=== PATIENT | male | born 1995 | race Caucasian/White ===

== ENCOUNTER 2019-01-20 19:48 | Emergency (ER) | payer BC ==
[2019-01-20 20:19] LABS: BASOPHILS # (AUTO) 0.1 10^3/uL (0.0-0.1); BASOPHILS % (AUTO) 0.5 %; EOSINOPHILS # (AUTO) 0.1 10^3/uL (0.0-0.7); EOSINOPHILS % (AUTO) 0.3 %; HGB - HEMOGLOBIN 12.8 g/dL (14.0-18.0); LYMPHOCYTES # (AUTO) 1.4 10^3/uL (1.5-3.5); LYMPHOCYTES % (AUTO) 7.5 %; MEAN CORPUSCULAR HEMOGLOBIN 27.9 pg (27.0-31.0); MEAN CORPUSCULAR HGB CONC 32.5 g/dL (32.0-36.0); MEAN CORPUSCULAR VOLUME 85.8 fL (80.0-94.0); MEAN PLATELET VOLUME 9.7 fL (7.4-11.4); MONOCYTES # (AUTO) 0.7 10^3/uL (0.0-1.0); MONOCYTES % (AUTO) 3.8 %; NEUTROPHILS # (AUTO) 16.3 10^3/uL (1.5-6.6); NEUTROPHILS % (AUTO) 87.3 %; PLT - PLATELET COUNT 323 10^3/uL (130-450); RED BLOOD COUNT 4.59 10^6/uL (4.70-6.10); RED CELL DISTRIBUTION WIDTH 13.1 % (12.0-15.0); WHITE BLOOD COUNT 18.6 x10^3/uL (4.8-10.8)
[2019-01-20 20:32] LABS: ALBUMIN 4.7 g/dL (3.2-5.5); ALBUMIN/GLOBULIN RATIO 1.3 (1.0-2.2); BILIRUBIN,TOTAL 0.6 mg/dL (0.2-1.0); CALCIUM 9.2 mg/dL (8.5-10.3); CREATININE 1.1 mg/dL (0.6-1.2); TOTAL PROTEIN 8.3 g/dL (6.7-8.2)
--- NOTE | 2019-01-20 20:34 | ED Physician Documentation ---
PD HPI ABD PAIN - Stated complaint Stated Complaint: ADB PAIN - ILLEOSTOMY - Chief complaint Chief Complaint: Abd Pain - History obtained from History obtained from: Patient - History of Present Illness Timing - onset: Enter time (17:30), Today Timing - duration: Hours Timing - details: Abrupt onset Pain level max: 10 Pain level now: 9 Quality: Pain Location: All over / everywhere (predominantly across lower abdomen) Radiation: Other (does not radiate) Improved by: Vomiting (partial and transient improvement with vomiting) Worsened by: Position, Palpation Associated symptoms: Nausea, Vomiting. No: Fever, Diarrhea, Constipation Similar symptoms before: Has not had sx before (signifiant h/o abdominal problems but these symptoms are not reminiscent of previous issues) Recently seen: Not recently seen - Additional information Additional information: c/o rapid onset abdominal pain across lower abdomen since 5:30 this afternoon while at work. He left work and went home but his pain steadily worsened, becoming associated with nausea and vomiting. He has h/o Crohn's disease with bowel perforation requiring colectomy and ileostomy (October 2017). Review of Systems Constitutional: reports: Reviewed and negative Eyes: reports: Reviewed and negative Ears: reports: Reviewed and negative Nose: reports: Reviewed and negative Throat: reports: Reviewed and negative Cardiac: reports: Reviewed and negative Respiratory: reports: Reviewed and negative GI: reports: Abdominal Pain, Nausea, Vomiting. denies: Abdominal Swelling, Constipation, Diarrhea : denies: Dysuria, Frequency Skin: reports: Reviewed and negative Musculoskeletal: reports: Reviewed and negative Neurologic: reports: Reviewed and negative PD PAST MEDICAL HISTORY - Past Medical History Past Medical History: Yes GI: Crohn's disease - Past Surgical History Past Surgical History: Yes General: Bowel surgery, Other (ileostomy) - Allergies Allergies/Adverse Reactions: Allergies Allergy/AdvReac Type Severity Reaction Status Date / Time No Known Drug Allergies Allergy Verified 01/20/19 19:53 - Living Situation Living Arrangement: reports: At home - Social History Does the pt smoke?: No PD ED PE NORMAL - Vitals Vital signs reviewed: Yes - General General: Alert and oriented X 3, Well developed/nourished, Other (obvious painful distress) - HEENT HEENT: Moist mucous membranes - Neck Neck: Supple, no meningeal sign - Cardiac Cardiac: RRR, No murmur, No gallop, No rub - Respiratory Respiratory: No respiratory distress, Clear bilaterally - Abdomen Abdomen: Soft, Non distended - Back Back: No CVA TTP - Derm Derm: Normal color, Warm and dry PD ED PE EXPANDED - Abdomen Abdomen: Decreased BS, Tender to palpation (TTP diffusely but predominantly BLQ , no rebound or guarding) Results - Vitals Vitals: Vital Signs - 24 hr 01/20/19 01/20/19 01/20/19 19:53 20:44 21:40 Temperature 34.9 C L Heart Rate 88 99 76 Respiratory 22 17 15 Rate Blood Pressure 136/76 H 126/64 120/58 L O2 Saturation 100 100 100 01/20/19 01/20/19 22:27 23:08 Temperature 36.8 C Heart Rate 85 80 Respiratory 15 15 Rate Blood Pressure 122/60 110/52 L O2 Saturation 99 98 Oxygen O2 Source Room air - Labs Labs: Laboratory Tests 01/20/19 01/20/19 01/20/19 20:10 20:10 23:24 WBC 18.6 H RBC 4.59 L Hgb 12.8 L Hct 39.4 L MCV 85.8 MCH 27.9 MCHC 32.5 RDW 13.1 Plt Count 323 MPV 9.7 Neut # (Auto) 16.3 H Lymph # (Auto) 1.4 L [place] # (Auto) 0.7 Eos # (Auto) 0.1 Baso # (Auto) 0.1 Absolute Nucleated RBC 0.00 Nucleated RBC % 0.0 Sodium 137 Potassium 4.0 Chloride 102 Carbon Dioxide 24 Anion Gap 11.0 BUN 25 H Creatinine 1.1 Estimated GFR (MDRD) 85 L Glucose 120 H Calcium 9.2 Total Bilirubin 0.6 AST 23 ALT 22 Alkaline Phosphatase 98 Total Protein 8.3 H Albumin 4.7 Globulin 3.6 Albumin/Globulin Ratio 1.3 Lipase 27 Urine Color YELLOW Urine Clarity CLEAR Urine pH 5.5 Ur Specific [place] 1.020 Urine Protein 100 H Urine Glucose (UA) NEGATIVE Urine Ketones 15 H Urine Occult Blood LARGE H Urine Nitrite NEGATIVE Urine Bilirubin NEGATIVE Urine Urobilinogen 0.2 (NORMAL) Ur Leukocyte Esterase NEGATIVE Urine RBC 6-10 H Urine WBC 0-3 Ur Squamous Epith Cells RARE Squamous Urine Bacteria Rare Urine Casts 0-2 Hyaline Casts Ur Microscopic Review INDICATED Urine Culture Comments NOT INDICATED - Rads (name of study) CT A/P Radiology: Prelim report reviewed, See rad report acute abd. xrays Radiology: Prelim report reviewed, See rad report PD MEDICAL DECISION MAKING - ED course Complexity details: reviewed results, re-evaluated patient, considered differential, d/w patient ED course: good symptom control with single dose of 1mg IV dilaudid and 4mg IV zofran. did not require nor request further medications during ED stay. CT does not show acute abnormalities nor findings to explain his abdominal pain. subsequent plain film xrays showed progression of the contrast. Patient comfortable with d/c home, return if worse, f/u with PMD Departure - Departure Disposition: 01 Home, Self Care Clinical Impression: Abdominal pain Qualifiers: Abdominal location: generalized Qualified Code(s): R10.84 - Generalized abdominal pain Condition: Good Instructions: ED Abdominal Pain Unkn Cause Male Follow-Up: Sabina Pennington ARNP [Primary Care Provider] - Discharge Date/Time: 01/21/19 01:16
[2019-01-20] MEDS ORDERED: HYDROmorphone 1 MG/ML CARPUJECT IVP STA (20:49)
[2019-01-20] MEDS ORDERED: ONDANSETRON 4 MG/2 ML VIAL IVP STA (20:49)
[2019-01-20] MEDS ORDERED: SODIUM CHLORIDE 0.9% 1,000 ML IV STA (20:49)
[2019-01-20] MEDS ORDERED: IOVERSOL 320 100 ML VIAL IVP ONE ×2 (20:51→22:08)
[2019-01-20] MEDS ORDERED: IOVERSOL 320 50 ML VIAL ONE (20:51)
[2019-01-20] MEDS ORDERED: IOVERSOL 320 50 ML VIAL PO ONE (22:08)
--- NOTE | 2019-01-20 22:27 | CT Report ---
Reason: abdominal pain, ileostomy Procedure Date: 01/20/2019 Accession Number: [id number] / [id number] Procedure: CT - Abdomen/Pelvis W CPT Code: Final Report FULL RESULT: EXAM: CT ABDOMEN AND PELVIS EXAM DATE: 01/20/2019 10:10 PM. CLINICAL HISTORY: Abdominal pain, ileostomy. COMPARISONS: None. TECHNIQUE: Routine helical CT imaging was performed through the abdomen and pelvis. IV contrast: OPTI 320 100ML. Enteric contrast: No. Reconstructions: Coronal and sagittal. In accordance with CT protocol optimization, one or more of the following dose reduction techniques were utilized for this exam: automated exposure control, adjustment of mA and/or KV based on patient size, or use of iterative reconstructive technique. FINDINGS: Lung Bases: Unremarkable. Liver: Normal. No masses. Gallbladder/Bile Ducts: Unremarkable. Spleen: Normal. Pancreas: Normal. Adrenal Glands: Normal. Kidneys: Normal. No masses or hydronephrosis. Peritoneal Cavity/Bowel: Oral contrast has reached the mid small bowel. Right lower quadrant ileostomy is noted. There is no bowel dilatation that would suggest obstruction. No free air or free fluid. Patient is status post subtotal colectomy, suture line is seen along the proximal rectum. Pelvic Organs: Normal. The bladder and visualized pelvic organs are within normal limits. Vasculature: No aneurysms or other significant abnormality. Bones: No significant abnormality. Other: None. IMPRESSION: Status post subtotal colectomy, with right lower quadrant ileostomy. Oral contrast has only reached the mid small bowel, but there is no CT evidence of a bowel obstruction. Obtain abdominal radiographs if desire to watch contrast fill the ileostomy. Otherwise unremarkable exam. RADIA
[2019-01-20 23:08] VITALS: BP 110/52
[2019-01-20 23:28] LABS: BILIRUBIN,URINE NEGATIVE (NEGATIVE); GLUCOSE, URINE (UA) NEGATIVE (NEGATIVE); KETONES,URINE (UA) 15 mg/dL (NEGATIVE); LEUKOCYTE ESTERASE, URINE NEGATIVE (NEGATIVE); NITRITE,URINE NEGATIVE (NEGATIVE); OCCULT BLOOD,URINE LARGE (NEGATIVE); PH,URINE 5.5 PH (5.0-7.5); PROTEIN,URINE 100 mg/dL (NEGATIVE); UROBILINOGEN,URINE 0.2 (NORMAL) E.U./dL (NORMAL)
[2019-01-20 23:31] LABS: CLARITY,URINE CLEAR (CLEAR)
[2019-01-20 23:41] LABS: BACTERIA,URINE Rare /HPF (None Seen); CASTS, URINE 0-2 Hyaline Casts /LPF; SQUAMOUS EPITHELIAL CELL,UR RARE Squamous (<= Few)
--- NOTE | 2019-01-21 00:38 | XRAY Report ---
Reason: abd. pain Procedure Date: 01/21/2019 Accession Number: [id number] / [id number] Procedure: XR - Abdomen Acute CPT Code: Final Report FULL RESULT: EXAM: ABDOMINAL SERIES AND PA CHEST EXAM DATE: 01/21/2019 12:19 AM. CLINICAL HISTORY: Abd. pain. COMPARISON: ABDOMEN/PELVIS W/ 01/20/2019 9:58 PM. TECHNIQUE: 2 views abdomen and 1 view chest. FINDINGS: CHEST: Lungs/Pleura: No focal opacities. No effusion or pneumothorax. Mediastinum: Within exam limitations, cardiomediastinal contour is normal. ABDOMEN: Bowel Gas Pattern: No dilated loops or abnormal fluid levels. Free Air: None. Other: Oral contrast material in the distal small bowel. Excreted intravenous contrast material in the urinary collecting system. IMPRESSION: Interval passage of contrast material into distal loops of small bowel. RADIA
== END 2019-01-21 01:16 | disposition home or self-care (01) ==
LOC: ED 19:48
DX: R10.84 Generalized abdominal pain (principal); R11.2 Nausea with vomiting, unspecified; Z87.19 Personal history of other diseases of the digestive system; Z90.49 Acquired absence of other specified parts of digestive tract; Z93.2 Ileostomy status
CPT/HCPCS: 36415; 74022; 74177; 80053; 81001; 83690; 85025; 96361; 96374; 96375; 99284; J1170; Q9967; 81003; 87086

== ENCOUNTER 2019-05-05 21:34 | Emergency (ER) | payer OTHER, BC ==
--- NOTE | 2019-05-05 21:54 | ED Physician Documentation ---
History of Present Illness - Stated complaint Stated Complaint: VOMITING/AB PX - Chief complaint Chief Complaint: Abd Pain - Additonal information Additional information: 23-year-old male with history of Crohn's disease status post ileostomy presents with abdominal pain. He states his current pain began this morning and has progressed through the day and is now 10 out of 10 and severe but worse in his left lower quadrant. He has not noticed changes to the output of his ostomy. No blood in his stool or in his vomit. He has thrown up several times today. No fever. No pain or burning with urination. He follows with the [facility]. Review of Systems Constitutional: denies: Fever Nose: denies: Rhinorrhea / runny nose Cardiac: denies: Chest pain / pressure GI: reports: Abdominal Pain, Vomiting : denies: Dysuria Skin: denies: Rash Neurologic: denies: Generalized weakness Immunocompromised: denies: Immunocompromised PD PAST MEDICAL HISTORY - Past Medical History GI: Crohn's disease - Past Surgical History Past Surgical History: Yes General: Bowel surgery, Other (ileostomy) - Allergies Allergies/Adverse Reactions: Allergies Allergy/AdvReac Type Severity Reaction Status Date / Time No Known Drug Allergies Allergy Verified 01/20/19 19:53 - Social History Does the pt smoke?: No PD ED PE NORMAL - Vitals Vital signs reviewed: Yes - General General: Alert and oriented X 3, Other (Uncomfortable but nontoxic-appearing) - HEENT HEENT: PERRL - Neck Neck: Supple, no meningeal sign - Cardiac Cardiac: RRR, No murmur - Respiratory Respiratory: No respiratory distress, Clear bilaterally - Abdomen Abdomen: Other (Well-healed abdominal incisional scars, ostomy present with liquidy output. Diffuse tenderness but no guarding, No focal tenderness.) - Derm Derm: Warm and dry - Extremities Extremities: No deformity - Neuro Neuro: Alert and oriented X 3 Results - Vitals Vitals: Oxygen O2 Source Room air - Labs Labs: Laboratory Tests 05/05/19 05/05/19 21:50 21:50 WBC 18.8 H RBC 5.49 Hgb 15.3 Hct 46.6 MCV 84.9 MCH 27.9 MCHC 32.8 RDW 12.9 Plt Count 399 MPV 9.7 Neut # (Auto) 15.2 H Lymph # (Auto) 2.5 [place] # (Auto) 0.9 Eos # (Auto) 0.0 Baso # (Auto) 0.1 Absolute Nucleated RBC 0.00 Nucleated RBC % 0.0 Sodium 136 Potassium 3.8 Chloride 101 Carbon Dioxide 22 Anion Gap 13.0 BUN 23 H Creatinine 1.2 Estimated GFR (MDRD) 76 L Glucose 149 H Calcium 9.4 Total Bilirubin 0.9 AST 29 ALT 25 Alkaline Phosphatase 95 Total Protein 8.9 H Albumin 4.7 Globulin 4.3 H Albumin/Globulin Ratio 1.1 Lipase 24 - Rads (name of study) CT abd/pelvis W Radiology: Other (Dilated small bowel loops with transition point suggestive of developing partial to complete SBO. Inflammation of small bowel that may be due to Crohn's.) PD MEDICAL DECISION MAKING - ED course Complexity details: considered differential (Obstruction, Crohn's flare, enteritis, cystitis, pancreatitis, bowel perforation, gastritis) ED course: Patient arrives very uncomfortable, is hemodynamically stable, he has a tender abdomen. IV was inserted and he was given morphine but did not have adequate pain relief so he was given hydromorphone as well as Zofran and Reglan for nausea and a liter of fluids bolus. He had a white count of 18.8 and he is exquisitely tender abdomen so CT was ordered which showed dilated bowel, transition point as well as small bowel inflammation consistent with a likely Crohn's flare with developing bowel obstruction. This appears partial at this time as he is having ostomy output. I spoke with Dr. Garrison of our general surgery service and she feels the patient be best served at a center with more specialty availability as well as GI. I spoke with Dr. Flores of gastroenterology [facility], who accepted the patient for transfer. She states steroids can be defered until his arrival there. Patient and his mother are in agreement with this plan. He did require additional doses of pain medication as well as nausea medication to keep his pain controlled. He remains hemodynamically stable at the time of transfer via ALS. Departure - Departure Disposition: 02 Transfer Acute Care Hosp Clinical Impression: Crohn's disease Qualifiers: Gastrointestinal tract location: unspecified location Digestive disease complication type: unspecified complication Qualified Code(s): K50.919 - Crohn's disease, unspecified, with unspecified complications Bowel obstruction Qualifiers: Intestinal obstruction type: unspecified Intestinal obstruction extent: unspe cified extent Qualified Code(s): K56.609 - Unspecified intestinal obstruction, unspecified as to partial versus complete obstruction Condition: Stable Discharge Date/Time: 05/06/19 03:45
[2019-05-05] MEDS ORDERED: MORPHINE 10 MG/ML VIAL IVP STA (22:02)
[2019-05-05] MEDS ORDERED: ONDANSETRON 4 MG/2 ML VIAL IVP STA (22:02)
[2019-05-05] MEDS ORDERED: SODIUM CHLORIDE 0.9% 1,000 ML IV STA (22:02)
[2019-05-05 22:08] LABS: BASOPHILS # (AUTO) 0.1 10^3/uL (0.0-0.1); BASOPHILS % (AUTO) 0.4 %; EOSINOPHILS % (AUTO) 0.2 %; HGB - HEMOGLOBIN 15.3 g/dL (14.0-18.0); LYMPHOCYTES # (AUTO) 2.5 10^3/uL (1.5-3.5); LYMPHOCYTES % (AUTO) 13.1 %; MEAN CORPUSCULAR HEMOGLOBIN 27.9 pg (27.0-31.0); MEAN CORPUSCULAR HGB CONC 32.8 g/dL (32.0-36.0); MEAN CORPUSCULAR VOLUME 84.9 fL (80.0-94.0); MEAN PLATELET VOLUME 9.7 fL (7.4-11.4); MONOCYTES # (AUTO) 0.9 10^3/uL (0.0-1.0); MONOCYTES % (AUTO) 4.6 %; NEUTROPHILS # (AUTO) 15.2 10^3/uL (1.5-6.6); PLT - PLATELET COUNT 399 10^3/uL (130-450); RED BLOOD COUNT 5.49 10^6/uL (4.70-6.10); RED CELL DISTRIBUTION WIDTH 12.9 % (12.0-15.0); WHITE BLOOD COUNT 18.8 x10^3/uL (4.8-10.8)
[2019-05-05 22:21] LABS: ALBUMIN 4.7 g/dL (3.2-5.5); ALBUMIN/GLOBULIN RATIO 1.1 (1.0-2.2); BILIRUBIN,TOTAL 0.9 mg/dL (0.2-1.0); CALCIUM 9.4 mg/dL (8.5-10.3); CREATININE 1.2 mg/dL (0.6-1.2); TOTAL PROTEIN 8.9 g/dL (6.7-8.2)
[2019-05-05] MEDS ORDERED: HYDROmorphone 1 MG/ML SYRINGE IVP STA (22:36)
[2019-05-05] MEDS ORDERED: METOCLOPRAMIDE 10 MG/2 ML VIAL IVP PRN (22:37)
[2019-05-05] MEDS ORDERED: IOVERSOL 320 100 ML VIAL IVP ONE ×2 (22:44→23:08)
[2019-05-06] MEDS ORDERED: HYDROmorphone 1 MG/ML SYRINGE ONE (00:02)
--- NOTE | 2019-05-06 00:02 | CT Report ---
Reason: Crohn's, s/p ileostomy, severe diffuse pain Procedure Date: 05/05/2019 Accession Number: [id number] / [id number] Procedure: CT - Abdomen/Pelvis W CPT Code: Final Report FULL RESULT: EXAM: CT ABDOMEN AND PELVIS WITH CONTRAST. EXAM DATE: 05/05/2019 11:11 PM. CLINICAL HISTORY: Crohn's, status post ileostomy, severe diffuse pain. COMPARISONS: ABDOMEN/PELVIS W/ 01/20/2019 9:58 PM. TECHNIQUE: Routine helical CT imaging was performed through the abdomen and pelvis. IV contrast: OPTIRAY 320 100 mL. Enteric contrast: No. Reconstructions: Coronal and sagittal. In accordance with CT protocol optimization, one or more of the following dose reduction techniques were utilized for this exam: automated exposure control, adjustment of mA and/or KV based on patient size, or use of iterative reconstructive technique. FINDINGS: ABDOMEN: Liver: No significant abnormality. Stomach/Distal Esophagus: No significant abnormality. Gallbladder: No significant abnormality. Bile Ducts: No significant abnormality. Pancreas: No significant abnormality. Spleen: No significant abnormality. Kidneys: No suspicious solid appearing lesion. No hydronephrosis. Adrenals: No significant abnormality. Bowel: Right lower quadrant ileostomy. Prior total colectomy noted. There is a moderately dilated loop of small bowel within the left lower quadrant region measuring 4 cm in diameter. There is a transition seen near the aortic bifurcation (image 55 series 3). Multifocal areas of small bowel wall thickening seen within the right lower quadrant region, coupled with surrounding inflammatory mesenteric stranding. Mild associated mesenteric lymphadenopathy is also noted. Appendix: Surgically absent. Lymph Nodes: No pathologically enlarged nodes. Vasculature: Normal caliber aorta. Fluid: No significant free fluid. Abdominal Wall: No significant abnormality. Other: No significant abnormality. PELVIS: Prostate and Seminal Vesicles: No significant abnormality. Bladder: No significant abnormality. Lymph Nodes: No pathologically enlarged nodes. Fluid: No significant free fluid. Other: None. BONES: No suspicious bony lesions. LOWER CHEST: No significant consolidation or effusion. IMPRESSION: 1. Dilated left lower quadrant small bowel loops with a transition within the central portion of the abdomen. Findings raise the possibility of partial and/or developing complete bowel obstruction. 2. Small bowel wall thickening and surrounding mesenteric stranding seen within the right lower quadrant region, representing inflammatory change. This could be secondary to known Crohn's disease. Other inflammatory enteritis difficult to exclude with certainty. 3. Prior total colectomy. Right lower quadrant ileostomy. RADIA
[2019-05-06] MEDS ORDERED: ONDANSETRON 4 MG/2 ML VIAL IVP STA ×2 (00:10→02:52)
[2019-05-06] MEDS ORDERED: HYDROmorphone 1 MG/ML SYRINGE IVP STA ×2 (02:52→03:08)
[2019-05-06] MEDS ORDERED: LACTATED RINGERS 1,000 ML IV SCH (03:00)
[2019-05-06 03:09] VITALS: BP 146/95
== END 2019-05-06 03:45 | disposition short-term general hospital (02) ==
LOC: ED 21:34
DX: K50.012 Crohn's disease of small intestine with intestinal obstruction (principal); Z90.49 Acquired absence of other specified parts of digestive tract; Z93.2 Ileostomy status
CPT/HCPCS: 36415; 74177; 80053; 83690; 85025; 96361; 96374; 96375; 96376; 99284; 99285; J1170; J2765; J7120; Q9967

== ENCOUNTER 2019-05-06 03:54 | Outpatient (CLI) | payer OTHER, BC | END 2019-05-06 03:55 | disposition short-term general hospital (02) | LOC: EMS 03:54 | PROVIDERS: ATTEND Surgery | DX: R10.30 Lower abdominal pain, unspecified (principal); R11.2 Nausea with vomiting, unspecified | CPT/HCPCS: A0425; A0426 ==

== ENCOUNTER 2019-09-06 06:13 | Emergency (ER) | payer OTHER, BC ==
[2019-09-06] MEDS ORDERED: ONDANSETRON 4 MG/2 ML VIAL IVP STA ×3 (06:33→12:22)
[2019-09-06] MEDS ORDERED: HYDROmorphone 0.5 MG/0.5 ML SYRINGE IVP STA (06:33)
[2019-09-06] MEDS ORDERED: SODIUM CHLORIDE 0.9% 1,000 ML IV STA ×2 (06:33→14:23)
--- NOTE | 2019-09-06 06:36 | ED Physician Documentation ---
<Elmo Miles - Last Filed: 09/06/19 06:34> History of Present Illness - Stated complaint Stated Complaint: N/V - Chief complaint Chief Complaint: Abd Pain - History obtained from History obtained from: Patient (23 y/o m w hx of crohns w ileostomy w hx of bowel obstructions w surgery originally performed in [place], [place]. Currently followed by GI in [place], was admitted there in April 2019. Reports severe pain with vomiting. denies fevers.) Review of Systems Constitutional: reports: Reviewed and negative Eyes: reports: Reviewed and negative Ears: reports: Reviewed and negative Nose: reports: Reviewed and negative Throat: reports: Reviewed and negative Cardiac: reports: Reviewed and negative Respiratory: reports: Reviewed and negative GI: reports: Abdominal Pain, Abdominal Swelling, Nausea, Vomiting : reports: Reviewed and negative Skin: reports: Reviewed and negative Musculoskeletal: reports: Reviewed and negative Neurologic: reports: Reviewed and negative Psychiatric: reports: Reviewed and negative Endocrine: reports: Reviewed and negative Immunocompromised: reports: Reviewed and negative PD PAST MEDICAL HISTORY - Past Medical History Cardiovascular: None Respiratory: None Neuro: None Endocrine/Autoimmune: None GI: Crohn's disease : None HEENT: None Psych: None Musculoskeletal: None Derm: None - Past Surgical History Past Surgical History: Yes General: Bowel surgery, Other (ileostomy) - Present Medications Home Medications: Ambulatory Orders Medication Instructions Recorded Confirmed Minocycline HCl 1 cap PO DAILY 09/06/19 09/06/19 Multivitamin [Multivitamins] 1 cap PO DAILY 09/06/19 09/06/19 - Allergies Allergies/Adverse Reactions: Allergies Allergy/AdvReac Type Severity Reaction Status Date / Time No Known Drug Allergies Allergy Verified 09/06/19 07:04 - Social History Does the pt smoke?: No Smoking Status: Never smoker - Immunizations Immunizations are current?: Yes - POLST Patient has POLST: No PD ED PE NORMAL - Vitals Vital signs reviewed: Yes - General General: Alert and oriented X 3, Well developed/nourished, Other (moaning in pain.) - HEENT HEENT: PERRL - Neck Neck: Supple, no meningeal sign - Cardiac Cardiac: RRR, No murmur - Respiratory Respiratory: Clear bilaterally - Abdomen Abdomen: Other (ostomy in place, no blood noted. abd is diffusely ttp. no midline abd pulsatile mass. ) - Derm Derm: Warm and dry - Extremities Extremities: No deformity - Neuro Neuro: Alert and oriented X 3 - Psych Psych: Normal mood, Normal affect PD MEDICAL DECISION MAKING - ED course Complexity details: re-evaluated patient, considered differential (hx and exam concerning for bowel obstruction.), d/w patient, d/w family, other (patient is signed out to dr. good at shift change.) Departure - Departure Disposition: 02 Transfer Acute Care Hosp Clinical Impression: Abdominal pain Qualifiers: Abdominal location: unspecified location Qualified Code(s): R10.9 - Unspecified abdominal pain Crohn's disease Qualifiers: Gastrointestinal tract location: small intestine Digestive disease complication type: unspecified complication Qualified Code(s): K50.019 - Crohn's disease of small intestine with unspecified complications Bowel obstruction Qualifiers: Intestinal obstruction type: other intestinal obstruction Intestinal obstruction extent: unspecified extent Qualified Code(s): K56.699 - Other intestinal obstruction unspecified as to partial versus complete obstruction Condition: Stable <Satish Good - Last Filed: 09/06/19 10:53> History of Present Illness - History obtained from History obtained from: Patient, Family - History of Present Illness Timing: Enter time (2100), Last night - Additonal information Additional information: 23-year-old male with an 8-year history of Crohn's colitis as developed symptoms again of severe pain and vomiting. He has had a reduced output from his ostomy. He is on Entyvio and is due for an injection in 3 days. He is due to see his apprenticeship training representative in 2 days. He reports fair improvement since starting the Entyvio. He indicates that he will sometimes have symptoms with overeating and sometimes have symptoms when he has too much fluid with solid foods. Indicates he was not ill prior to this did have a sore throat for 1 day with mild pain with swallowing only. Review of Systems Constitutional: reports: Fatigue. 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15 Hgb 14.5 Hct 42.5 MCV 82.5 MCH 28.2 MCHC 34.1 RDW 12.5 Plt Count 369 MPV 9.6 Neut # (Auto) 19.0 H Lymph # (Auto) 1.5 Ogle # (Auto) 0.9 Eos # (Auto) 0.0 Baso # (Auto) 0.1 Absolute Nucleated RBC 0.00 Band Neuts % (Manual) Not Reportable Abnorm Lymph % (Manual) Not Reportable Nucleated RBC % 0.0 Neutrophils # (Manual) Not Reportable Lymphocytes # (Manual) Not Reportable Monocytes # (Manual) Not Reportable Eosinophils # (Manual) Not Reportable Basophils # (Manual) Not Reportable Differential Comment MANUAL=AUTO DIFF WBC Morphology NORMAL APPEARANCE Platelet Estimate NORMAL (130-450,000) Platelet Morphology NORMAL APPEARANCE RBC Morph Micro Appear NORMAL APPEARANCE PT 13.8 H INR 1.2 APTT 31.1 Sodium 136 Potassium 3.6 Chloride 102 Carbon Dioxide 19 L Anion Gap 15.0 H BUN 26 H Creatinine 1.2 Estimated GFR (MDRD) 76 L Glucose 159 H Lactic Acid Calcium 9.8 Magnesium 1.7 Total Bilirubin 1.5 H AST 24 ALT 18 Alkaline Phosphatase 77 Total Creatine Kinase 320 H Total Protein 8.2 Albumin 5.0 Globulin 3.2 Albumin/Globulin Ratio 1.6 Lipase 36 Ethyl Alcohol < 5.0 09/06/19 06:55 WBC RBC Hgb Hct MCV MCH MCHC RDW Plt Count MPV Neut # (Auto) Lymph # (Auto) Ogle # (Auto) Eos # (Auto) Baso # (Auto) Absolute Nucleated RBC Band Neuts % (Manual) Abnorm Lymph % (Manual) Nucleated RBC % Neutrophils # (Manual) Lymphocytes # (Manual) Monocytes # (Manual) Eosinophils # (Manual) Basophils # (Manual) Differential Comment WBC Morphology Platelet Estimate Platelet Morphology RBC Morph Micro Appear PT INR APTT Sodium Potassium Chloride Carbon Dioxide Anion Gap BUN Creatinine Estimated GFR (MDRD) Glucose Lactic Acid 1.8 Calcium Magnesium Total Bilirubin AST ALT Alkaline Phosphatase Total Creatine Kinase Total Protein Albumin Globulin Albumin/Globulin Ratio Lipase Ethyl Alcohol - Rads (name of study) CT AB/PEL Radiology: Prelim report reviewed (Impression: 1. The CT findings are consistent with high-grade small bowel obstruction. 2. Postsurgical changes with near total colectomy. There is an ileostomy in the right lower quadrant.), EMP read indepedently, See rad report PD MEDICAL DECISION MAKING - ED course Complexity details: reviewed old records, reviewed results, re-evaluated patient, considered differential, d/w patient, d/w family ED course: 23-year-old male with history of Crohn's disease appears to have an acute flare several days before his next dose of Entyvio. The patient peers to be in pain and is vomiting. He is administered antiemetics and pain medication and he is hydrated. A CT scan of the abdomen pelvis is undertaken. The CT scan shows a high-grade obstruction similar to previous and the apprenticeship training representative Dr. Ponce at [facility] in [place] is consulted and she recommends transfer the patient for admission to the hospitalist service and conservative therapy. She indicates that 4 months of Entyvio and the persistence of an obstructive area would suggest fibrotic tissue area of narrowing that may require surgery or this may continue to recur.Patient is treated here in the emergency department with saline Dilaudid and Zofran with improvement.
[2019-09-06 07:05] LABS: BASOPHILS # (AUTO) 0.1 10^3/uL (0.0-0.1); BASOPHILS % (AUTO) 0.3 %; HGB - HEMOGLOBIN 14.5 g/dL (14.0-18.0); LYMPHOCYTES # (AUTO) 1.5 10^3/uL (1.5-3.5); LYMPHOCYTES % (AUTO) 6.8 %; MEAN CORPUSCULAR HEMOGLOBIN 28.2 pg (27.0-31.0); MEAN CORPUSCULAR HGB CONC 34.1 g/dL (32.0-36.0); MEAN CORPUSCULAR VOLUME 82.5 fL (80.0-94.0); MEAN PLATELET VOLUME 9.6 fL (7.4-11.4); MONOCYTES # (AUTO) 0.9 10^3/uL (0.0-1.0); MONOCYTES % (AUTO) 4.2 %; NEUTROPHILS % (AUTO) 87.9 %; PLT - PLATELET COUNT 369 10^3/uL (130-450); RED BLOOD COUNT 5.15 10^6/uL (4.70-6.10); RED CELL DISTRIBUTION WIDTH 12.5 % (12.0-15.0); WHITE BLOOD COUNT 21.7 x10^3/uL (4.8-10.8)
[2019-09-06] MEDS ORDERED: IOVERSOL 320 100 ML VIAL IVP ONE ×2 (07:06→08:33)
[2019-09-06 07:09] LABS: INR 1.2 (0.8-1.2); PT - PROTHROMBIN TIME 13.8 secs (9.9-12.6)
[2019-09-06 07:16] LABS: PARTIAL THROMBOPLASTIN TIME 31.1 secs (24.9-33.3)
[2019-09-06 07:17] LABS: ALBUMIN/GLOBULIN RATIO 1.6 (1.0-2.2); ALKALINE PHOSPHATASE 77 IU/L (42-121); ALT ALANINE AMINOTRANSFERASE 18 IU/L (10-60); AST ASPARTATE AMINOTRANSFERASE 24 IU/L (10-42); BILIRUBIN,TOTAL 1.5 mg/dL (0.2-1.0); BUN - BLOOD UREA NITROGEN 26 mg/dL (6-20); CALCIUM 9.8 mg/dL (8.5-10.3); CARBON DIOXIDE - CO2 19 mmol/L (21-32); CHLORIDE 102 mmol/L (101-111); CK- CREATINE KINASE 320 IU/L (22-269); CREATININE 1.2 mg/dL (0.6-1.2); GLUCOSE 159 mg/dL (70-100); LIPASE 36 U/L (22-51); MAGNESIUM 1.7 mg/dL (1.7-2.8); SODIUM 136 mmol/L (135-145); TOTAL PROTEIN 8.2 g/dL (6.7-8.2)
[2019-09-06 07:30] LABS: PLATELET ESTIMATE, MANUAL NORMAL (130-450,000) (NORMAL); PLATELET MORPHOLOGY NORMAL APPEARANCE (NORMAL); RBC MORPHOLOGY (MULTIPLE) NORMAL APPEARANCE (NORMAL)
[2019-09-06 07:31] LABS: DIFFERENTIAL COMMENT MANUAL=AUTO DIFF
[2019-09-06] MEDS ORDERED: HYDROmorphone 1 MG/ML CARPUJECT IVP STA ×4 (07:31→16:02)
--- NOTE | 2019-09-06 08:58 | CT Report ---
PROCEDURE: Abdomen/Pelvis W INDICATIONS: abd pain CONTRAST: IV CONTRAST: Optiray 320 ml: 100 PO CONTRAST: *NO PO CONTRAST TECHNIQUE: After the administration of oral and intravenous contrast, 5 mm thick sections acquired from the diap hragms to the symphysis. 5 mm thick coronal and sagittal reformats were acquired. For radiation dos e reduction, the following was used: automated exposure control, adjustment of mA and/or kV accordin g to patient size. COMPARISON: CT abdomen and pelvis with contrast 05/05/2019 and 01/20/2019. FINDINGS: Image quality: Excellent. ABDOMEN: Lung bases: Lung bases are clear. Heart size is normal. Solid organs: Liver and spleen are normal in size and enhancement. Gallbladder is normal Biliary s ystem is non dilated. Pancreas enhances normally. No adrenal nodules. Kidneys demonstrate normal s ize and enhancement, without hydronephrosis. Peritoneum and bowel: There is near-total right colectomy. There is a ileostomy in the right lower qu adrant. Small bowel loops are mildly distended measuring up to 3.8 cm in diameter. There is an air-fl uid level in mid abdomen. A transitional point is identified in the mid abdomen with decompressed sma ll intestine.. No free fluid or air. Nodes and vessels: No retroperitoneal or mesenteric adenopathy by size criteria. Slightly prominent mesenteric lymph nodes are noted. Aorta and inferior vena cava are normal in size. Miscellaneous: No ventral hernias. PELVIS: Genitourinary: Bladder wall thickness is normal. Miscellaneous: No inguinal hernias or adenopathy. Bones: No suspicious bony lesions. No vertebral body compression fractures. IMPRESSION: 1. The CT findings are consistent with high-grade small bowel obstruction. 2. Postsurgical changes with near total colectomy. There is an ileostomy in the right lower quadrant. Reviewed by: Eduardo Kauffman MD on 09/06/2019 8:57 AM PDT Approved by: Eduardo Kauffman MD on 09/06/2019 8:57 AM PDT Station ID: [id number]
[2019-09-06 15:41] VITALS: BP 134/76
== END 2019-09-06 16:25 | disposition short-term general hospital (02) ==
LOC: ED 06:13
DX: K50.012 Crohn's disease of small intestine with intestinal obstruction (principal); Z90.49 Acquired absence of other specified parts of digestive tract; Z93.2 Ileostomy status
CPT/HCPCS: 36415; 74177; 80053; 80320; 82550; 83605; 83690; 83735; 85025; 85610; 85730; 96361; 96374; 96375; 96376; 99285; J1170; Q9967

== ENCOUNTER 2020-07-31 22:01 | Emergency (ER) | payer OTHER, BC ==
[2020-07-31 22:34] LABS: BASOPHILS # (AUTO) 0.1 10^3/uL (0.0-0.1); BASOPHILS % (AUTO) 0.3 %; EOSINOPHILS # (AUTO) 0.1 10^3/uL (0.0-0.7); EOSINOPHILS % (AUTO) 0.7 %; HCT - HEMATOCRIT 44.5 % (42.0-52.0); HGB - HEMOGLOBIN 14.7 g/dL (14.0-18.0); LYMPHOCYTES # (AUTO) 1.6 10^3/uL (1.5-3.5); LYMPHOCYTES % (AUTO) 10.1 %; MEAN CORPUSCULAR HEMOGLOBIN 27.6 pg (27.0-31.0); MEAN CORPUSCULAR VOLUME 83.6 fL (80.0-94.0); MEAN PLATELET VOLUME 9.7 fL (7.4-11.4); MONOCYTES % (AUTO) 6.1 %; NEUTROPHILS # (AUTO) 13.3 10^3/uL (1.5-6.6); NEUTROPHILS % (AUTO) 82.4 %; PLT - PLATELET COUNT 279 10^3/uL (130-450); RED BLOOD COUNT 5.32 10^6/uL (4.70-6.10); WHITE BLOOD COUNT 16.2 x10^3/uL (4.8-10.8)
[2020-07-31 22:44] LABS: ALBUMIN 4.8 g/dL (3.2-5.5); ALBUMIN/GLOBULIN RATIO 1.3 (1.0-2.2); BILIRUBIN,TOTAL 1.2 mg/dL (0.2-1.0); CALCIUM 9.5 mg/dL (8.5-10.3); POTASSIUM 4.2 mmol/L (3.5-5.0); TOTAL PROTEIN 8.5 g/dL (6.7-8.2)
--- NOTE | 2020-07-31 22:48 | ED Physician Documentation ---
PD HPI ABD PAIN - Stated complaint Stated Complaint: ABD PX - Chief complaint Chief Complaint: Abd Pain - History obtained from History obtained from: Patient - History of Present Illness Timing - onset: Enter time (10:00), Today Timing - details: Gradual onset Pain level max: 8 Pain level now: 3 Quality: Cramping Location: All over / everywhere (greatest around ostomy site) Radiation: Other (does not radiate) Improved by: Other (no ameliorating factors) Worsened by: Eating, Other (vomiting) Associated symptoms: Nausea, Vomiting. No: Fever, Diarrhea Similar symptoms before: Diagnosis (SBO, IBD) Recently seen: Not recently seen - Additional information Additional information: c/o gradual onset abdominal cramping pain, waxing and waning since 10 AM this morning. Frequency, intensity, and duration of pain increasingly steadily all day, becoming associated with nausea and vomiting and decreasing ostomy output. He is no longer able to tolerate any PO tonight. He has h/o multiple episodes of SBO without apparent cause despite extensive testing. He has an ostomy after subtotal colectomy that was performed in 2018 when he had perforated bowel due to IBD (Crohn's disease). He was admitted to [facility] twice last year (transferred from this ED) for SBO; he says both of these inpatient stays were 3-5 days and managed with IV steroids, antibiotics, and bowel rest. Review of Systems Constitutional: denies: Fever, Chills, Sweats Eyes: reports: Reviewed and negative Ears: reports: Reviewed and negative Nose: reports: Reviewed and negative Throat: reports: Reviewed and negative Cardiac: reports: Reviewed and negative Respiratory: reports: Reviewed and negative GI: reports: Abdominal Pain, Nausea, Vomiting. denies: Constipation, Diarrhea : denies: Dysuria, Frequency Skin: reports: Reviewed and negative Musculoskeletal: reports: Reviewed and negative Neurologic: reports: Reviewed and negative PD PAST MEDICAL HISTORY - Past Medical History Cardiovascular: None Respiratory: None Neuro: None Endocrine/Autoimmune: None GI: Crohn's disease : None HEENT: None Psych: None Musculoskeletal: None Derm: None - Past Surgical History Past Surgical History: Yes General: Bowel surgery, Other - Present Medications Home Medications: Ambulatory Orders Medication Instructions Recorded Confirmed Minocycline HCl 1 cap PO DAILY 09/06/19 08/01/20 Multivitamin [Multivitamins] 1 tab.chew PO DAILY 09/06/19 08/01/20 L.acid/L.casei/B.bif/B.ankit/Fos 2 cap PO DAILY 08/01/20 08/01/20 [Probiotic Blend Capsule] Loratadine [Allergy Relief] 10 mg PO DAILY 08/01/20 08/01/20 Turmeric 1 cap PO DAILY 08/01/20 08/01/20 - Allergies Allergies/Adverse Reactions: Allergies Allergy/AdvReac Type Severity Reaction Status Date / Time No Known Drug Allergies Allergy Verified 07/31/20 22:21 - Social History Does the pt smoke?: No Smoking Status: Never smoker Does the pt drink ETOH?: Yes Does the pt have substance abuse?: No - Immunizations Immunizations are current?: Yes - POLST Patient has POLST: No PD ED PE NORMAL - Vitals Vital signs reviewed: Yes - General General: Alert and oriented X 3, Well developed/nourished, Other (NAD at times but episodic obvious painful distress) - HEENT HEENT: Other (tacky mucous membranes) - Neck Neck: Supple, no meningeal sign - Cardiac Cardiac: RRR, No murmur - Respiratory Respiratory: No respiratory distress, Clear bilaterally - Abdomen Abdomen: Soft PD ED PE EXPANDED - Abdomen Abdomen: Absent BS, Tender to palpation (mild periumbilical tenderness to palpation without rebound or guarding) Results - Vitals Vitals: Vital Signs - 24 hr 08/01/20 08/01/20 08/01/20 00:45 02:05 03:06 Temperature 36.7 C Heart Rate 75 95 70 Respiratory 15 18 16 Rate Blood Pressure 107/54 L 106/56 L 124/69 O2 Saturation 100 100 99 08/01/20 08/01/20 08/01/20 04:20 04:50 05:00 Temperature Heart Rate 102 H 75 89 Respiratory 18 18 18 Rate Blood Pressure 120/64 123/69 123/69 O2 Saturation 100 96 100 08/01/20 08/01/20 08/01/20 05:13 05:46 06:56 Temperature 36.6 C Heart Rate 67 70 71 Respiratory 16 18 16 Rate Blood Pressure 122/61 136/68 H 113/60 O2 Saturation 95 98 99 08/01/20 08/01/20 08/01/20 08:00 10:00 11:30 Temperature 36.2 C L Heart Rate 71 71 65 Respiratory 16 14 14 Rate Blood Pressure 113/60 125/59 L 112/65 O2 Saturation 100 100 99 08/01/20 08/01/20 08/01/20 12:30 14:09 15:00 Temperature Heart Rate 76 59 L 72 Respiratory 14 18 14 Rate Blood Pressure 113/75 105/63 112/65 O2 Saturation 100 100 100 08/01/20 16:13 Temperature 36.8 C Heart Rate 76 Respiratory 16 Rate Blood Pressure 113/67 O2 Saturation 100 Oxygen O2 Source Room air - Labs Labs: Laboratory Tests 07/31/20 07/31/20 08/01/20 22:20 22:20 00:36 WBC 16.2 H RBC 5.32 Hgb 14.7 Hct 44.5 MCV 83.6 MCH 27.6 MCHC 33.0 RDW 13.0 Plt Count 279 MPV 9.7 Neut # (Auto) 13.3 H Lymph # (Auto) 1.6 [place] # (Auto) 1.0 Eos # (Auto) 0.1 Baso # (Auto) 0.1 Absolute Nucleated RBC 0.00 Nucleated RBC % 0.0 Sodium 137 Potassium 4.2 Chloride 103 Carbon Dioxide 25 Anion Gap 9.0 BUN 19 Creatinine 1.0 Estimated GFR (MDRD) 93 Glucose 103 H Lactic Acid Calcium 9.5 Total Bilirubin 1.2 H AST 20 ALT 18 Alkaline Phosphatase 99 Total Protein 8.5 H Albumin 4.8 Globulin 3.7 Albumin/Globulin Ratio 1.3 Lipase 26 Urine Color YELLOW Urine Clarity CLEAR Urine pH 5.0 Ur Specific [place] >=1.030 H Urine Protein 100 H Urine Glucose (UA) NEGATIVE Urine Ketones 15 H Urine Occult Blood MODERATE H Urine Nitrite NEGATIVE Urine Bilirubin NEGATIVE Urine Urobilinogen 0.2 (NORMAL) Ur Leukocyte Esterase NEGATIVE Urine RBC 6-10 H Urine WBC 0-3 Ur Squamous Epith Cells RARE Squamous Urine Bacteria Rare Urine Casts 0-2 Hyaline Casts Ur Microscopic Review INDICATED Urine Culture Comments NOT INDICATED Nasal Adenovirus (PCR) Nasal B. parapertussis DNA (PCR) Nasal Coronavir 229E PCR Nasal Coronavir HKU1 PCR Nasal Coronavir NL63 PCR Nasal Coronavir OC43 PCR Nasal Enterovir/Rhinovir PCR Nasal Influenza B PCR Nasal Influenza A PCR Nasal Parainfluen 1 PCR Nasal Parainfluen 2 PCR Nasal Parainfluen 3 PCR Nasal Parainfluen 4 PCR Nasal RSV (PCR) Nasal B.pertussis DNA PCR Nasal C.pneumoniae (PCR) Bijan Human Metapneumo PCR Nasal M.pneumoniae (PCR) Nasal SARS-CoV-2 (PCR) 08/01/20 08/01/20 02:05 03:50 WBC RBC Hgb Hct MCV MCH MCHC RDW Plt Count MPV Neut # (Auto) Lymph # (Auto) [place] # (Auto) Eos # (Auto) Baso # (Auto) Absolute Nucleated RBC Nucleated RBC % Sodium Potassium Chloride Carbon Dioxide Anion Gap BUN Creatinine Estimated GFR (MDRD) Glucose Lactic Acid 1.1 Calcium Total Bilirubin AST ALT Alkaline Phosphatase Total Protein Albumin Globulin Albumin/Globulin Ratio Lipase Urine Color Urine Clarity Urine pH Ur Specific [place] Urine Protein Urine Glucose (UA) Urine Ketones Urine Occult Blood Urine Nitrite Urine Bilirubin Urine Urobilinogen Ur Leukocyte Esterase Urine RBC Urine WBC Ur Squamous Epith Cells Urine Bacteria Urine Casts Ur Microscopic Review Urine Culture Comments Nasal Adenovirus (PCR) NOT DETECTED Nasal B. parapertussis DNA (PCR) NOT DETECTED Nasal Coronavir 229E PCR NOT DETECTED Nasal Coronavir HKU1 PCR NOT DETECTED Nasal Coronavir NL63 PCR NOT DETECTED Nasal Coronavir OC43 PCR NOT DETECTED Nasal Enterovir/Rhinovir PCR NOT DETECTED Nasal Influenza B PCR NOT DETECTED Nasal Influenza A PCR NOT DETECTED Nasal Parainfluen 1 PCR NOT DETECTED Nasal Parainfluen 2 PCR NOT DETECTED Nasal Parainfluen 3 PCR NOT DETECTED Nasal Parainfluen 4 PCR NOT DETECTED Nasal RSV (PCR) NOT DETECTED Nasal B.pertussis DNA PCR NOT DETECTED Nasal C.pneumoniae (PCR) NOT DETECTED Bijan Human Metapneumo PCR NOT DETECTED Nasal M.pneumoniae (PCR) NOT DETECTED Nasal SARS-CoV-2 (PCR) NOT DETECTED - Rads (name of study) CT A/P with IV contrast Radiology: Prelim report reviewed, See rad report PD MEDICAL DECISION MAKING - ED course Complexity details: reviewed old records, reviewed results, re-evaluated patient, considered differential, d/w patient, d/w family ED course: presentation c/w SBO which is demonstrated on CT. He is in obviously painful distress early in stay but pain was controlled with IV dilaudid; he did require repeat dosing as pain recurred. Ofirmev was given initially after we discussed options for pain control and patient expressed concern that narcotic medications would lead to worsening of the bowel obstruction (decreased motility), but he did not have any relief with this medication. Similarly he had improvement in his nausea with IV zofran but also required repeated dosing as the nausea recurred during his ED stay. He had gradually increasing stool output into his ostomy bag. 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 Pierson at [facility] and patient expresses strong preference for transfer to [place] if inpatient care is needed. Unfortunately no beds available and he is put on a waiting list. Patient eventually agreeable to being admitted to other facilities that would be appropriate for his medical care. [facility] contacted and I discussed the case with Dr. Moulton (hospital receptionist surgery at [facility]). As we were discussing the case, it was realized that there are no beds available at [facility]. Transfer center for [facility] contacted, no beds available. [facility] contacted, no beds available. As patient was exhibiting and reporting gradual but steady improvement in symptoms along with increasing stool output into his ostomy bag, I contacted Dr. Abreu ([facility] hospital receptionist surgery) for consideration of admission to [facility]. He does not feel comfortable with admission to [facility] and recommends transfer. I subsequently was contacted by [facility] transfer center and discussed the case with Dr. Lopez (hospital receptionist surgery [facility]), recommends transfer to [place] to care of patient's supervisor publications production. Beds are still not available at [place], but there are also still no beds available at [facility]. Care of patient turned over to Dr. Quiros at end of my shift as patient continues to await disposition. Departure - Departure Disposition: 02 Transfer Acute Care Hosp Clinical Impression: Abdominal pain, Crohn's disease, Bowel obstruction Condition: Stable Discharge Date/Time: 08/01/20 16:13
[2020-07-31] MEDS ORDERED: ACETAMINOPHEN 1,000 MG/100 ML 100 ML IV STA (23:18)
[2020-07-31] MEDS ORDERED: SODIUM CHLORIDE 0.9% 1,000 ML IV STA (23:18)
[2020-07-31] MEDS ORDERED: ONDANSETRON 4 MG/2 ML VIAL IVP STA (23:18)
[2020-07-31] MEDS ORDERED: IOVERSOL 320 100 ML VIAL IVP ONE (23:23)
[2020-07-31] MEDS ORDERED: HYDROmorphone 1 MG/ML CARPUJECT IVP STA (23:34)
[2020-08-01] MEDS ORDERED: IOVERSOL 320 100 ML VIAL IVP ONE (00:23)
[2020-08-01 00:43] LABS: BILIRUBIN,URINE NEGATIVE (NEGATIVE); GLUCOSE, URINE (UA) NEGATIVE (NEGATIVE); KETONES,URINE (UA) 15 mg/dL (NEGATIVE); LEUKOCYTE ESTERASE, URINE NEGATIVE (NEGATIVE); NITRITE,URINE NEGATIVE (NEGATIVE); OCCULT BLOOD,URINE MODERATE (NEGATIVE); PROTEIN,URINE 100 mg/dL (NEGATIVE); UROBILINOGEN,URINE 0.2 (NORMAL) E.U./dL (NORMAL)
[2020-08-01 00:45] LABS: CLARITY,URINE CLEAR (CLEAR)
[2020-08-01 00:52] LABS: WBC,URINE 0-3 /HPF (0-3)
[2020-08-01 00:54] LABS: BACTERIA,URINE Rare /HPF (None Seen); CASTS, URINE 0-2 Hyaline Casts /LPF; SQUAMOUS EPITHELIAL CELL,UR RARE Squamous (<= Few)
[2020-08-01] MEDS ORDERED: SODIUM CHLORIDE 0.9% 1,000 ML IV STA ×2 (01:23→14:00)
[2020-08-01] MEDS ORDERED: ONDANSETRON 4 MG/2 ML VIAL IVP STA ×2 (02:18→04:25)
[2020-08-01] MEDS ORDERED: HYDROmorphone 1 MG/ML CARPUJECT IVP STA ×2 (02:30→04:25)
[2020-08-01 03:01] LABS: B. PARAPERTUSSIS- RESP PCR PAN NOT DETECTED; B. PERTUSSIS- RESP PCR PANEL NOT DETECTED; C. PNEUMONIAE- RESP PCR PANEL NOT DETECTED; CORONAVIRUS 229E-RESP PCR NOT DETECTED; CORONAVIRUS HKU1-RESP PCR NOT DETECTED; CORONAVIRUS NL63-RESP PCR NOT DETECTED; CORONAVIRUS OC43-RESP PCR NOT DETECTED; HUMAN METAPNEUMOVIRUS NOT DETECTED; INFLUENZA A- RESP PCR PANEL NOT DETECTED; INFLUENZA B - RESP PCR PANEL NOT DETECTED; M. PNEUMONIAE- RESP PCR PANEL NOT DETECTED; PARAINFLUENZA VIRUS 1 NOT DETECTED; PARAINFLUENZA VIRUS 2 NOT DETECTED; PARAINFLUENZA VIRUS 3 NOT DETECTED; PARAINFLUENZA VIRUS 4 NOT DETECTED; RHINOVIRUS/ENTEROVIRUS NOT DETECTED; RSV- RESP PCR PANEL NOT DETECTED; SARS-CoV-2 -RESP PCR PANEL NOT DETECTED
[2020-08-01] MEDS ORDERED: DEXAMETHASONE 10 MG/ML VIAL IVP STA (07:29)
[2020-08-01] MEDS ORDERED: DROPERIDOL 5 MG/2 ML VIAL IVP STA (08:04)
--- NOTE | 2020-08-01 10:37 | CT Report ---
PROCEDURE: Abdomen/Pelvis W INDICATIONS: abd. pain, h/o SBO CONTRAST: IV CONTRAST: Optiray 320 ml: 100 PO CONTRAST: *NO PO CONTRAST TECHNIQUE: After the administration of nonionic contrast, 5 mm thick sections acquired from the diaphragms to th e symphysis. 5 mm thick coronal and sagittal reformats were acquired. For radiation dose reduction, the following was used: automated exposure control, adjustment of mA and/or kV according to patient size. COMPARISON: Prior CT abdomen/pelvis 09/06/2019, 05/05/2019, 01/20/2019.. FINDINGS: Image quality: Excellent. ABDOMEN: Lung bases: Lung bases are clear except for mild dependent atelectasis. Heart size is normal. Solid organs: Liver and spleen are normal in size and enhancement. Gallbladder appears normal Bili ryne system is non dilated. Pancreas enhances normally. No adrenal nodules. Kidneys demonstrate nor mal size and enhancement, without hydronephrosis. Peritoneum and bowel: The colon is largely absent. The rectum remains in place and there is a enteri c staple line, occlusive, at the peritoneal reflection. Small bowel loops demonstrate normal wall thi ckness and caliber superiorly but more inferiorly there is abnormal small bowel dilatation without pn eumatosis or mural thickening. However, there is early fecal transformation of the small bowel conten t within the pelvis. There appears to be a transition point between relative collapse superiorly and dilatation inferiorly adjacent to the ostomy at the right lower quadrant.. No free fluid or air. Nodes and vessels: No retroperitoneal or mesenteric adenopathy by size criteria. Aorta and inferior vena cava are normal in size. Miscellaneous: No ventral hernias. PELVIS: Genitourinary: Bladder wall thickness is normal. Miscellaneous: No inguinal hernias or adenopathy. Small bowel dilatation pattern as discussed above . Subtotal colectomy. Bones: No suspicious bony lesions. No vertebral body compression fractures. IMPRESSION: Abnormal small bowel dilatation with transition point adjacent to the ostomy site right lower quadrant. Postoperative adhesion is the likely cause in this clinical circumstance. Subtotal co lectomy with the rectum remaining in place at and below the level of the peritoneal reflection. Reviewed by: Salty De La Rosa MD on 08/01/2020 9:35 AM DANIELLE Approved by: Salty De La Rosa MD on 08/01/2020 9:35 AM AKHUSSAIN Station ID: [id number]
--- NOTE | 2020-08-01 13:59 | ED Physician Documentation ---
ED Addendum - Addendum Addendum: 08/01/20 13:54On change of shift this morning the patient was comfortable and sleeping so I let him rest. Recheck around 9 AM showed he did have some nausea but no vomiting and was given some Inapsine antiemetic. He did not need any further pain meds at that point. He was resting more comfortable. IV fluids were continued. We did check periodically with [facility] for bed status. Subsequently they did have beds become available and were excepting the patient on transfer. I talked with Dr. Magana who accepted transfer. The patient has not had any further vomiting this morning and so we have withheld NG tube at this point as he clinically was doing well enough. The accepting physician was okay with that.
[2020-08-01 16:13] VITALS: BP 113/67
== END 2020-08-01 16:13 | disposition short-term general hospital (02) ==
LOC: ED 22:01
DX: K56.609 Unspecified intestinal obstruction, unspecified as to partial versus complete obstruction (principal); K50.90 Crohn's disease, unspecified, without complications; Z93.3 Colostomy status; Z20.822 Contact with and (suspected) exposure to COVID-19
CPT/HCPCS: 0202U; 36415; 74177; 80053; 81001; 83605; 83690; 85025; 96365; 96375; 96376; 99284; 99285; J0131; J1170; Q9967; 81003; 87086

== ENCOUNTER 2020-09-10 04:46 | Emergency (ER) | payer OTHER, BC ==
--- NOTE | 2020-09-10 05:16 | ED Physician Documentation ---
PD HPI MALE - Stated complaint Stated Complaint: POST OP, URINATION ISSUES - Chief complaint Chief Complaint: Abd Pain - History obtained from History obtained from: Patient - History of Present Illness Timing - onset: Today Timing - details: Gradual onset Pain level max: 0 Pain level now: 0 Associated symptoms: Unable to urinate Similar symptoms before: No diagnosis - Additional information Additional information: patient c/o decreased urine output during the day. He says he then woke up at 2:30 AM this morning with urge to urinate, but only small urine output. He woke up again around 3:30 AM, again with urge to urinate but only small urine output. He felt this time he had to strain to try to urinate and this resulted in nausea, vomiting. He had exploratory abdominal surgery 08/30 with armas insertion, but armas was removed the following day. He says that since his most recent symptoms at 3:30AM, he feels he no longer has urge to urinate and no longer has the symptoms which caused him to come to ED. Review of Systems Constitutional: denies: Fever, Chills, Sweats Respiratory: reports: Reviewed and negative GI: reports: Nausea (resolved), Vomiting (resolved). denies: Abdominal Pain, Constipation, Diarrhea : denies: Dysuria, Frequency, Unable to Void, Hematuria, Discharge Musculoskeletal: reports: Neck pain. denies: Back pain PD PAST MEDICAL HISTORY - Past Medical History Past Medical History: Yes Cardiovascular: None Respiratory: None Neuro: None Endocrine/Autoimmune: None GI: Crohn's disease : None HEENT: None Psych: None Musculoskeletal: None Derm: None - Past Surgical History Past Surgical History: Yes General: Bowel surgery, Other - Present Medications Home Medications: Ambulatory Orders Medication Instructions Recorded Confirmed Multivitamin [Multivitamins] 1 tab.chew PO DAILY 09/06/19 09/10/20 L.acid/L.casei/B.bif/B.ankit/Fos 2 cap PO DAILY 08/01/20 09/10/20 [Probiotic Blend Capsule] Loratadine [Allergy Relief] 10 mg PO DAILY 08/01/20 09/10/20 HYDROmorphone [Dilaudid] 2 mg PO Q6HR PRN 09/10/20 09/10/20 Tamsulosin HCl [Flomax] 0.4 mg PO DAILY 09/10/20 09/10/20 - Allergies Allergies/Adverse Reactions: Allergies Allergy/AdvReac Type Severity Reaction Status Date / Time No Known Drug Allergies Allergy Verified 09/10/20 05:00 - Social History Does the pt smoke?: No Smoking Status: Never smoker Does the pt drink ETOH?: Yes Does the pt have substance abuse?: No - Immunizations Immunizations are current?: Yes - POLST Patient has POLST: No PD ED PE NORMAL - Vitals Vital signs reviewed: Yes - General General: Alert and oriented X 3, No acute distress, Well developed/nourished - Cardiac Cardiac: RRR, No murmur - Respiratory Respiratory: No respiratory distress, Clear bilaterally - Abdomen Abdomen: Normal bowel sounds, Soft, Non tender, Non distended, Other (midline suprapubic steristrips in place with no wounds, erythema, or discharge. No suprapubic fullness nor TTP) Results - Vitals Vitals: Vital Signs - 24 hr 09/10/20 09/10/20 09/10/20 04:58 05:44 06:50 Temperature 36.8 C 37.3 C Heart Rate 93 70 Respiratory 17 16 16 Rate Blood Pressure 133/66 H 109/64 O2 Saturation 100 99 Oxygen O2 Source Room air - Labs Labs: Laboratory Tests 09/10/20 05:48 Urine Color YELLOW Urine Clarity CLEAR Urine pH 5.5 Ur Specific [place] >=1.030 H Urine Protein 30 H Urine Glucose (UA) NEGATIVE Urine Ketones NEGATIVE Urine Occult Blood MODERATE H Urine Nitrite NEGATIVE Urine Bilirubin NEGATIVE Urine Urobilinogen 0.2 (NORMAL) Ur Leukocyte Esterase NEGATIVE Urine RBC 6-10 H Urine WBC 0-3 Ur Squamous Epith Cells RARE Squamous Urine Bacteria Rare Urine Casts 3-5 Course Granular Urine Mucus Moderate Strands Ur Microscopic Review INDICATED Urine Culture Comments NOT INDICATED PD MEDICAL DECISION MAKING - ED course Complexity details: reviewed results, re-evaluated patient, considered differential, d/w patient ED course: NAD, no suprapubic fullness nor tenderness. He no longer has urge to urinate. Bladder scan is under 150 cc. He is able to provide urine sample and this only demonstrate mild hematuria. In discussing this result, patient indicates to me that he has had mild hematuria on testing for nearly 2 years for which he has seen specialists and no concerning etiology found despite testing. Departure - Departure Disposition: 01 Home, Self Care Clinical Impression: Dysuria Condition: Good Instructions: ED Dysuria Uncertain Cause, ED Hematuria Follow-Up: Sabina Pennington ARNP [Primary Care Provider] - Discharge Date/Time: 09/10/20 06:57
[2020-09-10 06:02] LABS: BILIRUBIN,URINE NEGATIVE (NEGATIVE); GLUCOSE, URINE (UA) NEGATIVE (NEGATIVE); KETONES,URINE (UA) NEGATIVE (NEGATIVE); LEUKOCYTE ESTERASE, URINE NEGATIVE (NEGATIVE); NITRITE,URINE NEGATIVE (NEGATIVE); OCCULT BLOOD,URINE MODERATE (NEGATIVE); PH,URINE 5.5 PH (5.0-7.5); PROTEIN,URINE 30 mg/dL (NEGATIVE); UROBILINOGEN,URINE 0.2 (NORMAL) E.U./dL (NORMAL)
[2020-09-10 06:13] LABS: CLARITY,URINE CLEAR (CLEAR); WBC,URINE 0-3 /HPF (0-3)
[2020-09-10 06:14] LABS: BACTERIA,URINE Rare /HPF (None Seen); CASTS, URINE 3-5 Course Granular /LPF; MUCUS,URINE Moderate Strands; SQUAMOUS EPITHELIAL CELL,UR RARE Squamous (<= Few)
[2020-09-10 06:51] VITALS: BP 109/64
== END 2020-09-10 06:57 | disposition home or self-care (01) ==
LOC: ED 04:46
DX: R30.0 Dysuria (principal); R31.9 Hematuria, unspecified; Z98.890 Other specified postprocedural states
CPT/HCPCS: 81001; 81003; 87086; 99283

== ENCOUNTER 2021-03-23 08:15 | Inpatient (IN) | payer OTHER, BC ==
[2021-03-23 09:46] LABS: BASOPHILS % (AUTO) 0.2 %; EOSINOPHILS % (AUTO) 0.2 %; HCT - HEMATOCRIT 46.3 % (42.0-52.0); HGB - HEMOGLOBIN 15.4 g/dL (14.0-18.0); LYMPHOCYTES # (AUTO) 1.3 10^3/uL (1.5-3.5); LYMPHOCYTES % (AUTO) 10.6 %; MEAN CORPUSCULAR HEMOGLOBIN 27.5 pg (27.0-31.0); MEAN CORPUSCULAR HGB CONC 33.3 g/dL (32.0-36.0); MEAN CORPUSCULAR VOLUME 82.7 fL (80.0-94.0); MEAN PLATELET VOLUME 10.1 fL (7.4-11.4); MONOCYTES # (AUTO) 0.7 10^3/uL (0.0-1.0); MONOCYTES % (AUTO) 5.8 %; NEUTROPHILS # (AUTO) 10.2 10^3/uL (1.5-6.6); PLT - PLATELET COUNT 307 10^3/uL (130-450); RED CELL DISTRIBUTION WIDTH 13.2 % (12.0-15.0); WHITE BLOOD COUNT 12.3 x10^3/uL (4.8-10.8)
[2021-03-23 09:55] LABS: ALBUMIN 4.7 g/dL (3.2-5.5); ALBUMIN/GLOBULIN RATIO 1.2 (1.0-2.2); BILIRUBIN,TOTAL 1.6 mg/dL (0.2-1.0); CALCIUM 9.4 mg/dL (8.5-10.3); POTASSIUM 4.2 mmol/L (3.5-5.0); TOTAL PROTEIN 8.6 g/dL (6.7-8.2)
[2021-03-23] MEDS ORDERED: HYDROmorphone 1 MG/ML CARPUJECT IVP STA ×2 (10:34→13:22)
[2021-03-23] MEDS ORDERED: iohexoL-300 100 ML VIAL ONE (10:34)
[2021-03-23] MEDS ORDERED: ONDANSETRON 4 MG/2 ML VIAL IVP STA ×2 (10:34→10:36)
--- NOTE | 2021-03-23 10:35 | ED Physician Documentation ---
PD HPI ABD PAIN - Stated complaint Stated Complaint: ABD PX N/V - Chief complaint Chief Complaint: Abd Pain - History obtained from History obtained from: Patient, Family - Additional information Additional information: Patient comes to the emergency department with chief complaint of abdominal pain and no colostomy output for the last 24 hours. Patient states he has also been nauseated and vomiting, Clear, bile-like fluid. The patient does state that he has not eaten as much for the last 24 hours because he Is concerned his ostomy is blocked and that every time he feels the cramping, pain and pressure sensation of his bowels can tracting against the blockage, it makes him nauseated and vomiting again. Patient denies fevers or chills. He has the ostomy because of complicated Crohn's with bowel perforation and ultimately, colectomy. He has had this current ostomy since 2018. He states he is otherwise fairly healthy. No other complaints at this time. Uvaldo does note that the patient's insurance changed at the beginning of the month and his normal infusion that he receives for his Crohn's has been delayed in getting to him, so he has not had his infusion all month. She is concerned that this may have precipitated inflammation, which has caused obstruction of the colostomy. Review of Systems Ten Systems: 10 systems reviewed and negative Constitutional: reports: Reviewed and negative Eyes: reports: Reviewed and negative Ears: reports: Reviewed and negative Nose: reports: Reviewed and negative Throat: reports: Reviewed and negative Cardiac: reports: Reviewed and negative Respiratory: reports: Reviewed and negative GI: reports: Abdominal Pain, Nausea, Vomiting : reports: Reviewed and negative Skin: reports: Reviewed and negative Musculoskeletal: reports: Reviewed and negative Neurologic: reports: Reviewed and negative Psychiatric: reports: Reviewed and negative Endocrine: reports: Reviewed and negative Immunocompromised: reports: Reviewed and negative PD PAST MEDICAL HISTORY - Past Medical History Cardiovascular: None Respiratory: None Neuro: None Endocrine/Autoimmune: None GI: Crohn's disease : None HEENT: None Psych: None Musculoskeletal: None Derm: None - Past Surgical History Past Surgical History: Yes General: Bowel surgery, Other - Present Medications Home Medications: Ambulatory Orders Medication Instructions Recorded Confirmed Multivitamin [Multivitamins] 1 tab.chew PO DAILY 09/06/19 03/23/21 HYDROmorphone [Dilaudid] 2 mg PO Q6HR PRN 09/10/20 03/23/21 Vedolizumab [Entyvio] 300 mg IV 03/23/21 - Allergies Allergies/Adverse Reactions: Allergies Allergy/AdvReac Type Severity Reaction Status Date / Time amoxicillin [From Augmentin] Allergy Hives Verified 03/23/21 08:57 clavulanic acid Allergy Hives Verified 03/23/21 08:57 [From Augmentin] - Social History Does the pt smoke?: No Smoking Status: Never smoker Does the pt drink ETOH?: Yes Does the pt have substance abuse?: No - Immunizations Immunizations are current?: Yes - POLST Patient has POLST: No PD ED PE NORMAL - Vitals Vital signs reviewed: Yes - General General: Alert and oriented X 3, No acute distress, Well developed/nourished, Other (Patient appears uncomfortable, but is not in obvious distress.) - HEENT HEENT: Atraumatic, PERRL, EOMI, Moist mucous membranes - Neck Neck: Supple, no meningeal sign - Cardiac Cardiac: RRR, No murmur - Respiratory Respiratory: No respiratory distress, Clear bilaterally - Abdomen Abdomen: Soft, Non distended, Other (Moderate diffuse tenderness throughout abdomen. Colostomy bag clean dry and intact and in good placement. No fluid in colostomy bag.) - Back Back: No CVA TTP - Derm Derm: Normal color, Warm and dry, No rash - Extremities Extremities: No deformity, No edema - Neuro Neuro: Alert and oriented X 3, qa manager 2-12 intact, Normal speech, Other (Grossly intact) - Psych Psych: Normal mood, Normal affect Results - Vitals Vitals: Vital Signs - 24 hr 03/23/21 03/23/21 08:29 11:17 Temperature 36.5 C Heart Rate 104 H 90 Respiratory 16 22 Rate Blood Pressure 109/72 113/83 H O2 Saturation 100 100 Oxygen O2 Source Room air - Labs Labs: Laboratory Tests 03/23/21 03/23/21 03/23/21 09:15 09:15 12:15 WBC 12.3 H RBC 5.60 Hgb 15.4 Hct 46.3 MCV 82.7 MCH 27.5 MCHC 33.3 RDW 13.2 Plt Count 307 MPV 10.1 Neut # (Auto) 10.2 H Lymph # (Auto) 1.3 L [place] # (Auto) 0.7 Eos # (Auto) 0.0 Baso # (Auto) 0.0 Absolute Nucleated RBC 0.00 Nucleated RBC % 0.0 Sodium 136 Potassium 4.2 Chloride 101 Carbon Dioxide 23 Anion Gap 12.0 BUN 17 Creatinine 1.0 Estimated GFR (MDRD) 93 Glucose 106 H Calcium 9.4 Total Bilirubin 1.6 H AST 17 ALT 16 Alkaline Phosphatase 87 Total Protein 8.6 H Albumin 4.7 Globulin 3.9 Albumin/Globulin Ratio 1.2 Lipase 26 Urine Color YELLOW Urine Clarity CLEAR Urine pH 5.5 Ur Specific [place] >=1.030 H Urine Protein 100 H Urine Glucose (UA) NEGATIVE Urine Ketones 40 H Urine Occult Blood MODERATE H Urine Nitrite NEGATIVE Urine Bilirubin NEGATIVE Urine Urobilinogen 0.2 (NORMAL) Ur Leukocyte Esterase NEGATIVE Urine RBC 0-5 Urine WBC 0-3 Ur Squamous Epith Cells RARE Squamous Urine Bacteria None Seen Urine Casts 0-2 Cellular Casts Urine Mucus Few Strands Ur Microscopic Review INDICATED Urine Culture Comments NOT INDICATED - Rads (name of study) CT abdomen pelvis Radiology: Final report received, EMP read indepedently, See rad report (Obstruction at the ostomy site) PD MEDICAL DECISION MAKING - ED course Complexity details: reviewed results, re-evaluated patient, considered differential, d/w patient, d/w family ED course: Patient was treated symptomatically in the emergency department and worked up with labs and CT scan of the abdomen and pelvis, Which showed moderate to severe obstruction in the ostomy. I spoke with Dr. Garrison about this, but he stated that would not likely be a surgical fix at this point in time, and recommended medicine admission with administration of steroids. I discussed this with the patient. I was given a dose of Decadron here in the emergency department, as well as had NG tube placed. I spoke with Dr. Koch, who agreed to admit the patient to her service. Departure - Departure Disposition: [facility] DC/Xfer Clinical Impression: Bowel obstruction Qualifiers: Intestinal obstruction type: unspecified Intestinal obstruction extent: complete Qualified Code(s): K56.601 - Complete intestinal obstruction, unspecified as to cause Condition: Serious Discharge Date/Time: 03/23/21 14:00
[2021-03-23] MEDS ORDERED: SODIUM CHLORIDE 0.9% 1,000 ML IV STA (10:36)
--- NOTE | 2021-03-23 11:15 | CT Report ---
PROCEDURE: Abdomen/Pelvis W INDICATIONS: ostomy obstruction, vomiting, pain CONTRAST: IV CONTRAST: Isovue 300 ml: 100 PO CONTRAST: *NO PO CONTRAST TECHNIQUE: After the administration of IV contrast, 5 mm thick sections acquired from the diaphragms to the symp hysis. 5 mm thick coronal and sagittal reformats were acquired. For radiation dose reduction, the f ollowing was used: automated exposure control, adjustment of mA and/or kV according to patient size. COMPARISON: CT abdomen pelvis 08/01/2020 FINDINGS: Image quality: Excellent. ABDOMEN: Lung bases: Lung bases are clear. Heart size is normal. Solid organs: Liver and spleen are normal in size and enhancement. Gallbladder is unremarkable. Bi liary system is non dilated. Pancreas enhances normally. No adrenal nodules. Kidneys demonstrate n ormal size and enhancement, without hydronephrosis. Peritoneum and bowel: Right lower quadrant ostomy is present. There is a near complete right total co lectomy. Fluid-filled loops of bowel are dilated with greatest AP dimension measuring 3.8 cm. Dilated loops appear to be proximal to the ostomy. Nodes and vessels: No retroperitoneal or mesenteric adenopathy by size criteria. Aorta and inferior vena cava are normal in size. Miscellaneous: No ventral hernias. PELVIS: Genitourinary: Bladder wall thickness is normal. Miscellaneous: No inguinal hernias or adenopathy. Bones: No suspicious bony lesions. No vertebral body compression fractures. IMPRESSION: Near complete colectomy with right lower quadrant ostomy. There are dilated fluid-filled loops of bow el proximal to the ostomy site most consistent with moderate to severe obstruction. Reviewed by: Chelsea Chávez MD on 03/23/2021 11:14 AM PST Approved by: Chelsea Chávez MD on 03/23/2021 11:14 AM PST Station ID: [id number]
[2021-03-23] MEDS ORDERED: iohexoL-300 100 ML VIAL IVP ONE (11:30)
[2021-03-23] MEDS ORDERED: DEXAMETHASONE 10 MG/ML VIAL IV STA (11:43)
[2021-03-23 12:46] LABS: BILIRUBIN,URINE NEGATIVE (NEGATIVE); GLUCOSE, URINE (UA) NEGATIVE (NEGATIVE); KETONES,URINE (UA) 40 mg/dL (NEGATIVE); LEUKOCYTE ESTERASE, URINE NEGATIVE (NEGATIVE); NITRITE,URINE NEGATIVE (NEGATIVE); OCCULT BLOOD,URINE MODERATE (NEGATIVE); PH,URINE 5.5 PH (5.0-7.5); PROTEIN,URINE 100 mg/dL (NEGATIVE); UROBILINOGEN,URINE 0.2 (NORMAL) E.U./dL (NORMAL)
[2021-03-23] MEDS ORDERED: LIDOCAINE VISCOUS 2% 15 ML UDC MM STA (12:47)
[2021-03-23] MEDS ORDERED: ACETAMINOPHEN 325 MG TABLET PO PRN (12:49)
[2021-03-23] MEDS ORDERED: PROCHLORPERAZINE 10 MG/2 ML VIAL IVP PRN (12:49)
--- NOTE | 2021-03-23 12:57 | HISTORY & PHYSICAL EXAMINATION ---
Chief Complaint - Chief Complaint Chief Complaint: abdominal pain History of Present Illness - Admitted From Admitted From:: medical floor - History Obtained From Records Reviewed: [facility], ER notes History obtained from: pt Exam Limitations: no - History of Present Illness HPI Comment/Other: This is a 25-years old male with medical history Significantly of Multiple times of small bowel obstruction in the past, Crohn's disease since he was at middle school, then Crohn's complicated with bowel perforation and ultimately colectomy since 2018. Patient reported he usually had injection of Entyvio every 6-week, But at this time because insurance issue, his injection already delayed more than 1 week. He is beginning to have abdominal pain on yesterday morning. He recognize it it is a similar pain as before his small bowel obstruction. He tried to reduce eating of food for hoping to resolve it by its self, but His symptoms was not resolved, he continued to have nausea and some vomiting, and abdominal sharp pain. Patient denies hematemesis, chest pain. his pain mainly located at middle and lower quadrant around his ostomy bag area. Because the patient frequently has small bowel obstruction, patient reported his surgeon Dr. María Mejía did exploit surgery on August 2020 In [facility] but did not find significant cause. CT of the abdomen show moderate to severe obstruction in the ostomy. GI surgeon was consulted. Discussed the care goal with patient, patient hope to have full code History - Past Medical History Cardiovascular: reports: None Respiratory: reports: None Neuro: reports: None Endocrine/Autoimmune: reports: None GI: reports: Crohn's disease : reports: None HEENT: reports: None Psych: reports: None Musculoskeletal: reports: None Derm: reports: None MRSA Hx?: No - Past Surgical History General: reports: Bowel surgery, Other - Family & Social History Family History Comment/Other: Report both his parents is living and healthy but his grandpa had also ulcer colitis. Social History Notes: Patient denies any history of cigarette smoking, alcohol abuse or drug issue. - POLST Patient has POLST: No Meds/Allgy - Home Medications Home Medications: Ambulatory Orders Medication Instructions Recorded Confirmed Multivitamin [Multivitamins] 1 tab.chew PO DAILY 09/06/19 03/23/21 HYDROmorphone [Dilaudid] 2 mg PO Q6HR PRN 09/10/20 03/23/21 Vedolizumab [Entyvio] 300 mg IV 03/23/21 - Allergies Allergies/Adverse Reactions: Allergies Allergy/AdvReac Type Severity Reaction Status Date / Time amoxicillin [From Augmentin] Allergy Hives Verified 03/23/21 08:57 clavulanic acid Allergy Hives Verified 03/23/21 08:57 [From Augmentin] Review of Systems - Constitutional Constitutional: denies: Fever, Chills - Cardiovascular Cariovascular: denies: Palpitations, Chest pain, Lightheadedness, Syncope, Exertional dyspnea, Decr. exercise tolerance - Respiratory Respiratory: denies: Cough, Hemoptysis, SOB at rest, SOB with exertion - Gastrointestinal Gastrointestinal: reports: Abdominal pain, Nausea, Vomiting, Bile emesis. denies: Sg blood emesis, Coffee grounds emesis - Neurological Neurological: denies: Focal weakness, Headache, Dizziness, Seizures, Slurred speech - Psychiatric Psychiatric: denies: Depression Exam - Vital Signs Vital Signs: Vital Signs x48h Temp Pulse Resp BP Pulse Ox 03/23/21 11:17 90 22 113/83 H 100 03/23/21 08:29 36.5 C 104 H 16 109/72 100 - Physical Exam General Appearance: positive: Alert, Mild distress. negative: Lethargic Eyes Bilateral: positive: Normal inspection, No lid inflammation ENT: positive: ENT inspection nml, No signs of dehydration. negative: Purulent nasal drainage Neck: positive: Nml inspection, Trachea midline. negative: Tracheal deviation Respiratory: positive: Chest non-tender, No respiratory distress, Breath sounds nml. negative: Wheezes Cardiovascular: positive: Regular rate & rhythm, No murmur. negative: Tachycardia, Bradycardia, Systolic murmur Peripheral Pulses: positive: 2+ Abdomen: positive: Non-tender, Nml bowel sounds, No distention. negative: Tenderness Back: positive: Nml inspection Skin: positive: Color nml, Warm, Dry. negative: Cyanosis Extremities: positive: Non-tender, Full ROM, Nml appearance Neurologic/Psychiatric: positive: Oriented x3, Motor nml, Sensation nml, Mood/affect nml. negative: Weakness, Sensory loss, Facial droop, Slurred/abnml speech, Depressed mood/affect Sepsis Event Note (H) - Evaluation Current Stage of Sepsis: Ruled out Conclusion/Plan - Problem List (1) Bowel obstruction Conclusion/Plan: Patient reported abdominal pain and cramping, nausea and vomiting, CT show moderate to severe obstruction around ostomy bag area. Surgeon was consulted. Plan: NPO, IV fluids, pain control, NG tube, encourage safely patient walk, Antiemesis as needed, consulted with surgeon Qualifiers: Intestinal obstruction type: unspecified Intestinal obstruction extent: complete Qualified Code(s): K56.601 - Complete intestinal obstruction, unspecified as to cause (2) Crohn's disease Conclusion/Plan: Patient has history of Crohn's disease. pt Already had more than 1 week of his delay of home medication Entyvio. pt complain of abdominal pain and cramping. Per GI surgeon's recommendation, ER already had Dcatron for pt, we will start steroid solu-metro for pt now. Continue pain control, Patient may follow-up with his GI as outpatient. Qualifiers: Gastrointestinal tract location: small and large intestine Digestive disease complication type: with intestinal obstruction Qualified Code(s): K50.812 - Crohn's disease of both small and large intestine with intestinal obstruction (3) Abdominal pain Conclusion/Plan: Patient's abdominal pain is likely caused by patient small bowel obstruction and possible Crohn disease. Pain control, continue treat underline medical issue as the above. Qualifiers: Abdominal location: generalized Qualified Code(s): R10.84 - Generalized abdominal pain - Lab Results Fish Bones: 03/23/21 09:15 03/23/21 09:15 Core Measures - Anticipated LOS I expect patient to be DC'd or transferred within 96 hours.: Yes - DVT/VTE - Prophylaxis VTE/DVT Device ordered at admit?: Yes VTE/DVT Prophylaxis med ordered at admit?: Yes
[2021-03-23 12:58] LABS: CLARITY,URINE CLEAR (CLEAR)
[2021-03-23 12:59] LABS: BACTERIA,URINE None Seen /HPF (None Seen); CASTS, URINE 0-2 Cellular Casts /LPF; MUCUS,URINE Few Strands; RBC,URINE 0-5 /HPF (0-5); SQUAMOUS EPITHELIAL CELL,UR RARE Squamous (<= Few); WBC,URINE 0-3 /HPF (0-3)
[2021-03-23] MEDS ORDERED: PROMETHAZINE INJ 25 MG in SODIUM CHLORIDE 0.9% 50 ML IV STA (13:22)
[2021-03-23] MEDS: D5.45NS W/20 MEQ KCL 1,000 ML IV SCH ×2 (13:49→23:56)
[2021-03-23] MEDS ORDERED: methylPREDNISolone SUCCINATE 40 MG/ML VIAL IVP SCH (14:00)
[2021-03-23] MEDS ORDERED: PHENOL THROAT SPRAY 177 ML MM PRN (14:57)
[2021-03-23 14:58] LABS: B. PARAPERTUSSIS- RESP PCR PAN NOT DETECTED; B. PERTUSSIS- RESP PCR PANEL NOT DETECTED; C. PNEUMONIAE- RESP PCR PANEL NOT DETECTED; CORONAVIRUS 229E-RESP PCR NOT DETECTED; CORONAVIRUS HKU1-RESP PCR NOT DETECTED; CORONAVIRUS NL63-RESP PCR NOT DETECTED; CORONAVIRUS OC43-RESP PCR NOT DETECTED; HUMAN METAPNEUMOVIRUS NOT DETECTED; INFLUENZA A- RESP PCR PANEL NOT DETECTED; INFLUENZA B - RESP PCR PANEL NOT DETECTED; M. PNEUMONIAE- RESP PCR PANEL NOT DETECTED; PARAINFLUENZA VIRUS 1 NOT DETECTED; PARAINFLUENZA VIRUS 2 NOT DETECTED; PARAINFLUENZA VIRUS 3 NOT DETECTED; PARAINFLUENZA VIRUS 4 NOT DETECTED; RHINOVIRUS/ENTEROVIRUS NOT DETECTED; RSV- RESP PCR PANEL NOT DETECTED; SARS-CoV-2 -RESP PCR PANEL NOT DETECTED
--- NOTE | 2021-03-23 16:04 | XRAY Report ---
PROCEDURE: No-Charge 1V Abdomen INDICATIONS: NG TUBE PLACEMENT TECHNIQUE: 1 view of the abdomen were acquired. COMPARISON: CT abdomen 03/23/2019 FINDINGS: Surgical changes and devices: Linear density is noted overlying the distal esophagus, approximately 4 cm from the gastroesophageal junction. This is presumed to be the nasogastric tube. Bowel: No pneumoperitoneum. The bowel gas pattern is normal. Soft tissues: No masses; visualized solid organ contours appear normal in size. No suspicious abdom inal calcifications. Contrast is noted within the bladder from recent contrast administration. Bones: No suspicious bony abnormalities. IMPRESSION: Presumed nasogastric tube placement as above. Recommend forward advancement of at least 12 cm. The above findings were discussed with Dr. Alyssa Govea on 12/21/2021 at 4:03 PM. Reviewed by: Chelsea Chávez MD on 03/23/2021 4:02 PM PST Approved by: Chelsea Chávez MD on 03/23/2021 4:02 PM PST Station ID: [id number]
[2021-03-23] MEDS: HYDROmorphone 0.5 MG/0.5 ML SYRINGE IVP PRN ×4 (16:27→23:56)
[2021-03-23] MEDS: SODIUM CHLORIDE FLUSH 0.9% 10 ML SYRINGE IVP SCH ×2 (17:29→23:56)
--- NOTE | 2021-03-23 17:31 | XRAY Report ---
PROCEDURE: No-Charge 1V Abdomen INDICATIONS: NG NOT COME OUT FLUID, FORWARD IF CORRECT (MARKER ARTIFACT STUCK TO PT) TECHNIQUE: 1 view of the abdomen were acquired. COMPARISON: 03/23/2009 abdominal radiograph FINDINGS: Enteric tube terminates in the stomach with both the distal tip and sentinel hole in the gastric card ia and fundal region. Dilated loops of bowel were demonstrated. IMPRESSION: Enteric tube appears to be in appropriate position. Reviewed by: Parth Delgado MD on 03/23/2021 5:30 PM PST Approved by: Parth Delgado MD on 03/23/2021 5:30 PM PST Station ID: [id number]
[2021-03-23] MEDS: methylPREDNISolone SUCCINATE 40 MG/ML VIAL IVP SCH (22:18)
[2021-03-24] MEDS: ONDANSETRON 4 MG/2 ML VIAL IVP PRN ×2 (00:07→12:54)
[2021-03-24] MEDS: SODIUM CHLORIDE FLUSH 0.9% 10 ML SYRINGE IVP PRN ×2 (03:40→23:59)
[2021-03-24] MEDS: HYDROmorphone 0.5 MG/0.5 ML SYRINGE IVP PRN ×7 (03:40→23:59)
[2021-03-24] MEDS: methylPREDNISolone SUCCINATE 40 MG/ML VIAL IVP SCH ×3 (06:04→21:30)
[2021-03-24 06:09] LABS: BASOPHILS % (AUTO) 0.1 %; HCT - HEMATOCRIT 37.7 % (42.0-52.0); HGB - HEMOGLOBIN 12.5 g/dL (14.0-18.0); LYMPHOCYTES # (AUTO) 1.2 10^3/uL (1.5-3.5); LYMPHOCYTES % (AUTO) 11.2 %; MEAN CORPUSCULAR HEMOGLOBIN 27.3 pg (27.0-31.0); MEAN CORPUSCULAR HGB CONC 33.2 g/dL (32.0-36.0); MEAN CORPUSCULAR VOLUME 82.3 fL (80.0-94.0); MEAN PLATELET VOLUME 10.4 fL (7.4-11.4); MONOCYTES # (AUTO) 0.5 10^3/uL (0.0-1.0); MONOCYTES % (AUTO) 5.2 %; NEUTROPHILS # (AUTO) 8.6 10^3/uL (1.5-6.6); NEUTROPHILS % (AUTO) 83.1 %; PLT - PLATELET COUNT 257 10^3/uL (130-450); RED BLOOD COUNT 4.58 10^6/uL (4.70-6.10); RED CELL DISTRIBUTION WIDTH 13.2 % (12.0-15.0); WHITE BLOOD COUNT 10.3 x10^3/uL (4.8-10.8)
[2021-03-24 06:16] LABS: CALCIUM 8.7 mg/dL (8.5-10.3); CREATININE 0.9 mg/dL (0.6-1.2); POTASSIUM 4.2 mmol/L (3.5-5.0)
[2021-03-24] MEDS: DEXTROSE 5%-0.9% NACL 1,000 ML IV SCH ×2 (07:44→17:32)
[2021-03-24] MEDS: SODIUM CHLORIDE FLUSH 0.9% 10 ML SYRINGE IVP SCH ×3 (07:45→23:36)
[2021-03-24] MEDS: ENOXAPARIN 40 MG/0.4 ML SYRINGE SUBQ SCH (10:59)
--- NOTE | 2021-03-24 11:23 | CONSULTATION NOTE ---
Referring Provider Name of Referring Provider:: Darlene Lowe Consult Date: 03/24/21 Chief Complaint - Chief Complaint Chief Complaint: Abdominal pain with no ostomy output History of Present Illness - Admitted From Admitted From:: ED - History Obtained From Records Reviewed: Provider's notes History obtained from: Patient and providers Exam Limitations: None - History of Present Illness HPI Comment/Other: Very pleasant and unfortunate 25-year-old gentleman. He has been dealing with fistulizing Crohn's since middle school.He is generally cared for at [facility]. In 2018 after a perforation he had a colectomy and has an essentially permanent ostomy. Beginning yesterday afternoon he had increasing abdominal pain and noticed a decrease in ostomy output. This is his fourth obstruction since his colectomy. He did have exploratory surgery last year to look for mechanical causes that can be corrected and none were found. He usually takes Entyvio every 6 weeks but he has missed his infusion by about a week due to some logistical issues. History - Past Medical History Cardiovascular: reports: None Respiratory: reports: None Neuro: reports: None Endocrine/Autoimmune: reports: None GI: reports: Crohn's disease : reports: None HEENT: reports: None Psych: reports: None Musculoskeletal: reports: None Derm: reports: None MRSA Hx?: No - Past Surgical History General: reports: Bowel surgery, Other - Family & Social History Family History Comment/Other: Report both his parents is living and healthy but his grandpa had also ulcer colitis. Social History Notes: Patient denies any history of cigarette smoking, alcohol abuse or drug issue. - POLST Patient has POLST: No Meds/Allgy - Home Medications Home Medications: Ambulatory Orders Medication Instructions Recorded Confirmed Multivitamin [Multivitamins] 1 tab.chew PO DAILY 09/06/19 03/23/21 HYDROmorphone [Dilaudid] 2 mg PO Q6HR PRN 09/10/20 03/23/21 Vedolizumab [Entyvio] 300 mg IV 03/23/21 - Allergies Allergies/Adverse Reactions: Allergies Allergy/AdvReac Type Severity Reaction Status Date / Time amoxicillin [From Augmentin] Allergy Hives Verified 03/23/21 08:57 clavulanic acid Allergy Hives Verified 03/23/21 08:57 [From Augmentin] Review of Systems - Constitutional Constitutional: reports: Fatigue, Malaise, Weakness, Poor appetite - Gastrointestinal Gastrointestinal: reports: Abdominal pain, Nausea Exam - Vital Signs Reviewed Vital Signs: Yes Vital Signs: Vital Signs x48h Temp Pulse Resp BP Pulse Ox 03/24/21 07:50 37 C 70 16 115/62 98 - Physical Exam General Appearance: positive: Alert, Mild distress Eyes Bilateral: positive: Normal inspection, PERRL, EOMI Respiratory: positive: No respiratory distress, Breath sounds nml Cardiovascular: positive: Regular rate & rhythm Peripheral Pulses: positive: 2+ Abdomen: positive: No distention, Tenderness, Guarding. negative: Rebound Conclusion and Plan - Lab Results Laboratory Results 03/24/21 05:28: Sodium 134 L, Potassium 4.2, Chloride 102, Carbon Dioxide 24, Anion Gap 8.0, BUN 18, Creatinine 0.9, Estimated GFR (MDRD) 105, Glucose 160 H, Calcium 8.7 03/24/21 05:28: WBC 10.3, RBC 4.58 L, Hgb 12.5 L, Hct 37.7 L, MCV 82.3, MCH 27.3, MCHC 33.2, RDW 13.2, Plt Count 257, MPV 10.4, Neut # (Auto) 8.6 H, Lymph # (Auto) 1.2 L, [place] # (Auto) 0.5, Eos # (Auto) 0.0, Baso # (Auto) 0.0, Absolute Nucleated RBC 0.00, Nucleated RBC % 0.0 03/23/21 13:50: Nasal Adenovirus (PCR) NOT DETECTED, Nasal B. parapertussis DNA (PCR) NOT DETECTED, Nasal Coronavir 229E PCR NOT DETECTED, Nasal Coronavir HKU1 PCR NOT DETECTED, Nasal Coronavir NL63 PCR NOT DETECTED, Nasal Coronavir OC43 PCR NOT DETECTED, Nasal Enterovir/Rhinovir PCR NOT DETECTED, Nasal Influenza B PCR NOT DETECTED, Nasal Influenza A PCR NOT DETECTED, Nasal Parainfluen 1 PCR NOT DETECTED, Nasal Parainfluen 2 PCR NOT DETECTED, Nasal Parainfluen 3 PCR NOT DETECTED, Nasal Parainfluen 4 PCR NOT DETECTED, Nasal RSV (PCR) NOT DETECTED, Nasal B.pertussis DNA PCR NOT DETECTED, Nasal C.pneumoniae (PCR) NOT DETECTED, [place] Human Metapneumo PCR NOT DETECTED, Nasal M.pneumoniae (PCR) NOT DETECTED, Nasal SARS-CoV-2 (PCR) NOT DETECTED 03/23/21 12:15: Urine Color YELLOW, Urine Clarity CLEAR, Urine pH 5.5, Ur Specific [place] >=1.030 H, Urine Protein 100 H, Urine Glucose (UA) NEGATIVE, Urine Ketones 40 H, Urine Occult Blood MODERATE H, Urine Nitrite NEGATIVE, Urine Bilirubin NEGATIVE, Urine Urobilinogen 0.2 (NORMAL), Ur Leukocyte Esterase NEGATIVE, Urine RBC 0-5, Urine WBC 0-3, Ur Squamous Epith Cells RARE Squamous, Urine Bacteria None Seen, Urine Casts 0-2 Cellular Casts, Urine Mucus Few Strands, Ur Microscopic Review INDICATED, Urine Culture Comments NOT INDICATED 03/23/21 09:15: Sodium 136, Potassium 4.2, Chloride 101, Carbon Dioxide 23, Anion Gap 12.0, BUN 17, Creatinine 1.0, Estimated GFR (MDRD) 93, Glucose 106 H, Calcium 9.4, Total Bilirubin 1.6 H, AST 17, ALT 16, Alkaline Phosphatase 87, Total Protein 8.6 H, Albumin 4.7, Globulin 3.9, Albumin/Globulin Ratio 1.2, Lipase 26 03/23/21 09:15: WBC 12.3 H, RBC 5.60, Hgb 15.4, Hct 46.3, MCV 82.7, MCH 27.5, MCHC 33.3, RDW 13.2, Plt Count 307, MPV 10.1, Neut # (Auto) 10.2 H, Lymph # (Auto) 1.3 L, [place]ard # (Auto) 0.7, Eos # (Auto) 0.0, Baso # (Auto) 0.0, Absolute Nucleated RBC 0.00, Nucleated RBC % 0.0 - Diagnosis Diagnosis: Small bowel obstruction secondary to Crohn's exacerbation. - Plan Plan: I think her best course of action will be to obtain his Entyvio infusion for him by what ever means necessary it is much more likely to help resolve this then steroids. If this does not resolve, he will need transfer back to [facility]. He is not a candidate for surgery at this institution and if we are not able to solve the problem simply, he will need a complex GI consultation.
--- NOTE | 2021-03-24 14:00 | PHARMACY PROGRESS NOTE ---
- Best Possible Medication History Admit Date and Time: 03/23/21 1249 Processed by: Nursing Medication History completed: Yes As the person ultimately responsible for medication therapy, providers are able to order a medication from an existing home medication list in [facility] via the "Reconcile Routine" prior to Confirmation of that medication by product support rep. Such practice is discouraged except when the physician, in their clinical judgment, deems that a medical need exists for a medication without regard to previous use.
--- NOTE | 2021-03-24 14:36 | PROVIDER PROGRESS NOTE ---
Assessment/Plan - Problem List (1) Bowel obstruction Qualifiers: Intestinal obstruction type: unspecified Intestinal obstruction extent: complete Qualified Code(s): K56.601 - Complete intestinal obstruction, unspecified as to cause Assessment/Plan: 03/24 pt report his abdominal pain is slightly improved after he had NG tube, but he still has 600 green fluid from NG tube. pt report he has not pass gas or bowel movement yet. Per our GI surgeon's recommendation, hope pt had entyvio infusion. I did call pt's GI surgeon Dr. Yury Pierson, he is willing to help pt for prescription of this meds. Now we are very difficult to transfer pt for high level of care, because all major hospital were full, no bed available. pt is just coming into our hospital. we will continue IV steroid, pain control, encourage pt ambulation, IVF, continue NG tube, Antiemesis as needed. Patient reported abdominal pain and cramping, nausea and vomiting, CT show moderate to severe obstruction around ostomy bag area. Surgeon was consulted. Plan: NPO, IV fluids, pain control, NG tube, encourage safely patient walk, Antiemesis as needed, consulted with surgeon (2) Crohn's disease Conclusion/Plan: 03/24 we will continue IV steroid now, continue pain control. Called pt's GI, followup with his GI for management of his chronic Crohn's disease. Patient has history of Crohn's disease. pt Already had more than 1 week of his delay of home medication Entyvio. pt complain of abdominal pain and cramping. Per GI surgeon's recommendation, ER already had Dcatron for pt, we will start steroid solu-metro for pt now. Continue pain control, Patient may follow-up with his GI as outpatient. (3) Abdominal pain Conclusion/Plan: 03/24 slightly improved Patient's abdominal pain is likely caused by patient small bowel obstruction and possible Crohn disease. Pain control, continue treat underline medical issue as the above. (2) Crohn's disease Qualifiers: Gastrointestinal tract location: small and large intestine Digestive disease complication type: with intestinal obstruction Qualified Code(s): K50.812 - Crohn's disease of both small and large intestine with intestinal obstruction (3) Abdominal pain Qualifiers: Abdominal location: generalized Qualified Code(s): R10.84 - Generalized ab dominal pain - Current Meds Current Meds: Current Medications Generic Name Dose Route Start Last Admin Trade Name Freq PRN Reason Stop Dose Admin Enoxaparin Sodium 40 mg 03/24/21 09:00 03/24/21 10:59 Enoxaparin 40 Mg/0.4 Ml Syringe SUBQ 40 mg DAILY SEFERINO Administration Hydromorphone HCl 0.5 mg 03/23/21 12:49 03/24/21 13:44 Hydromorphone 0.5 Mg/0.5 Ml Syringe IVP 0.5 mg Q2H PRN Administration Pain 8 to 10 Dextrose/Sodium Chloride 1,000 mls @ 100 mls/hr 03/24/21 08:00 03/24/21 07:44 D5ns IV 100 mls/hr .Q10H SEFERINO Administration Methylprednisolone 40 mg 03/23/21 22:00 03/24/21 13:43 Methylprednisolone Succinate 40 Mg/Ml Vial IVP 40 mg TID SEFERINO Administration Ondansetron HCl 4 mg 03/23/21 12:49 03/24/21 12:54 Ondansetron 4 Mg/2 Ml Vial IVP 4 mg Q6HR PRN Administration Nausea / Vomiting Sodium Chloride 10 ml 03/23/21 12:49 03/24/21 03:40 Sodium Chloride Flush 0.9% 10 Ml Syringe IVP 10 ml PRN PRN Administration NEEDED PER PROVIDER ORDERS Sodium Chloride 10 ml 03/23/21 17:00 03/24/21 07:45 Sodium Chloride Flush 0.9% 10 Ml Syringe IVP 10 ml 0100,0900,1700 SEFERINO Administration - Lab Result Fish Bone Diagrams: 03/24/21 05:28 03/24/21 05:28 - Additional Planning My Orders: My Active Orders 03/23/21 14:57 phenoL [Chloraseptic] 2 sprays MM Q2HR PRN 03/23/21 17:00 Sodium Chloride Flush 0.9% [Normal Saline Flush 0.9%] 10 ml IVP 0100,0900,1700 03/23/21 22:00 methylPREDNISolone SUCCINATE [SOLU-Medrol (40MG VIAL)] 40 mg IVP TID 03/24/21 08:00 Dextrose 5%-0.9% NaCl [D5ns] 1,000 ml IV 100 mls/hr 03/24/21 09:00 Enoxaparin [Lovenox] 40 mg SUBQ DAILY 03/24/21 10:48 NG Tube Care [RC] Q4HR 03/25/21 05:00 BMP - BASIC METABOLIC PANEL [CHEM] DAILYLAB CBC - COMP BLD CT W/AUTO DIFF [HEME] DAILYLAB 03/26/21 05:00 BMP - BASIC METABOLIC PANEL [CHEM] DAILYLAB CBC - COMP BLD CT W/AUTO DIFF [HEME] DAILYLAB 03/27/21 05:00 BMP - BASIC METABOLIC PANEL [CHEM] DAILYLAB CBC - COMP BLD CT W/AUTO DIFF [HEME] DAILYLAB 03/28/21 05:00 BMP - BASIC METABOLIC PANEL [CHEM] DAILYLAB CBC - COMP BLD CT W/AUTO DIFF [HEME] DAILYLAB 03/29/21 05:00 BMP - BASIC METABOLIC PANEL [CHEM] DAILYLAB CBC - COMP BLD CT W/AUTO DIFF [HEME] DAILYLAB 03/30/21 05:00 BMP - BASIC METABOLIC PANEL [CHEM] DAILYLAB CBC - COMP BLD CT W/AUTO DIFF [HEME] DAILYLAB 03/31/21 05:00 BMP - BASIC METABOLIC PANEL [CHEM] DAILYLAB CBC - COMP BLD CT W/AUTO DIFF [HEME] DAILYLAB Subjective - Subjective Patient Reports: Feeling Better Objective Vital Signs: Vital Signs - 24 hr 03/23/21 03/23/21 03/24/21 15:48 23:49 07:50 Temperature 37.1 C 37.0 C 37 C Heart Rate [ 70 73 70 Brachial] Respiratory 16 16 16 Rate Blood Pressure 121/65 117/78 115/62 [Right Brachial artery] O2 Saturation 97 98 98 Oxygen O2 Source Room air I&O (Last 24 Hrs): Intake and Output Totals x24h 03/22/21 03/23/21 03/24/21 23:59 23:59 23:59 Intake Total 2009 Output Total 700 800 Balance 1310 120 General: Alert, Oriented x3, Cooperative HEENT: Atraumatic Neck: Supple Lymphatic: no adenopathy Neuro: Alert, Non Focal, Oriented Times 3 Cardiovascular: Regular rate, Normal S1, Normal S2 Respiratory: Chest non-tender, No respiratory distress, Breath sounds nml Abdomen: Normal bowel sounds, Soft, No tenderness Extremities: Normal pulses - Results Results: Laboratory Results WBC 10.3 x10^3/uL (4.8-10.8) 03/24/21 05:28 RBC 4.58 10^6/uL (4.70-6.10) L 03/24/21 05:28 Hgb 12.5 g/dL (14.0-18.0) L 03/24/21 05:28 Hct 37.7 % (42.0-52.0) L 03/24/21 05:28 MCV 82.3 fL (80.0-94.0) 03/24/21 05:28 MCH 27.3 pg (27.0-31.0) 03/24/21 05:28 MCHC 33.2 g/dL (32.0-36.0) 03/24/21 05:28 RDW 13.2 % (12.0-15.0) 03/24/21 05:28 Plt Count 257 10^3/uL (130-450) 03/24/21 05:28 MPV 10.4 fL (7.4-11.4) 03/24/21 05:28 Neut # (Auto) 8.6 10^3/uL (1.5-6.6) H 03/24/21 05:28 Lymph # (Auto) 1.2 10^3/uL (1.5-3.5) L 03/24/21 05:28 [place] # (Auto) 0.5 10^3/uL (0.0-1.0) 03/24/21 05:28 Eos # (Auto) 0.0 10^3/uL (0.0-0.7) 03/24/21 05:28 Baso # (Auto) 0.0 10^3/uL (0.0-0.1) 03/24/21 05:28 Absolute Nucleated RBC 0.00 x10^3/uL 03/24/21 05:28 Nucleated RBC % 0.0 /100WBC 03/24/21 05:28 Sodium 134 mmol/L (135-145) L 03/24/21 05:28 Potassium 4.2 mmol/L (3.5-5.0) 03/24/21 05:28 Chloride 102 mmol/L (101-111) 03/24/21 05:28 Carbon Dioxide 24 mmol/L (21-32) 03/24/21 05:28 Anion Gap 8.0 (6-13) 03/24/21 05:28 BUN 18 mg/dL (6-20) 03/24/21 05:28 Creatinine 0.9 mg/dL (0.6-1.2) 03/24/21 05:28 Estimated GFR (MDRD) 105 (>89) 03/24/21 05:28 Glucose 160 mg/dL (70-100) H 03/24/21 05:28 Calcium 8.7 mg/dL (8.5-10.3) 03/24/21 05:28 Total Bilirubin 1.6 mg/dL (0.2-1.0) H 03/23/21 09:15 AST 17 IU/L (10-42) 03/23/21 09:15 ALT 16 IU/L (10-60) 03/23/21 09:15 Alkaline Phosphatase 87 IU/L (42-121) 03/23/21 09:15 Total Protein 8.6 g/dL (6.7-8.2) H 03/23/21 09:15 Albumin 4.7 g/dL (3.2-5.5) 03/23/21 09:15 Globulin 3.9 g/dL (2.1-4.2) 03/23/21 09:15 Albumin/Globulin Ratio 1.2 (1.0-2.2) 03/23/21 09:15 Lipase 26 U/L (22-51) 03/23/21 09:15 Urine Color YELLOW 03/23/21 12:15 Urine Clarity CLEAR (CLEAR) 03/23/21 12:15 Urine pH 5.5 PH (5.0-7.5) 03/23/21 12:15 Ur Specific [place] >=1.030 (1.002-1.030) H 03/23/21 12:15 Urine Protein 100 mg/dL (NEGATIVE) H 03/23/21 12:15 Urine Glucose (UA) NEGATIVE mg/dL (NEGATIVE) 03/23/21 12:15 Urine Ketones 40 mg/dL (NEGATIVE) H 03/23/21 12:15 Urine Occult Blood MODERATE (NEGATIVE) H 03/23/21 12:15 Urine Nitrite NEGATIVE (NEGATIVE) 03/23/21 12:15 Urine Bilirubin NEGATIVE (NEGATIVE) 03/23/21 12:15 Urine Urobilinogen 0.2 (NORMAL) E.U./dL (NORMAL) 03/23/21 12:15 Ur Leukocyte Esterase NEGATIVE (NEGATIVE) 03/23/21 12:15 Urine RBC 0-5 /HPF (0-5) 03/23/21 12:15 Urine WBC 0-3 /HPF (0-3) 03/23/21 12:15 Ur Squamous Epith Cells RARE Squamous (<= Few) 03/23/21 12:15 Urine Bacteria None Seen /HPF (None Seen) 03/23/21 12:15 Urine Casts 0-2 Cellular Casts /LPF 03/23/21 12:15 Urine Mucus Few Strands 03/23/21 12:15 Ur Microscopic Review INDICATED 03/23/21 12:15 Urine Culture Comments NOT INDICATED 03/23/21 12:15 Nasal Adenovirus (PCR) NOT DETECTED 03/23/21 13:50 Nasal B. parapertussis DNA (PCR) NOT DETECTED 03/23/21 13:50 Nasal Coronavir 229E PCR NOT DETECTED 03/23/21 13:50 Nasal Coronavir HKU1 PCR NOT DETECTED 03/23/21 13:50 Nasal Coronavir NL63 PCR NOT DETECTED 03/23/21 13:50 Nasal Coronavir OC43 PCR NOT DETECTED 03/23/21 13:50 Nasal Enterovir/Rhinovir PCR NOT DETECTED 03/23/21 13:50 Nasal Influenza B PCR NOT DETECTED 03/23/21 13:50 Nasal Influenza A PCR NOT DETECTED 03/23/21 13:50 Nasal Parainfluen 1 PCR NOT DETECTED 03/23/21 13:50 Nasal Parainfluen 2 PCR NOT DETECTED 03/23/21 13:50 Nasal Parainfluen 3 PCR NOT DETECTED 03/23/21 13:50 Nasal Parainfluen 4 PCR NOT DETECTED 03/23/21 13:50 Nasal RSV (PCR) NOT DETECTED 03/23/21 13:50 Nasal B.pertussis DNA PCR NOT DETECTED 03/23/21 13:50 Nasal C.pneumoniae (PCR) NOT DETECTED 03/23/21 13:50 [place] Human Metapneumo PCR NOT DETECTED 03/23/21 13:50 Nasal M.pneumoniae (PCR) NOT DETECTED 03/23/21 13:50 Nasal SARS-CoV-2 (PCR) NOT DETECTED 03/23/21 13:50 Sepsis Event Note (H) - Evaluation Current Stage of Sepsis: Ruled out ABX Reporting Has patient been on IV antibiotics over the past 48 hours?: No Current Medications - Current Medications Current Medications: Active Medications Acetaminophen (Acetaminophen 325 Mg Tablet) 650 mg PO Q4HR PRN PRN Reason: Pain 1 to 4 Enoxaparin Sodium (Enoxaparin 40 Mg/0.4 Ml Syringe) 40 mg SUBQ DAILY [facility] Last Admin: 03/24/21 10:59 Dose: 40 mg Hydromorphone HCl (Hydromorphone 0.5 Mg/0.5 Ml Syringe) 0.5 mg IVP Q2H PRN PRN Reason: Pain 8 to 10 Last Admin: 03/24/21 13:44 Dose: 0.5 mg Dextrose/Sodium Chloride (D5ns) 1,000 mls @ 100 mls/hr IV .Q10H [facility] Last Admin: 03/24/21 07:44 Dose: 100 mls/hr Methylprednisolone (Methylprednisolone Succinate 40 Mg/Ml Vial) 40 mg IVP TID S Last Admin: 03/24/21 13:43 Dose: 40 mg Ondansetron HCl (Ondansetron 4 Mg/2 Ml Vial) 4 mg IVP Q6HR PRN PRN Reason: Nausea / Vomiting Last Admin: 03/24/21 12:54 Dose: 4 mg Phenol/Menthol (Phenol Throat Adah 177 Ml) 2 sprays MM Q2HR PRN PRN Reason: Throat Pain Prochlorperazine Edisylate (Prochlorperazine 10 Mg/2 Ml Vial) 10 mg IVP Q6HR PRN PRN Reason: Nausea / Vomiting Sodium Chloride (Sodium Chloride Flush 0.9% 10 Ml Syringe) 10 ml IVP PRN PRN PRN Reason: NEEDED PER PROVIDER ORDERS Last Admin: 03/24/21 03:40 Dose: 10 ml Sodium Chloride (Sodium Chloride Flush 0.9% 10 Ml Syringe) 10 ml IVP 0100,0900,1700 [facility] Last Admin: 03/24/21 07:45 Dose: 10 ml Multivitamin [Multivitamins] 1 tab.chew PO DAILY 09/06/19 HYDROmorphone [Dilaudid] 2 mg PO Q6HR PRN 09/10/20 Vedolizumab [Entyvio] 300 mg IV .Q6W 03/23/21
[2021-03-25] MEDS: DEXTROSE 5%-0.9% NACL 1,000 ML IV SCH ×3 (03:07→22:25)
[2021-03-25] MEDS: HYDROmorphone 0.5 MG/0.5 ML SYRINGE IVP PRN ×4 (03:20→22:26)
[2021-03-25] MEDS: methylPREDNISolone SUCCINATE 40 MG/ML VIAL IVP SCH ×3 (05:48→22:29)
[2021-03-25 06:01] LABS: BASOPHILS % (AUTO) 0.1 %; HCT - HEMATOCRIT 38.3 % (42.0-52.0); HGB - HEMOGLOBIN 12.8 g/dL (14.0-18.0); LYMPHOCYTES # (AUTO) 1.1 10^3/uL (1.5-3.5); LYMPHOCYTES % (AUTO) 10.6 %; MEAN CORPUSCULAR HEMOGLOBIN 27.9 pg (27.0-31.0); MEAN CORPUSCULAR HGB CONC 33.4 g/dL (32.0-36.0); MEAN CORPUSCULAR VOLUME 83.6 fL (80.0-94.0); MEAN PLATELET VOLUME 10.8 fL (7.4-11.4); MONOCYTES # (AUTO) 0.8 10^3/uL (0.0-1.0); MONOCYTES % (AUTO) 7.7 %; NEUTROPHILS # (AUTO) 8.2 10^3/uL (1.5-6.6); NEUTROPHILS % (AUTO) 81.2 %; PLT - PLATELET COUNT 231 10^3/uL (130-450); RED BLOOD COUNT 4.58 10^6/uL (4.70-6.10); RED CELL DISTRIBUTION WIDTH 13.2 % (12.0-15.0); WHITE BLOOD COUNT 10.1 x10^3/uL (4.8-10.8)
[2021-03-25 06:11] LABS: CALCIUM 8.5 mg/dL (8.5-10.3); POTASSIUM 3.7 mmol/L (3.5-5.0)
[2021-03-25] MEDS: ENOXAPARIN 40 MG/0.4 ML SYRINGE SUBQ SCH (09:40)
[2021-03-25] MEDS: SODIUM CHLORIDE FLUSH 0.9% 10 ML SYRINGE IVP SCH ×2 (10:01→17:33)
--- NOTE | 2021-03-25 11:26 | XRAY Report ---
PROCEDURE: Abdomen 1 View X-Ray INDICATIONS: SBO, monitor progress? TECHNIQUE: 2 AP views of the abdomen were acquired. COMPARISON: Abdominal x-ray 03/23/2021, CT abdomen pelvis 03/23/2021. FINDINGS: Surgical changes and devices: A nasogastric tube is redemonstrated with the tip in the stomach. Bowel: There is a persistent gas distended loop of bowel in the mid abdomen measuring up to 5.8 cm. Ileostomy is again noted in the right lower quadrant. Soft tissues: No suspicious abdominal calcifications. Bones: No suspicious bony abnormalities. IMPRESSION: 1. Gas distended loop of small bowel consistent with persistent small bowel obstruction. Reviewed by: Daniel Salinas MD on 03/25/2021 11:25 AM PST Approved by: Daniel Salinas MD on 03/25/2021 11:25 AM PST Station ID: [id number]
--- NOTE | 2021-03-25 11:49 | PROVIDER PROGRESS NOTE ---
Assessment/Plan - Problem List (1) Bowel obstruction Qualifiers: Intestinal obstruction type: unspecified Intestinal obstruction extent: complete Qualified Code(s): K56.601 - Complete intestinal obstruction, unspecified as to cause Assessment/Plan: 03/25 improved. pt passed lots of gas in his ostomy bag, and had small bowel movement per nurse report, and pt report his abdominal pain is reduced as well. will continue NPO now, continue D5 IVF, pain control, continue encourage pt safely ambulation. continue consult with our surgeon, thank surgeon's consultation for pt. called [facility], but no bed available, pt is on the waiting list. 03/24 pt report his abdominal pain is slightly improved after he had NG tube, but he still has 600 green fluid from NG tube. pt report he has not pass gas or bowel movement yet. Per our GI surgeon's recommendation, hope pt had entyvio infusion. I did call pt's GI surgeon Dr. Yury Pierson, he is willing to help pt for prescription of this meds. Now we are very difficult to transfer pt for high level of care, because all major hospital were full, no bed available. pt is just coming into our hospital. we will continue IV steroid, pain control, encourage pt ambulation, IVF, continue NG tube, Antiemesis as needed. Patient reported abdominal pain and cramping, nausea and vomiting, CT show moderate to severe obstruction around ostomy bag area. Surgeon was consulted. Plan: NPO, IV fluids, pain control, NG tube, encourage safely patient walk, Antiemesis as needed, consulted with surgeon (2) Crohn's disease Conclusion/Plan: 03/[address] Pierson did fax prescription of Entyvio [place], discussed with our pharmacy for pt's insurance issue for this medication. pt is improved, currently continue IV steroid. 03/24 we will continue IV steroid now, continue pain control. Called pt's GI, followup with his GI for management of his chronic Crohn's disease. Patient has history of Crohn's disease. pt Already had more than 1 week of his delay of home medication Entyvio. pt complain of abdominal pain and cramping. Per GI surgeon's recommendation, ER already had D[place]ron for pt, we will start steroid solu-metro for pt now. Continue pain control, Patient may follow-up with his GI as outpatient. (3) Abdominal pain Conclusion/Plan: 03/25 improved, continue pain control. Patient's abdominal pain is likely caused by patient small bowel obstruction and possible Crohn disease. Pain control, continue treat underline medical issue as the above. (2) Crohn's disease Qualifiers: Gastrointestinal tract location: small and large intestine Digestive disease complication type: with intestinal obstruction Qualified Code(s): K50.812 - Crohn's disease of both small and large intestine with intestinal obstruction (3) Abdominal pain Qualifiers: Abdominal location: generalized Qualified Code(s): R10.84 - Generalized abdominal pain - Current Meds Current Meds: Current Medications Generic Name Dose Route Start Last Admin Trade Name Freq PRN Reason Stop Dose Admin Enoxaparin Sodium 40 mg 03/24/21 09:00 03/25/21 09:40 Enoxaparin 40 Mg/0.4 Ml Syringe SUBQ 40 mg DAILY SEFERINO Administration Hydromorphone HCl 0.5 mg 03/23/21 12:49 03/25/21 09:40 Hydromorphone 0.5 Mg/0.5 Ml Syringe IVP 0.5 mg Q2H PRN Administration Pain 8 to 10 Dextrose/Sodium Chloride 1,000 mls @ 100 mls/hr 03/24/21 08:00 03/25/21 03:07 D5ns IV 100 mls/hr .Q10H SEFERINO Administration Methylprednisolone 40 mg 03/23/21 22:00 03/25/21 05:48 Methylprednisolone Succinate 40 Mg/Ml Vial IVP 40 mg TID SEFERINO Administration Ondansetron HCl 4 mg 03/23/21 12:49 03/24/21 12:54 Ondansetron 4 Mg/2 Ml Vial IVP 4 mg Q6HR PRN Administration Nausea / Vomiting Prochlorperazine Edisylate 10 mg 03/23/21 12:49 03/24/21 16:05 Prochlorperazine 10 Mg/2 Ml Vial IVP 10 mg Q6HR PRN Administration Nausea / Vomiting Sodium Chloride 10 ml 03/23/21 12:49 03/24/21 23:59 Sodium Chloride Flush 0.9% 10 Ml Syringe IVP 10 ml PRN PRN Administration NEEDED PER PROVIDER ORDERS Sodium Chloride 10 ml 03/23/21 17:00 03/25/21 10:01 Sodium Chloride Flush 0.9% 10 Ml Syringe IVP Not Given 0100,0900,1700 SEFERINO - Lab Result Fish Bone Diagrams: 03/25/21 05:41 03/25/21 05:41 - Additional Planning My Orders: My Active Orders 03/24/21 10:48 NG Tube Care [RC] Q4HR 03/26/21 05:00 BMP - BASIC METABOLIC PANEL [CHEM] DAILYLAB CBC - COMP BLD CT W/AUTO DIFF [HEME] DAILYLAB 03/27/21 05:00 BMP - BASIC METABOLIC PANEL [CHEM] DAILYLAB CBC - COMP BLD CT W/AUTO DIFF [HEME] DAILYLAB 03/28/21 05:00 BMP - BASIC METABOLIC PANEL [CHEM] DAILYLAB CBC - COMP BLD CT W/AUTO DIFF [HEME] DAILYLAB 03/29/21 05:00 BMP - BASIC METABOLIC PANEL [CHEM] DAILYLAB CBC - COMP BLD CT W/AUTO DIFF [HEME] DAILYLAB 03/30/21 05:00 BMP - BASIC METABOLIC PANEL [CHEM] DAILYLAB CBC - COMP BLD CT W/AUTO DIFF [HEME] DAILYLAB 03/31/21 05:00 BMP - BASIC METABOLIC PANEL [CHEM] DAILYLAB CBC - COMP BLD CT W/AUTO DIFF [HEME] DAILYLAB Subjective - Subjective Patient Reports: Feeling Better, Resting Comfortably Objective Vital Signs: Vital Signs - 24 hr 03/24/21 03/24/21 03/25/21 16:00 23:55 09:54 Temperature 37.0 C 36.9 C 36.7 C Heart Rate [ 67 59 L 66 Brachial] Respiratory 16 18 16 Rate Blood Pressure 124/66 126/79 118/61 [Right Brachial artery] O2 Saturation 100 98 99 Oxygen O2 Source Room air I&O (Last 24 Hrs): Intake and Output Totals x24h 03/23/21 03/24/21 03/25/21 23:59 23:59 23:59 Intake Total 2009 2278.333 590 Output Total 2000 1275 Balance 1310 278.333 -685 General: Alert, Oriented x3, Cooperative, No acute distress HEENT: Atraumatic Neck: Supple Lymphatic: no adenopathy Neuro: Alert, Non Focal, Oriented Times 3 Cardiovascular: Regular rate, Normal S1, Normal S2 Respiratory: Chest non-tender, No respiratory distress, Breath sounds nml Abdomen: Normal bowel sounds, Soft Extremities: Normal pulses - Results Results: Laboratory Results WBC 10.1 x10^3/uL (4.8-10.8) 03/25/21 05:41 RBC 4.58 10^6/uL (4.70-6.10) L 03/25/21 05:41 Hgb 12.8 g/dL (14.0-18.0) L 03/25/21 05:41 Hct 38.3 % (42.0-52.0) L 03/25/21 05:41 MCV 83.6 fL (80.0-94.0) 03/25/21 05:41 MCH 27.9 pg (27.0-31.0) 03/25/21 05:41 MCHC 33.4 g/dL (32.0-36.0) 03/25/21 05:41 RDW 13.2 % (12.0-15.0) 03/25/21 05:41 Plt Count 231 10^3/uL (130-450) 03/25/21 05:41 MPV 10.8 fL (7.4-11.4) 03/25/21 05:41 Neut # (Auto) 8.2 10^3/uL (1.5-6.6) H 03/25/21 05:41 Lymph # (Auto) 1.1 10^3/uL (1.5-3.5) L 03/25/21 05:41 [place] # (Auto) 0.8 10^3/uL (0.0-1.0) 03/25/21 05:41 Eos # (Auto) 0.0 10^3/uL (0.0-0.7) 03/25/21 05:41 Baso # (Auto) 0.0 10^3/uL (0.0-0.1) 03/25/21 05:41 Absolute Nucleated RBC 0.00 x10^3/uL 03/25/21 05:41 Nucleated RBC % 0.0 /100WBC 03/25/21 05:41 Sodium 137 mmol/L (135-145) 03/25/21 05:41 Potassium 3.7 mmol/L (3.5-5.0) 03/25/21 05:41 Chloride 99 mmol/L (101-111) L 03/25/21 05:41 Carbon Dioxide 28 mmol/L (21-32) 03/25/21 05:41 Anion Gap 10.0 (6-13) 03/25/21 05:41 BUN 18 mg/dL (6-20) 03/25/21 05:41 Creatinine 1.0 mg/dL (0.6-1.2) 03/25/21 05:41 Estimated GFR (MDRD) 93 (>89) 03/25/21 05:41 Glucose 142 mg/dL (70-100) H 03/25/21 05:41 Calcium 8.5 mg/dL (8.5-10.3) 03/25/21 05:41 Total Bilirubin 1.6 mg/dL (0.2-1.0) H 03/23/21 09:15 AST 17 IU/L (10-42) 03/23/21 09:15 ALT 16 IU/L (10-60) 03/23/21 09:15 Alkaline Phosphatase 87 IU/L (42-121) 03/23/21 09:15 Total Protein 8.6 g/dL (6.7-8.2) H 03/23/21 09:15 Albumin 4.7 g/dL (3.2-5.5) 03/23/21 09:15 Globulin 3.9 g/dL (2.1-4.2) 03/23/21 09:15 Albumin/Globulin Ratio 1.2 (1.0-2.2) 03/23/21 09:15 Lipase 26 U/L (22-51) 03/23/21 09:15 Urine Color YELLOW 03/23/21 12:15 Urine Clarity CLEAR (CLEAR) 03/23/21 12:15 Urine pH 5.5 PH (5.0-7.5) 03/23/21 12:15 Ur Specific [place] >=1.030 (1.002-1.030) H 03/23/21 12:15 Urine Protein 100 mg/dL (NEGATIVE) H 03/23/21 12:15 Urine Glucose (UA) NEGATIVE mg/dL (NEGATIVE) 03/23/21 12:15 Urine Ketones 40 mg/dL (NEGATIVE) H 03/23/21 12:15 Urine Occult Blood MODERATE (NEGATIVE) H 03/23/21 12:15 Urine Nitrite NEGATIVE (NEGATIVE) 03/23/21 12:15 Urine Bilirubin NEGATIVE (NEGATIVE) 03/23/21 12:15 Urine Urobilinogen 0.2 (NORMAL) E.U./dL (NORMAL) 03/23/21 12:15 Ur Leukocyte Esterase NEGATIVE (NEGATIVE) 03/23/21 12:15 Urine RBC 0-5 /HPF (0-5) 03/23/21 12:15 Urine WBC 0-3 /HPF (0-3) 03/23/21 12:15 Ur Squamous Epith Cells RARE Squamous (<= Few) 03/23/21 12:15 Urine Bacteria None Seen /HPF (None Seen) 03/23/21 12:15 Urine Casts 0-2 Cellular Casts /LPF 03/23/21 12:15 Urine Mucus Few Strands 03/23/21 12:15 Ur Microscopic Review INDICATED 03/23/21 12:15 Urine Culture Comments NOT INDICATED 03/23/21 12:15 Nasal Adenovirus (PCR) NOT DETECTED 03/23/21 13:50 Nasal B. parapertussis DNA (PCR) NOT DETECTED 03/23/21 13:50 Nasal Coronavir 229E PCR NOT DETECTED 03/23/21 13:50 Nasal Coronavir HKU1 PCR NOT DETECTED 03/23/21 13:50 Nasal Coronavir NL63 PCR NOT DETECTED 03/23/21 13:50 Nasal Coronavir OC43 PCR NOT DETECTED 03/23/21 13:50 Nasal Enterovir/Rhinovir PCR NOT DETECTED 03/23/21 13:50 Nasal Influenza B PCR NOT DETECTED 03/23/21 13:50 Nasal Influenza A PCR NOT DETECTED 03/23/21 13:50 Nasal Parainfluen 1 PCR NOT DETECTED 03/23/21 13:50 Nasal Parainfluen 2 PCR NOT DETECTED 03/23/21 13:50 Nasal Parainfluen 3 PCR NOT DETECTED 03/23/21 13:50 Nasal Parainfluen 4 PCR NOT DETECTED 03/23/21 13:50 Nasal RSV (PCR) NOT DETECTED 03/23/21 13:50 Nasal B.pertussis DNA PCR NOT DETECTED 03/23/21 13:50 Nasal C.pneumoniae (PCR) NOT DETECTED 03/23/21 13:50 [place] Human Metapneumo PCR NOT DETECTED 03/23/21 13:50 Nasal M.pneumoniae (PCR) NOT DETECTED 03/23/21 13:50 Nasal SARS-CoV-2 (PCR) NOT DETECTED 03/23/21 13:50 Sepsis Event Note (H) - Evaluation Current Stage of Sepsis: Ruled out ABX Reporting Has patient been on IV antibiotics over the past 48 hours?: No Current Medications - Current Medications Current Medications: Active Medications Acetaminophen (Acetaminophen 325 Mg Tablet) 650 mg PO Q4HR PRN PRN Reason: Pain 1 to 4 Enoxaparin Sodium (Enoxaparin 40 Mg/0.4 Ml Syringe) 40 mg SUBQ DAILY [facility] Last Admin: 03/25/21 09:40 Dose: 40 mg Hydromorphone HCl (Hydromorphone 0.5 Mg/0.5 Ml Syringe) 0.5 mg IVP Q2H PRN PRN Reason: Pain 8 to 10 Last Admin: 03/25/21 09:40 Dose: 0.5 mg Dextrose/Sodium Chloride (D5ns) 1,000 mls @ 100 mls/hr IV .Q10H [facility] Last Admin: 03/25/21 03:07 Dose: 100 mls/hr Methylprednisolone (Methylprednisolone Succinate 40 Mg/Ml Vial) 40 mg IVP TID [facility] Last Admin: 03/25/21 05:48 Dose: 40 mg Ondansetron HCl (Ondansetron 4 Mg/2 Ml Vial) 4 mg IVP Q6HR PRN PRN Reason: Nausea / Vomiting Last Admin: 03/24/21 12:54 Dose: 4 mg Phenol/Menthol (Phenol Throat [place] 177 Ml) 2 sprays MM Q2HR PRN PRN Reason: Throat Pain Prochlorperazine Edisylate (Prochlorperazine 10 Mg/2 Ml Vial) 10 mg IVP Q6HR PRN PRN Reason: Nausea / Vomiting Last Admin: 03/24/21 16:05 Dose: 10 mg Sodium Chloride (Sodium Chloride Flush 0.9% 10 Ml Syringe) 10 ml IVP PRN PRN PRN Reason: NEEDED PER PROVIDER ORDERS Last Admin: 03/24/21 23:59 Dose: 10 ml Sodium Chloride (Sodium Chloride Flush 0.9% 10 Ml Syringe) 10 ml IVP 010 0,0900,1700 [facility] Last Admin: 03/25/21 10:01 Dose: Not Given Multivitamin [Multivitamins] 1 tab.chew PO DAILY 09/06/19 HYDROmorphone [Dilaudid] 2 mg PO Q6HR PRN 09/10/20 Vedolizumab [Entyvio] 300 mg IV .Q6W 03/23/21
[2021-03-26] MEDS: SODIUM CHLORIDE FLUSH 0.9% 10 ML SYRINGE IVP SCH ×3 (01:52→15:58)
[2021-03-26] MEDS: ONDANSETRON 4 MG/2 ML VIAL IVP PRN (03:53)
[2021-03-26] MEDS: HYDROmorphone 0.5 MG/0.5 ML SYRINGE IVP PRN ×2 (03:53→13:01)
[2021-03-26] MEDS: methylPREDNISolone SUCCINATE 40 MG/ML VIAL IVP SCH ×3 (05:35→21:35)
[2021-03-26] MEDS: DEXTROSE 5%-0.9% NACL 1,000 ML IV SCH ×2 (07:23→16:09)
[2021-03-26 08:21] LABS: BASOPHILS % (AUTO) 0.1 %; LYMPHOCYTES % (AUTO) 9.4 %; MEAN CORPUSCULAR HEMOGLOBIN 27.5 pg (27.0-31.0); MEAN CORPUSCULAR HGB CONC 32.5 g/dL (32.0-36.0); MEAN CORPUSCULAR VOLUME 84.7 fL (80.0-94.0); MEAN PLATELET VOLUME 10.8 fL (7.4-11.4); MONOCYTES # (AUTO) 0.4 10^3/uL (0.0-1.0); MONOCYTES % (AUTO) 3.5 %; NEUTROPHILS # (AUTO) 8.8 10^3/uL (1.5-6.6); NEUTROPHILS % (AUTO) 86.6 %; PLT - PLATELET COUNT 230 10^3/uL (130-450); RED BLOOD COUNT 4.72 10^6/uL (4.70-6.10); RED CELL DISTRIBUTION WIDTH 13.2 % (12.0-15.0); WHITE BLOOD COUNT 10.1 x10^3/uL (4.8-10.8)
[2021-03-26 08:30] LABS: CALCIUM 8.6 mg/dL (8.5-10.3); CREATININE 0.8 mg/dL (0.6-1.2); POTASSIUM 3.8 mmol/L (3.5-5.0)
[2021-03-26] MEDS: ENOXAPARIN 40 MG/0.4 ML SYRINGE SUBQ SCH (08:51)
[2021-03-26] MEDS: SODIUM CHLORIDE FLUSH 0.9% 10 ML SYRINGE IVP PRN ×3 (13:01→21:35)
--- NOTE | 2021-03-26 15:47 | PROVIDER PROGRESS NOTE ---
Subjective - Prog Note Date Prog Note Date: 03/26/21 - Subjective Pt reports feeling: No change Subjective: Pt reports his pain has been adequately controlled but that it comes and goes. Ostomy output has been "minimal", nursing documentation indicates he had 100mL total ostomy output in the last 24 hours, 875mL total output from the NG. This morning there was increased NG output, 400mL over 5 hours, but it has slowed. It is dark brown but clear, no blood tinge noted. Denies nausea since last night, has had no vomiting. X-ray obtained yesterday demonstrated persistent small bowel obstruction. Continues to receive IV fluids and remains NPO. R eports he slept okay overnight and has been ambulating around the room independently. Objective - Vital Signs/Intake & Output Reviewed Vital Signs: Yes Vital Signs: Vital Signs x48h Temp Pulse Resp BP Pulse Ox 03/26/21 07:57 36.7 C 51 L 16 127/87 H 99 Intake & Output: Intake & Output 03/23/21 03/24/21 03/25/21 03/26/21 23:59 23:59 23:59 23:59 Intake Total 2009 2278.333 2600.000 1621.667 Output Total 700 2000 1800 1300 Balance 1310 278.333 800.000 321.667 - Objective General Appearance: positive: No acute distress, Alert Eyes Bilateral: positive: Normal inspection, PERRL, Conjunctivae nml, No scleral icterus ENT: positive: ENT inspection nml, No signs of dehydration Neck: positive: Nml inspection Respiratory: positive: Chest non-tender, No respiratory distress, Breath sounds nml Cardiovascular: positive: Regular rate & rhythm, No murmur Peripheral Pulses: 2+ Dorsalis pedis (R), 2+ Dorsalis pedis (L) Abdomen: positive: Other (Tender to deep palpation, comes and goes; bowel tones present in the upper quadrants) Skin: positive: Color nml, No rash, Warm, Dry Extremities: positive: Non-tender, Full ROM, Nml appearance Neurologic/Psychiatric: positive: Oriented x3 - Lab Results Fish Bones: 03/26/21 07:42 03/26/21 07:42 Other Labs: Lab Results x24hrs 03/26/21 03/26/21 Range/Units 07:42 07:42 WBC 10.1 (4.8-10.8) x10^3/uL RBC 4.72 (4.70-6.10) 10^6/uL Hgb 13.0 L (14.0-18.0) g/dL Hct 40.0 L (42.0-52.0) % MCV 84.7 (80.0-94.0) fL MCH 27.5 (27.0-31.0) pg MCHC 32.5 (32.0-36.0) g/dL RDW 13.2 (12.0-15.0) % Plt Count 230 (130-450) 10^3/uL MPV 10.8 (7.4-11.4) fL Neut # (Auto) 8.8 H (1.5-6.6) 10^3/uL Lymph # (Auto) 1.0 L (1.5-3.5) 10^3/uL [place] # (Auto) 0.4 (0.0-1.0) 10^3/uL Eos # (Auto) 0.0 (0.0-0.7) 10^3/uL Baso # (Auto) 0.0 (0.0-0.1) 10^3/uL Absolute Nucleated RBC 0.00 x10^3/uL Nucleated RBC % 0.0 /100WBC Sodium 138 (135-145) mmol/L Potassium 3.8 (3.5-5.0) mmol/L Chloride 101 (101-111) mmol/L Carbon Dioxide 27 (21-32) mmol/L Anion Gap 10.0 (6-13) BUN 18 (6-20) mg/dL Creatinine 0.8 (0.6-1.2) mg/dL Estimated GFR (MDRD) 120 (>89) Glucose 135 H (70-100) mg/dL Calcium 8.6 (8.5-10.3) mg/dL - Diagnostic Imaging Diagnostic Imaging Results: positive: Final report reviewed Diagnostic Imaging Comments: 03/25 Abdomen X-ray: Gas distended loop of small bowel consistent with persistent small bowel obstruction. ABX Reporting Has patient been on IV antibiotics over the past 48 hours?: No Sepsis Event Note (H) - Evaluation Current Stage of Sepsis: Ruled out Assessment/Plan - Problem List (1) Bowel obstruction Impression: Pt reports feeling "very slightly better" today. His pain has been controlled with IV analgesia. Has not had nausea since approximately 0100, no emesis. Initially overnight his NG output was minimal but he reports this morning that "all of the sudden a bunch came out". He has had 400mL out this shift and the output is clear but brown. It does not appear to be blood tinged but I have started him on a PPI daily for prophylaxis. Has had very minimal gas and stool output from the ostomy. Reports he changed the pouch last night and the stoma is red and protruding, unchanged from his baseline. Remains NPO with IV fluids running. He was encouraged to continue ambulating in the room. Given minimal improvement I have also increased his steroids to 80mg TID. I have ordered a repeat x-ray for monitoring in the morning. He is concerned about immunosuppression but does report he has had all 3 Covid shots and boosters. I called [facility] to discuss transfer and he is #10 on the waiting list. They are unable to bump him up despite the surgery team being familiar with him there due to recent laparotomy over the summer and believe it may be 24 hours or more before a bed is available. I also called [facility] in [place] but they are unable to accept him at this time. Given that he is stable we will keep him here for continued management and reach out to [facility] again tomorrow. Should he worsen will increase the urgency and reach out to other facilities for higher level of care though there continues to be difficulty with transfers given all hospitals in the region are reportedly full. Admitted with abdominal pain and cramping, nausea and vomiting. CT demonstrated moderate to severe obstruction around his ostomy. General Surgery (Dr. Garrison) was consulted who agreed with medical management and transfer to [facility] if no improvement as he will need a complex GI consultation and is not a candidate for surgery at our institution. INDERJIT Lowe called [facility] for transfer 03/25 and placed him on the waiting list. the Pt's GI surgeon was also called (Dr. Pierson) and provided a prescription for the patient's Entyvio infusion, however per Pharmacy and Social Work we are unable to obtain this while he is an inpatient and it may not be as beneficial during an acute flare up. Qualifiers: Intestinal obstruction type: unspecified Intestinal obstruction extent: complete Qualified Code(s): K56.601 - Complete intestinal obstruction, unspecified as to cause (2) Crohn's disease Impression: Pt was diagnosed in middle school. He typically receives Entyvio infusions every 6 weeks but due to insurance issues (the infusion had to wait for insurance authorization given the new year) he is over a week past due for the infusion. We are unable to obtain it for inpatient use per Pharmacy. IV steroids were increased, PPI was added, and we will continue with the current medical management at this time. He will need to follow up with his GI provider after discharge. Qualifiers: Gastrointestinal tract location: small and large intestine Digestive disease complication type: with intestinal obstruction Qualified Code(s): K50.812 - Crohn's disease of both small and large intestine with intestinal obstruction (3) Abdominal pain Impression: Stable. Related to his small bowel obstruction. Reports it comes and goes but has been controlled with IV analgesia. He was encouraged to also continue to ambulate in the room. Qualifiers: Abdominal location: generalized Qualified Code(s): R10.84 - Generalized abdominal pain
[2021-03-26] MEDS: PANTOPRAZOLE 40 MG VIAL IVP SCH (16:09)
[2021-03-27] MEDS: DEXTROSE 5%-0.9% NACL 1,000 ML IV SCH ×3 (01:41→21:03)
[2021-03-27] MEDS: SODIUM CHLORIDE FLUSH 0.9% 10 ML SYRINGE IVP SCH ×3 (01:43→16:48)
[2021-03-27] MEDS: HYDROmorphone 0.5 MG/0.5 ML SYRINGE IVP PRN ×3 (05:01→20:58)
[2021-03-27] MEDS: PANTOPRAZOLE 40 MG VIAL IVP SCH (05:04)
[2021-03-27] MEDS: methylPREDNISolone SUCCINATE 40 MG/ML VIAL IVP SCH ×3 (05:08→21:03)
[2021-03-27 06:55] LABS: CALCIUM 8.6 mg/dL (8.5-10.3); POTASSIUM 3.9 mmol/L (3.5-5.0)
[2021-03-27 07:15] LABS: BASOPHILS % (AUTO) 0.1 %; HGB - HEMOGLOBIN 13.4 g/dL (14.0-18.0); MEAN CORPUSCULAR HEMOGLOBIN 27.7 pg (27.0-31.0); MEAN CORPUSCULAR HGB CONC 32.7 g/dL (32.0-36.0); MEAN CORPUSCULAR VOLUME 84.7 fL (80.0-94.0); MEAN PLATELET VOLUME 10.9 fL (7.4-11.4); MONOCYTES # (AUTO) 0.4 10^3/uL (0.0-1.0); MONOCYTES % (AUTO) 3.7 %; NEUTROPHILS % (AUTO) 84.6 %; PLT - PLATELET COUNT 221 10^3/uL (130-450); RED BLOOD COUNT 4.84 10^6/uL (4.70-6.10); WHITE BLOOD COUNT 9.5 x10^3/uL (4.8-10.8)
--- NOTE | 2021-03-27 07:22 | PROVIDER PROGRESS NOTE ---
Subjective - Prog Note Date Prog Note Date: 03/27/21 - Subjective Pt reports feeling: Improved Subjective: Reports feeling slightly better this morning and slept okay overnight. X-ray obtained this morning shows "nonobstructive" pattern of gas, hoping his obstruction starts to improve. Had minimal output from the NG over the last 12 hours with 150mL total documented from the ostomy, so will plan to clamp the NG and start him on clear liquids today. Otherwise denies nausea, vomiting, fevers or chills. Reports pain is controlled on current regimen. Objective - Vital Signs/Intake & Output Reviewed Vital Signs: Yes Vital Signs: Vital Signs x48h Temp Pulse Resp BP 03/26/21 23:46 36.6 C 52 L 16 122/80 Intake & Output: Intake & Output 03/24/21 03/25/21 03/26/21 03/27/21 23:59 23:59 23:59 23:59 Intake Total 2278.333 2600.000 1843.334 983.333 Output Total 2000 1800 2000 Balance 278.333 800.000 -156.666 983.333 - Objective General Appearance: positive: No acute distress, Alert Eyes Bilateral: positive: Normal inspection, PERRL, Conjunctivae nml, No scleral icterus ENT: positive: ENT inspection nml, No signs of dehydration Neck: positive: Nml inspection Respiratory: positive: Chest non-tender, No respiratory distress, Breath sounds nml Cardiovascular: positive: Regular rate & rhythm, No murmur, No gallop Peripheral Pulses: 2+ Dorsalis pedis (R), 2+ Dorsalis pedis (L) Abdomen: positive: No organomegaly, Nml bowel sounds, No distention, Other (intermittent cramping and tenderness though improved per his report) Skin: positive: Color nml, No rash, Warm, Dry Extremities: positive: Non-tender, Full ROM, Nml appearance Neurologic/Psychiatric: positive: Oriented x3 - Lab Results Fish Bones: 03/27/21 06:42 03/27/21 06:42 Other Labs: Lab Results x24hrs 03/27/21 03/27/21 03/26/21 Range/Units 06:42 06:06 23:42 WBC (4.8-10.8) x10^3/uL RBC (4.70-6.10) 10^6/uL Hgb (14.0-18.0) g/dL Hct (42.0-52.0) % MCV (80.0-94.0) fL MCH (27.0-31.0) pg MCHC (32.0-36.0) g/dL RDW (12.0-15.0) % Plt Count (130-450) 10^3/uL MPV (7.4-11.4) fL Neut # (Auto) (1.5-6.6) 10^3/uL Lymph # (Auto) (1.5-3.5) 10^3/uL [place] # (Auto) (0.0-1.0) 10^3/uL Eos # (Auto) (0.0-0.7) 10^3/uL Baso # (Auto) (0.0-0.1) 10^3/uL Absolute Nucleated RBC x10^3/uL Nucleated RBC % /100WBC Sodium 135 (135-145) mmol/L Potassium 3.9 (3.5-5.0) mmol/L Chloride 99 L (101-111) mmol/L Carbon Dioxide 28 (21-32) mmol/L Anion Gap 8.0 (6-13) BUN 20 (6-20) mg/dL Creatinine 1.0 (0.6-1.2) mg/dL Estimated GFR (MDRD) 93 (>89) Glucose 139 H (70-100) mg/dL POC Whole Bld Glucose 123 H 125 H (70 - 100) mg/dL Calcium 8.6 (8.5-10.3) mg/dL 03/26/21 03/26/21 03/26/21 Range/Units 18:34 07:42 07:42 WBC 10.1 (4.8-10.8) x10^3/uL RBC 4.72 (4.70-6.10) 10^6/uL Hgb 13.0 L (14.0-18.0) g/dL Hct 40.0 L (42.0-52.0) % MCV 84.7 (80.0-94.0) fL MCH 27.5 (27.0-31.0) pg MCHC 32.5 (32.0-36.0) g/dL RDW 13.2 (12.0-15.0) % Plt Count 230 (130-450) 10^3/uL MPV 10.8 (7.4-11.4) fL Neut # (Auto) 8.8 H (1.5-6.6) 10^3/uL Lymph # (Auto) 1.0 L (1.5-3.5) 10^3/uL [place] # (Auto) 0.4 (0.0-1.0) 10^3/uL Eos # (Auto) 0.0 (0.0-0.7) 10^3/uL Baso # (Auto) 0.0 (0.0-0.1) 10^3/uL Absolute Nucleated RBC 0.00 x10^3/uL Nucleated RBC % 0.0 /100WBC Sodium 138 (135-145) mmol/L Potassium 3.8 (3.5-5.0) mmol/L Chloride 101 (101-111) mmol/L Carbon Dioxide 27 (21-32) mmol/L Anion Gap 10.0 (6-13) BUN 18 (6-20) mg/dL Creatinine 0.8 (0.6-1.2) mg/dL Estimated GFR (MDRD) 120 (>89) Glucose 135 H (70-100) mg/dL POC Whole Bld Glucose 110 H (70 - 100) mg/dL Calcium 8.6 (8.5-10.3) mg/dL - Diagnostic Imaging Diagnostic Imaging Results: positive: Final report reviewed Diagnostic Imaging Comments: 03/27 x-ray: nonobstructive bowel gas pattern. Sepsis Event Note (H) - Evaluation Current Stage of Sepsis: Ruled out Assessment/Plan - Problem List (1) Bowel obstruction Impression: May be slightly improved per today's abdominal x-ray. He continues to have periodic cramping and mostly gas from the ostomy, though 150mL total output was noted from the ostomy yesterday. 250mL noted output from overnight, minimal this morning, clear and brown. Will plan to clamp the NG tube and if he does well start him on clear liquids. Will likely need to take it slow until he has more ostomy output. If he tolerates clears today then may be able to remove the NG tube tomorrow and slowly advance his diet. I will hold off on calling [facility] given he is stable and slightly improving. Admitted with abdominal pain and cramping, nausea and vomiting. CT demonstrated moderate to severe obstruction around his ostomy. General Surgery (Dr. Garrison) was consulted who agreed with medical management and transfer to [facility] if no improvement as he will need a complex GI consultation and is not a candidate for surgery at our institution. [facility] called [facility] for transfer 03/25 and placed him on the waiting list. the Pt's GI surgeon was also called (Dr. Pierson) and provided a prescription for the patient's Entyvio infusion, however per Pharmacy and Social Work we are unable to obtain this while he is an inpatient and it may not be as beneficial during an acute flare up. Qualifiers: Intestinal obstruction type: unspecified Intestinal obstruction extent: complete Qualified Code(s): K56.601 - Complete intestinal obstruction, unspecified as to cause (2) Crohn's disease Impression: Pt was diagnosed in middle school. He typically receives Entyvio infusions every 6 weeks but due to insurance issues (the infusion had to wait for insurance authorization given the new year) he is over a week past due for the infusion. We are unable to obtain it for inpatient use per Pharmacy. IV steroids were increased yesterday, PPI was added yesterday, and we will continue with the current medical management at this time. He will need to follow up with his GI provider after discharge. Qualifiers: Gastrointestinal tract location: small and large intestine Digestive disease complication type: with intestinal obstruction Qualified Code(s): K50.812 - Crohn's disease of both small and large intestine with intestinal obstruction (3) Abdominal pain Impression: Stable. Related to his small bowel obstruction. Reports it comes and goes but has been controlled with IV analgesia. He was encouraged to also continue to ambulate in the room. Qualifiers: Abdominal location: generalized Qualified Code(s): R10.84 - Generalized abdominal pain
--- NOTE | 2021-03-27 08:15 | XRAY Report ---
PROCEDURE: Abdomen 1 View X-Ray INDICATIONS: SBO-monitor progress TECHNIQUE: 1 view of the abdomen were acquired. COMPARISON: 03/25/2021 FINDINGS: Surgical changes and devices: Nasogastric tube in stomach. Bowel: No pneumoperitoneum. The bowel gas pattern is normal. Soft tissues: No masses; visualized solid organ contours appear normal in size. No suspicious abdom inal calcifications. Bones: No suspicious bony abnormalities. IMPRESSION: Nonobstructive bowel gas pattern Reviewed by: Miah Amaral MD on 03/27/2021 7:13 AM [facility] Approved by: Miah Amaral MD on 03/27/2021 7:13 AM [facility] Station ID: [id number]
[2021-03-27] MEDS: ENOXAPARIN 40 MG/0.4 ML SYRINGE SUBQ SCH (09:34)
[2021-03-27] MEDS: SODIUM CHLORIDE FLUSH 0.9% 10 ML SYRINGE IVP PRN ×2 (09:50→14:23)
[2021-03-27] MEDS: ONDANSETRON 4 MG/2 ML VIAL IVP PRN (20:59)
[2021-03-28] MEDS: SODIUM CHLORIDE FLUSH 0.9% 10 ML SYRINGE IVP SCH ×3 (00:26→15:46)
[2021-03-28] MEDS: HYDROmorphone 0.5 MG/0.5 ML SYRINGE IVP PRN ×5 (02:48→22:35)
[2021-03-28] MEDS: PANTOPRAZOLE 40 MG VIAL IVP SCH (05:30)
[2021-03-28] MEDS: methylPREDNISolone SUCCINATE 40 MG/ML VIAL IVP SCH ×2 (05:31→14:19)
[2021-03-28 06:09] LABS: BASOPHILS % (AUTO) 0.1 %; HCT - HEMATOCRIT 41.6 % (42.0-52.0); LYMPHOCYTES # (AUTO) 1.2 10^3/uL (1.5-3.5); LYMPHOCYTES % (AUTO) 9.5 %; MEAN CORPUSCULAR HEMOGLOBIN 27.8 pg (27.0-31.0); MEAN CORPUSCULAR HGB CONC 33.7 g/dL (32.0-36.0); MEAN CORPUSCULAR VOLUME 82.5 fL (80.0-94.0); MEAN PLATELET VOLUME 10.7 fL (7.4-11.4); MONOCYTES # (AUTO) 0.5 10^3/uL (0.0-1.0); NEUTROPHILS # (AUTO) 11.2 10^3/uL (1.5-6.6); NEUTROPHILS % (AUTO) 85.4 %; PLT - PLATELET COUNT 228 10^3/uL (130-450); RED BLOOD COUNT 5.04 10^6/uL (4.70-6.10); RED CELL DISTRIBUTION WIDTH 12.9 % (12.0-15.0); WHITE BLOOD COUNT 13.1 x10^3/uL (4.8-10.8)
[2021-03-28 06:20] LABS: CALCIUM 8.6 mg/dL (8.5-10.3); POTASSIUM 3.8 mmol/L (3.5-5.0)
[2021-03-28] MEDS: DEXTROSE 5%-0.9% NACL 1,000 ML IV SCH ×2 (06:31→15:47)
[2021-03-28] MEDS: ENOXAPARIN 40 MG/0.4 ML SYRINGE SUBQ SCH (09:07)
[2021-03-28] MEDS: SODIUM CHLORIDE FLUSH 0.9% 10 ML SYRINGE IVP PRN ×2 (14:19→15:11)
--- NOTE | 2021-03-28 18:11 | PROVIDER PROGRESS NOTE ---
Assessment/Plan - Problem List (1) SBO (small bowel obstruction) Assessment/Plan: This is slowly and slightly improved per yesterday's abdominal x-ray. He is getting Solumedrol 80 mg iv tid. He continues to have periodic cramping and mostly gas but small dark stool from the ostomy bag. He has had the NG tube clamped for 24 hours and trying clear liquids around it and has had no M/V. Will unclamp the NG, check residual and if low residual we will remove the NG tube today and continue clears and then slowly advance his diet. We held off on calling [facility] or [facility] for transferring him, as he appears to be improving slowly. (2) Crohn's disease Impression: Pt was diagnosed in middle school. He typically receives Entyvio infusions every 6 weeks but due to insurance issues (the infusion had to wait for insurance authorization given the new year) he was over a week past due for the last infusion. We are unable to obtain it for inpatient use per Pharmacy. IV steroids were increased several days ago, PPI was added, and we will continue with the current medical management at this time. He will need to follow up with his GI provider after discharge. Qualifiers: Gastrointestinal tract location: small and large intestine Digestive disease complication type: with intestinal obstruction Qualified Code(s): K50.812 - Crohn's disease of both small and large intestine with intestinal obstruction (3) Abdominal pain Impression: Decrasing. Related to his small bowel obstruction. Reports it comes and goes but has been controlled with IV analgesia. He was encouraged to also continue to ambulate in the room, which he does. Qualifiers: Abdominal location: generalized Qualified Code(s): R10.84 - Generalized abdominal pain - Current Meds Current Meds: Current Medications Generic Name Dose Route Start Last Admin Trade Name Freq PRN Reason Stop Dose Admin Enoxaparin Sodium 40 mg 03/24/21 09:00 03/28/21 09:07 Enoxaparin 40 Mg/0.4 Ml Syringe SUBQ 40 mg DAILY SEFERINO Administration Hydromorphone HCl 0.5 mg 03/23/21 12:49 03/28/21 15:11 Hydromorphone 0.5 Mg/0.5 Ml Syringe IVP 0.5 mg Q2H PRN Administration Pain 8 to 10 Dextrose/Sodium Chloride 1,000 mls @ 100 mls/hr 03/24/21 08:00 03/28/21 17:15 D5ns IV 0 mls/hr .Q10H SEFERINO Infusion Ondansetron HCl 4 mg 03/23/21 12:49 03/27/21 20:59 Ondansetron 4 Mg/2 Ml Vial IVP 4 mg Q6HR PRN Administration Nausea / Vomiting Pantoprazole Sodium 40 mg 03/26/21 16:00 03/28/21 05:30 Pantoprazole 40 Mg Vial IVP 40 mg QDAC SEFERINO Administration Prochlorperazine Edisylate 10 mg 03/23/21 12:49 03/24/21 16:05 Prochlorperazine 10 Mg/2 Ml Vial IVP 10 mg Q6HR PRN Administration Nausea / Vomiting Sodium Chloride 10 ml 03/23/21 12:49 03/28/21 15:11 Sodium Chloride Flush 0.9% 10 Ml Syringe IVP 10 ml PRN PRN Administration NEEDED PER PROVIDER ORDERS Sodium Chloride 10 ml 03/23/21 17:00 03/28/21 15:46 Sodium Chloride Flush 0.9% 10 Ml Syringe IVP Not Given 0100,0900,1700 SEFERINO - Lab Result Fish Bone Diagrams: 03/28/21 05:19 03/28/21 05:19 - Additional Planning My Orders: My Active Orders 03/28/21 14:09 VITAMIN D,25-OH,TOTAL,IA [REFLAB] Routine Subjective - Subjective Patient Reports: Feeling Better (He is walking in his room, getting intermittent "spasms of abdominal pain". There has been 3 BMs today and a lot of gas in the ostomy bag. NG tube remains in. He is taking clear liquids around it and has had no nausea or vomiting for one day.) Objective Vital Signs: Vital Signs - 24 hr 03/28/21 03/28/21 03/28/21 00:15 07:58 15:36 Temperature 36.6 C 36.7 C 36.8 C Heart Rate [ 50 L 51 L 64 Brachial] Respiratory 16 16 18 Rate Blood Pressure 135/81 H 130/79 127/76 [Right Brachial artery] O2 Saturation 98 99 100 Oxygen O2 Source Room air I&O (Last 24 Hrs): Intake and Output Totals x24h 03/26/21 03/27/21 03/28/21 23:59 23:59 23:59 Intake Total 3476.039 5600.000 3080.001 Output Total 1999 1275 2740 Balance -075.637 4207.000 340.001 General: Alert, Oriented x3 HEENT: Mucous membr. moist/pink Neck: Supple, No JVD Neuro: Alert, Non Focal Cardiovascular: Regular rate, No murmurs Respiratory: No respiratory distress, Breath sounds nml Abdomen: Soft, No tenderness, Other (Diminished bowel sounds in the right upper quadrant, normal bowel sounds in the other 3 quadrants, no guarding or rebound.) Extremities: No clubbing, No edema - Results Results: Laboratory Results WBC 13.1 x10^3/uL (4.8-10.8) H 03/28/21 05:19 RBC 5.04 10^6/uL (4.70-6.10) 03/28/21 05:19 Hgb 14.0 g/dL (14.0-18.0) 03/28/21 05:19 Hct 41.6 % (42.0-52.0) L 03/28/21 05:19 MCV 82.5 fL (80.0-94.0) 03/28/21 05:19 MCH 27.8 pg (27.0-31.0) 03/28/21 05:19 MCHC 33.7 g/dL (32.0-36.0) 03/28/21 05:19 RDW 12.9 % (12.0-15.0) 03/28/21 05:19 Plt Count 228 10^3/uL (130-450) 03/28/21 05:19 MPV 10.7 fL (7.4-11.4) 03/28/21 05:19 Neut # (Auto) 11.2 10^3/uL (1.5-6.6) H 03/28/21 05:19 Lymph # (Auto) 1.2 10^3/uL (1.5-3.5) L 03/28/21 05:19 [place] # (Auto) 0.5 10^3/uL (0.0-1.0) 03/28/21 05:19 Eos # (Auto) 0.0 10^3/uL (0.0-0.7) 03/28/21 05:19 Baso # (Auto) 0.0 10^3/uL (0.0-0.1) 03/28/21 05:19 Absolute Nucleated RBC 0.00 x10^3/uL 03/28/21 05:19 Nucleated RBC % 0.0 /100WBC 03/28/21 05:19 Sodium 135 mmol/L (135-145) 03/28/21 05:19 Potassium 3.8 mmol/L (3.5-5.0) 03/28/21 05:19 Chloride 100 mmol/L (101-111) L 03/28/21 05:19 Carbon Dioxide 28 mmol/L (21-32) 03/28/21 05:19 Anion Gap 7.0 (6-13) 03/28/21 05:19 BUN 18 mg/dL (6-20) 03/28/21 05:19 Creatinine 1.0 mg/dL (0.6-1.2) 03/28/21 05:19 Estimated GFR (MDRD) 93 (>89) 03/28/21 05:19 Glucose 116 mg/dL (70-100) H 03/28/21 05:19 POC Whole Bld Glucose 130 mg/dL (70 - 100) H 03/27/21 11:25 Calcium 8.6 mg/dL (8.5-10.3) 03/28/21 05:19 Total Bilirubin 1.6 mg/dL (0.2-1.0) H 03/23/21 09:15 AST 17 IU/L (10-42) 03/23/21 09:15 ALT 16 IU/L (10-60) 03/23/21 09:15 Alkaline Phosphatase 87 IU/L (42-121) 03/23/21 09:15 Total Protein 8.6 g/dL (6.7-8.2) H 03/23/21 09:15 Albumin 4.7 g/dL (3.2-5.5) 03/23/21 09:15 Globulin 3.9 g/dL (2.1-4.2) 03/23/21 09:15 Albumin/Globulin Ratio 1.2 (1.0-2.2) 03/23/21 09:15 Lipase 26 U/L (22-51) 03/23/21 09:15 Vitamin B12 1130 pg/mL (180-914) H 03/28/21 14:09 Urine Color YELLOW 03/23/21 12:15 Urine Clarity CLEAR (CLEAR) 03/23/21 12:15 Urine pH 5.5 PH (5.0-7.5) 03/23/21 12:15 Ur Specific [place] >=1.030 (1.002-1.030) H 03/23/21 12:15 Urine Protein 100 mg/dL (NEGATIVE) H 03/23/21 12:15 Urine Glucose (UA) NEGATIVE mg/dL (NEGATIVE) 03/23/21 12:15 Urine Ketones 40 mg/dL (NEGATIVE) H 03/23/21 12:15 Urine Occult Blood MODERATE (NEGATIVE) H 03/23/21 12:15 Urine Nitrite NEGATIVE (NEGATIVE) 03/23/21 12:15 Urine Bilirubin NEGATIVE (NEGATIVE) 03/23/21 12:15 Urine Urobilinogen 0.2 (NORMAL) E.U./dL (NORMAL) 03/23/21 12:15 Ur Leukocyte Esterase NEGATIVE (NEGATIVE) 03/23/21 12:15 Urine RBC 0-5 /HPF (0-5) 03/23/21 12:15 Urine WBC 0-3 /HPF (0-3) 03/23/21 12:15 Ur Squamous Epith Cells RARE Squamous (<= Few) 03/23/21 12:15 Urine Bacteria None Seen /HPF (None Seen) 03/23/21 12:15 Urine Casts 0-2 Cellular Casts /LPF 03/23/21 12:15 Urine Mucus Few Strands 03/23/21 12:15 Ur Microscopic Review INDICATED 03/23/21 12:15 Urine Culture Comments NOT INDICATED 03/23/21 12:15 Nasal Adenovirus (PCR) NOT DETECTED 03/23/21 13:50 Nasal B. parapertussis DNA (PCR) NOT DETECTED 03/23/21 13:50 Nasal Coronavir 229E PCR NOT DETECTED 03/23/21 13:50 Nasal Coronavir HKU1 PCR NOT DETECTED 03/23/21 13:50 Nasal Coronavir NL63 PCR NOT DETECTED 03/23/21 13:50 Nasal Coronavir OC43 PCR NOT DETECTED 03/23/21 13:50 Nasal Enterovir/Rhinovir PCR NOT DETECTED 03/23/21 13:50 Nasal Influenza B PCR NOT DETECTED 03/23/21 13:50 Nasal Influenza A PCR NOT DETECTED 03/23/21 13:50 Nasal Parainfluen 1 PCR NOT DETECTED 03/23/21 13:50 Nasal Parainfluen 2 PCR NOT DETECTED 03/23/21 13:50 Nasal Parainfluen 3 PCR NOT DETECTED 03/23/21 13:50 Nasal Parainfluen 4 PCR NOT DETECTED 03/23/21 13:50 Nasal RSV (PCR) NOT DETECTED 03/23/21 13:50 Nasal B.pertussis DNA PCR NOT DETECTED 03/23/21 13:50 Nasal C.pneumoniae (PCR) NOT DETECTED 03/23/21 13:50 [place] Human Metapneumo PCR NOT DETECTED 03/23/21 13:50 Nasal M.pneumoniae (PCR) NOT DETECTED 03/23/21 13:50 Nasal SARS-CoV-2 (PCR) NOT DETECTED 03/23/21 13:50 Sepsis Event Note (H) - Evaluation Current Stage of Sepsis: Ruled out
[2021-03-28] MEDS: methylPREDNISolone SUCCINATE 125 MG/2 ML VIAL IVP SCH (21:22)
[2021-03-29] MEDS: HYDROmorphone 0.5 MG/0.5 ML SYRINGE IVP PRN ×3 (01:03→14:27)
[2021-03-29] MEDS: SODIUM CHLORIDE FLUSH 0.9% 10 ML SYRINGE IVP SCH ×3 (01:04→20:49)
[2021-03-29] MEDS: DEXTROSE 5%-0.9% NACL 1,000 ML IV SCH ×3 (03:00→22:39)
[2021-03-29 05:42] LABS: BASOPHILS % (AUTO) 0.1 %; HCT - HEMATOCRIT 41.8 % (42.0-52.0); HGB - HEMOGLOBIN 14.4 g/dL (14.0-18.0); LYMPHOCYTES # (AUTO) 1.4 10^3/uL (1.5-3.5); LYMPHOCYTES % (AUTO) 8.3 %; MEAN CORPUSCULAR HEMOGLOBIN 27.9 pg (27.0-31.0); MEAN CORPUSCULAR HGB CONC 34.4 g/dL (32.0-36.0); MEAN PLATELET VOLUME 10.4 fL (7.4-11.4); MONOCYTES # (AUTO) 0.9 10^3/uL (0.0-1.0); MONOCYTES % (AUTO) 5.3 %; NEUTROPHILS # (AUTO) 14.3 10^3/uL (1.5-6.6); NEUTROPHILS % (AUTO) 85.4 %; PLT - PLATELET COUNT 236 10^3/uL (130-450); RED BLOOD COUNT 5.16 10^6/uL (4.70-6.10); RED CELL DISTRIBUTION WIDTH 13.1 % (12.0-15.0); WHITE BLOOD COUNT 16.7 x10^3/uL (4.8-10.8)
[2021-03-29 05:52] LABS: CALCIUM 8.5 mg/dL (8.5-10.3); CREATININE 0.9 mg/dL (0.6-1.2); POTASSIUM 3.5 mmol/L (3.5-5.0)
[2021-03-29] MEDS: methylPREDNISolone SUCCINATE 125 MG/2 ML VIAL IVP SCH ×3 (06:11→21:30)
[2021-03-29] MEDS: PANTOPRAZOLE 40 MG VIAL IVP SCH (06:14)
[2021-03-29] MEDS: ENOXAPARIN 40 MG/0.4 ML SYRINGE SUBQ SCH (08:58)
--- NOTE | 2021-03-29 11:32 | PROVIDER PROGRESS NOTE ---
Assessment/Plan - Problem List (1) Bowel obstruction Qualifiers: Intestinal obstruction type: unspecified Intestinal obstruction extent: complete Qualified Code(s): K56.601 - Complete intestinal obstruction, unspecified as to cause Assessment/Plan: pt report his abdominal pain is better control, he feel slight nausea but no vomiting, pt continue pass gas and small bowel movements. NG tube was removed on yesterday, it seems pt tolerate clear diet well. KUB reveal pt's SBO was resolved. 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 pt report he has schedule to have injection of Entyvio on next week. in hospital now, we will continue IV of steroid, continue pain control, pt followup with his GI Dr. Ivett jang as out-pt closely (3) Abdominal pain Impression: improved, we will continue pain control, and treat with underline Crohn's with steroid, hopeful pt's SOB is resolved. (2) Crohn's disease Qualifiers: Gastrointestinal tract location: small and large intestine Digestive disease complication type: with intestinal obstruction Qualified Code(s): K50.812 - Crohn's disease of both small and large intestine with intestinal obstruction (3) Abdominal pain Qualifiers: Abdominal location: generalized Qualified Code(s): R10.84 - Generalized abdominal pain - Current Meds Current Meds: Current Medications Generic Name Dose Route Start Last Admin Trade Name Freq PRN Reason Stop Dose Admin Enoxaparin Sodium 40 mg 03/24/21 09:00 03/29/21 08:58 Enoxaparin 40 Mg/0.4 Ml Syringe SUBQ 40 mg DAILY SEFERINO Administration Hydromorphone HCl 0.5 mg 03/23/21 12:49 03/29/21 06:02 Hydromorphone 0.5 Mg/0.5 Ml Syringe IVP 0.5 mg Q2H PRN Administration Pain 8 to 10 Dextrose/Sodium Chloride 1,000 mls @ 100 mls/hr 03/24/21 08:00 03/29/21 03:00 D5ns IV 100 mls/hr .Q10H SEFERINO Administration Ondansetron HCl 4 mg 03/23/21 12:49 03/27/21 20:59 Ondansetron 4 Mg/2 Ml Vial IVP 4 mg Q6HR PRN Administration Nausea / Vomiting Pantoprazole Sodium 40 mg 03/26/21 16:00 03/29/21 06:14 Pantoprazole 40 Mg Vial IVP 40 mg QDAC SEFERINO Administration Prochlorperazine Edisylate 10 mg 03/23/21 12:49 03/24/21 16:05 Prochlorperazine 10 Mg/2 Ml Vial IVP 10 mg Q6HR PRN Administration Nausea / Vomiting Sodium Chloride 10 ml 03/23/21 12:49 03/28/21 15:11 Sodium Chloride Flush 0.9% 10 Ml Syringe IVP 10 ml PRN PRN Administration NEEDED PER PROVIDER ORDERS Sodium Chloride 10 ml 03/23/21 17:00 03/29/21 11:25 Sodium Chloride Flush 0.9% 10 Ml Syringe IVP Not Given 0100,0900,1700 SEFERINO - Lab Result Fish Bone Diagrams: 03/29/21 05:35 03/29/21 05:35 - Additional Planning My Orders: My Active Orders 03/29/21 11:00 Cholecalciferol [Vitamin D3] 50 mcg PO DAILY Lactobacillus Rhamnosus GG [Culturelle] 1 cap PO DAILY 03/29/21 Lunch Full Liquid Diet [DIET] 03/29/21 14:00 methylPREDNISolone SUCCINATE [SOLU-Medrol (125MG VIAL)] 60 mg IVP TID 03/30/21 05:00 BMP - BASIC METABOLIC PANEL [CHEM] DAILYLAB CBC - COMP BLD CT W/AUTO DIFF [HEME] DAILYLAB CRP - C-REACTIVE PROTEIN [CHEM] DAILYLAB 03/31/21 05:00 BMP - BASIC METABOLIC PANEL [CHEM] DAILYLAB CBC - COMP BLD CT W/AUTO DIFF [HEME] DAILYLAB CRP - C-REACTIVE PROTEIN [CHEM] DAILYLAB 04/01/21 05:00 CRP - C-REACTIVE PROTEIN [CHEM] DAILYLAB 04/02/21 05:00 CRP - C-REACTIVE PROTEIN [CHEM] DAILYLAB 04/03/21 05:00 CRP - C-REACTIVE PROTEIN [CHEM] DAILYLAB 04/04/21 05:00 CRP - C-REACTIVE PROTEIN [CHEM] DAILYLAB Subjective - Subjective Patient Reports: Feeling Better, Resting Comfortably Objective Vital Signs: Vital Signs - 24 hr 03/28/21 03/29/21 03/29/21 15:36 00:16 08:16 Temperature 36.8 C 36.6 C 37.4 C Heart Rate [ 64 46 L 75 Brachial] Respiratory 18 17 16 Rate Blood Pressure 127/76 135/94 H 123/62 [Right Brachial artery] O2 Saturation 100 97 99 Oxygen O2 Source Room air I&O (Last 24 Hrs): Intake and Output Totals x24h 03/27/21 03/28/21 03/29/21 23:59 23:59 23:59 Intake Total 3445.000 3580.001 2043.333 Output Total 1275 3540 2850 Balance 2170.000 40.001 -806.667 General: Alert, Oriented x3, Cooperative, No acute distress HEENT: Atraumatic Neck: Supple Lymphatic: no adenopathy Neuro: Alert, Non Focal, Oriented Times 3 Cardiovascular: Regular rate, Normal S1, Normal S2 Respiratory: Chest non-tender, No respiratory distress, Breath sounds nml Abdomen: Normal bowel sounds, Soft, No tenderness Extremities: Normal pulses - Results Results: Laboratory Results WBC 16.7 x10^3/uL (4.8-10.8) H 03/29/21 05:35 RBC 5.16 10^6/uL (4.70-6.10) 03/29/21 05:35 Hgb 14.4 g/dL (14.0-18.0) 03/29/21 05:35 Hct 41.8 % (42.0-52.0) L 03/29/21 05:35 MCV 81.0 fL (80.0-94.0) 03/29/21 05:35 MCH 27.9 pg (27.0-31.0) 03/29/21 05:35 MCHC 34.4 g/dL (32.0-36.0) 03/29/21 05:35 RDW 13.1 % (12.0-15.0) 03/29/21 05:35 Plt Count 236 10^3/uL (130-450) 03/29/21 05:35 MPV 10.4 fL (7.4-11.4) 03/29/21 05:35 Neut # (Auto) 14.3 10^3/uL (1.5-6.6) H 03/29/21 05:35 Lymph # (Auto) 1.4 10^3/uL (1.5-3.5) L 03/29/21 05:35 [place] # (Auto) 0.9 10^3/uL (0.0-1.0) 03/29/21 05:35 Eos # (Auto) 0.0 10^3/uL (0.0-0.7) 03/29/21 05:35 Baso # (Auto) 0.0 10^3/uL (0.0-0.1) 03/29/21 05:35 Absolute Nucleated RBC 0.00 x10^3/uL 03/29/21 05:35 Nucleated RBC % 0.0 /100WBC 03/29/21 05:35 Sodium 134 mmol/L (135-145) L 03/29/21 05:35 Potassium 3.5 mmol/L (3.5-5.0) 03/29/21 05:35 Chloride 97 mmol/L (101-111) L 03/29/21 05:35 Carbon Dioxide 27 mmol/L (21-32) 03/29/21 05:35 Anion Gap 10.0 (6-13) 03/29/21 05:35 BUN 17 mg/dL (6-20) 03/29/21 05:35 Creatinine 0.9 mg/dL (0.6-1.2) 03/29/21 05:35 Estimated GFR (MDRD) 105 (>89) 03/29/21 05:35 Glucose 128 mg/dL (70-100) H 03/29/21 05:35 POC Whole Bld Glucose 130 mg/dL (70 - 100) H 03/27/21 11:25 Calcium 8.5 mg/dL (8.5-10.3) 03/29/21 05:35 Total Bilirubin 1.6 mg/dL (0.2-1.0) H 03/23/21 09:15 AST 17 IU/L (10-42) 03/23/21 09:15 ALT 16 IU/L (10-60) 03/23/21 09:15 Alkaline Phosphatase 87 IU/L (42-121) 03/23/21 09:15 C-Reactive Protein < 1.0 mg/dL (0-1.0) 03/29/21 05:35 Total Protein 8.6 g/dL (6.7-8.2) H 03/23/21 09:15 Albumin 4.7 g/dL (3.2-5.5) 03/23/21 09:15 Globulin 3.9 g/dL (2.1-4.2) 03/23/21 09:15 Albumin/Globulin Ratio 1.2 (1.0-2.2) 03/23/21 09:15 Lipase 26 U/L (22-51) 03/23/21 09:15 Vitamin B12 1130 pg/mL (180-914) H 03/28/21 14:09 25-OH Vitamin D Total 24 ng/mL (30-100) L 03/28/21 14:09 Urine Color YELLOW 03/23/21 12:15 Urine Clarity CLEAR (CLEAR) 03/23/21 12:15 Urine pH 5.5 PH (5.0-7.5) 03/23/21 12:15 Ur Specific [place] >=1.030 (1.002-1.030) H 03/23/21 12:15 Urine Protein 100 mg/dL (NEGATIVE) H 03/23/21 12:15 Urine Glucose (UA) NEGATIVE mg/dL (NEGATIVE) 03/23/21 12:15 Urine Ketones 40 mg/dL (NEGATIVE) H 03/23/21 12:15 Urine Occult Blood MODERATE (NEGATIVE) H 03/23/21 12:15 Urine Nitrite NEGATIVE (NEGATIVE) 03/23/21 12:15 Urine Bilirubin NEGATIVE (NEGATIVE) 03/23/21 12:15 Urine Urobilinogen 0.2 (NORMAL) E.U./dL (NORMAL) 03/23/21 12:15 Ur Leukocyte Esterase NEGATIVE (NEGATIVE) 03/23/21 12:15 Urine RBC 0-5 /HPF (0-5) 03/23/21 12:15 Urine WBC 0-3 /HPF (0-3) 03/23/21 12:15 Ur Squamous Epith Cells RARE Squamous (<= Few) 03/23/21 12:15 Urine Bacteria None Seen /HPF (None Seen) 03/23/21 12:15 Urine Casts 0-2 Cellular Casts /LPF 03/23/21 12:15 Urine Mucus Few Strands 03/23/21 12:15 Ur Microscopic Review INDICATED 03/23/21 12:15 Urine Culture Comments NOT INDICATED 03/23/21 12:15 Nasal Adenovirus (PCR) NOT DETECTED 03/23/21 13:50 Nasal B. parapertussis DNA (PCR) NOT DETECTED 03/23/21 13:50 Nasal Coronavir 229E PCR NOT DETECTED 03/23/21 13:50 Nasal Coronavir HKU1 PCR NOT DETECTED 03/23/21 13:50 Nasal Coronavir NL63 PCR NOT DETECTED 03/23/21 13:50 Nasal Coronavir OC43 PCR NOT DETECTED 03/23/21 13:50 Nasal Enterovir/Rhinovir PCR NOT DETECTED 03/23/21 13:50 Nasal Influenza B PCR NOT DETECTED 03/23/21 13:50 Nasal Influenza A PCR NOT DETECTED 03/23/21 13:50 Nasal Parainfluen 1 PCR NOT DETECTED 03/23/21 13:50 Nasal Parainfluen 2 PCR NOT DETECTED 03/23/21 13:50 Nasal Parainfluen 3 PCR NOT DETECTED 03/23/21 13:50 Nasal Parainfluen 4 PCR NOT DETECTED 03/23/21 13:50 Nasal RSV (PCR) NOT DETECTED 03/23/21 13:50 Nasal B.pertussis DNA PCR NOT DETECTED 03/23/21 13:50 Nasal C.pneumoniae (PCR) NOT DETECTED 03/23/21 13:50 Bijan Human Metapneumo PCR NOT DETECTED 03/23/21 13:50 Nasal M.pneumoniae (PCR) NOT DETECTED 03/23/21 13:50 Nasal SARS-CoV-2 (PCR) NOT DETECTED 03/23/21 13:50 Sepsis Event Note (H) - Evaluation Current Stage of Sepsis: Ruled out ABX Reporting Has patient been on IV antibiotics over the past 48 hours?: No Current Medications - Current Medications Current Medications: Active Medications Acetaminophen (Acetaminophen 325 Mg Tablet) 650 mg PO Q4HR PRN PRN Reason: Pain 1 to 4 Cholecalciferol (Cholecalciferol 25 Mcg Tablet) 50 mcg PO DAILY [facility] Last Admin: 03/29/21 11:39 Dose: 50 mcg Enoxaparin Sodium (Enoxaparin 40 Mg/0.4 Ml Syringe) 40 mg SUBQ DAILY [facility] Last Admin: 03/29/21 08:58 Dose: 40 mg Hydromorphone HCl (Hydromorphone 0.5 Mg/0.5 Ml Syringe) 0.5 mg IVP Q2H PRN PRN Reason: Pain 8 to 10 Last Admin: 03/29/21 06:02 Dose: 0.5 mg Dextrose/Sodium Chloride (D5ns) 1,000 mls @ 100 mls/hr IV .Q10H [facility] Last Admin: 03/29/21 03:00 Dose: 100 mls/hr Lactobacillus Rhamnosus (Lactobacillus Rhamnosus Gg Capsule) 1 cap PO DAILY [facility] Last Admin: 03/29/21 11:39 Dose: 1 cap Methylprednisolone Sodium Succinate (Methylprednisolone Succinate 125 Mg/2 Ml Vial) 60 mg IVP TID [facility] Ondansetron HCl (Ondansetron 4 Mg/2 Ml Vial) 4 mg IVP Q6HR PRN PRN Reason: Nausea / Vomiting Last Admin: 03/27/21 20:59 Dose: 4 mg Pantoprazole Sodium (Pantoprazole 40 Mg Vial) 40 mg IVP QDAC [facility] Last Admin: 03/29/21 06:14 Dose: 40 mg Phenol/Menthol (Phenol Throat [place] 177 Ml) 2 sprays MM Q2HR PRN PRN Reason: Throat Pain Prochlorperazine Edisylate (Prochlorperazine 10 Mg/2 Ml Vial) 10 mg IVP Q6HR PRN PRN Reason: Nausea / Vomiting Last Admin: 03/24/21 16:05 Dose: 10 mg Sodium Chloride (Sodium Chloride Flush 0.9% 10 Ml Syringe) 10 ml IVP PRN PRN PRN Reason: NEEDED PER PROVIDER ORDERS Last Admin: 03/28/21 15:11 Dose: 10 ml Sodium Chloride (Sodium Chloride Flush 0.9% 10 Ml Syringe) 10 ml IVP 0100,0900,1700 [facility] Last Admin: 03/29/21 11:25 Dose: Not Given Multivitamin [Multivitamins] 1 tab.chew PO DAILY 09/06/19 HYDROmorphone [Dilaudid] 2 mg PO Q6HR PRN 09/10/20 Vedolizumab [Entyvio] 300 mg IV .Q6W 03/23/21
[2021-03-29] MEDS: LACTOBACILLUS RHAMNOSUS GG CAPSULE PO SCH (11:39)
[2021-03-29] MEDS: CHOLECALCIFEROL 25 MCG TABLET PO SCH (11:39)
[2021-03-29] MEDS: SODIUM CHLORIDE FLUSH 0.9% 10 ML SYRINGE IVP PRN ×2 (14:27→21:32)
[2021-03-30] MEDS: SODIUM CHLORIDE FLUSH 0.9% 10 ML SYRINGE IVP SCH ×2 (01:15→08:48)
[2021-03-30] MEDS: methylPREDNISolone SUCCINATE 125 MG/2 ML VIAL IVP SCH (06:34)
[2021-03-30] MEDS: PANTOPRAZOLE 40 MG VIAL IVP SCH (06:36)
[2021-03-30] MEDS: SODIUM CHLORIDE FLUSH 0.9% 10 ML SYRINGE IVP PRN ×2 (06:37→14:49)
[2021-03-30 06:41] LABS: BASOPHILS % (AUTO) 0.1 %; HCT - HEMATOCRIT 43.3 % (42.0-52.0); HGB - HEMOGLOBIN 14.7 g/dL (14.0-18.0); LYMPHOCYTES # (AUTO) 1.4 10^3/uL (1.5-3.5); LYMPHOCYTES % (AUTO) 7.6 %; MEAN CORPUSCULAR HEMOGLOBIN 27.8 pg (27.0-31.0); MEAN CORPUSCULAR HGB CONC 33.9 g/dL (32.0-36.0); MEAN CORPUSCULAR VOLUME 81.9 fL (80.0-94.0); MEAN PLATELET VOLUME 10.6 fL (7.4-11.4); MONOCYTES % (AUTO) 5.2 %; NEUTROPHILS # (AUTO) 16.1 10^3/uL (1.5-6.6); NEUTROPHILS % (AUTO) 85.8 %; PLT - PLATELET COUNT 233 10^3/uL (130-450); RED BLOOD COUNT 5.29 10^6/uL (4.70-6.10); RED CELL DISTRIBUTION WIDTH 13.2 % (12.0-15.0); WHITE BLOOD COUNT 18.8 x10^3/uL (4.8-10.8)
[2021-03-30 06:58] LABS: BUN - BLOOD UREA NITROGEN 16 mg/dL (6-20); CALCIUM 8.4 mg/dL (8.5-10.3); CARBON DIOXIDE - CO2 26 mmol/L (21-32); CHLORIDE 99 mmol/L (101-111); CREATININE 0.9 mg/dL (0.6-1.2); GFR - MDRD 105 (>89); GLUCOSE 109 mg/dL (70-100); POTASSIUM 3.5 mmol/L (3.5-5.0); SODIUM 134 mmol/L (135-145)
[2021-03-30 07:00] LABS: CRP - C-REACTIVE PROTEIN < 1.0 mg/dL (0-1.0)
[2021-03-30] MEDS: CHOLECALCIFEROL 25 MCG TABLET PO SCH (08:47)
[2021-03-30] MEDS: LACTOBACILLUS RHAMNOSUS GG CAPSULE PO SCH (08:47)
[2021-03-30] MEDS: ENOXAPARIN 40 MG/0.4 ML SYRINGE SUBQ SCH (08:48)
[2021-03-30] MEDS ORDERED: methylPREDNISolone SUCCINATE 40 MG/ML VIAL IVP SCH (14:00)
--- NOTE | 2021-03-30 15:15 | Discharge Plan ---
Discharge Plan Problem Reviewed?: Yes Disposition: Home, Self Care Condition: Stable Prescriptions: predniSONE [Deltasone] 20 mg PO [id number] #6 tab Diet: Regular Activity Restrictions: Activity as Tolerated Shower Restrictions: No (fall precaution) Instruction Topics: Obstruction Sm Bowel, Crohn Disease, Prednisone tablets Health Concerns: small bowel obstruction, crohn's disease Plan of Treatment: You tolerated regular diet without nausea, vomiting or abdominal pain. Xray reveals no bowel obstruction pattern. Your small bowel obstruction is resolved. You report you will have Entyvio injection on tomorrow and you will see your GI doctor on tomorrow. You have taper down Prednisone for total 4 days. Care Goals: Stabilization and improvement/resolved of your medical issue Assessment: Discussed the care plan with you, answered your questions, you understood Additional Instructions or Follow Up instructions: You may follow-up with your GI physician on tomorrow. Should the symptoms return or worse, you may present to the ER or call 911 for help No Smoking: If you smoke, Please STOP! Call for help. Follow-up with: Sabina Pennington ARNP [Primary Care Provider] -
--- NOTE | 2021-03-30 15:27 | DISCHARGE SUMMARY ---
Discharge Summary Admit Date: 03/23/21 Discharge Date: 03/30/21 Discharging Provider: Filippo Lowe Primary Care Provider: Sabina Sams Condition at Discharge: Stable Discharge Disposition: 01 Home, Self Care Discharge Facility Name: home - DIAGNOSES Discharge Diagnoses with Status of Each Condition: (1) Bowel obstruction resolved. pt tolerated regular diet without nausea, vomiting, abdominal pain. (2) Crohn's disease stable. pt has hx of crohn's disease since he was at middle school. pt has schedule to have injection of Entyvio on tomorrow and see his GI doctor on tomorrow as well. pt is prescribed short term and tapered down Prednisone - HPI History of Present Illness: This is a 25-years old male with medical history Significantly of Multiple times of small bowel obstruction in the past, Crohn's disease since he was at middle school, then Crohn's complicated with bowel perforation and ultimately colectomy since 2018. Patient reported he usually had injection of Entyvio every 6-week, But at this time because insurance issue, his injection already delayed more than 1 week. He is beginning to have abdominal pain on yesterday morning. He recognize it it is a similar pain as before his small bowel obstruction. He tried to reduce eating of food for hoping to resolve it by its self, but His symptoms was not resolved, he continued to have nausea and some vomiting, and abdominal sharp pain. Patient denies hematemesis, chest pain. his pain mainly l ocated at middle and lower quadrant around his ostomy bag area. Because the patient frequently has small bowel obstruction, patient reported his surgeon Dr. María Mejía did exploit surgery on August 2020 In [facility] but did not find significant cause. CT of the abdomen show moderate to severe obstruction in the ostomy. GI surgeon was consulted. Discussed the care goal with patient, patient hope to have full code - ALLERGIES Allergies/Adverse Reactions: Allergies Allergy/AdvReac Type Severity Reaction Status Date / Time amoxicillin [From Augmentin] Allergy Hives Verified 03/23/21 08:57 clavulanic acid Allergy Hives Verified 03/23/21 08:57 [From Augmentin] - MEDICATIONS Home Medications: Ambulatory Orders Medication Instructions Recorded Confirmed Multivitamin [Multivitamins] 1 tab.chew PO DAILY 09/06/19 03/23/21 HYDROmorphone [Dilaudid] 2 mg PO Q6HR PRN 09/10/20 03/23/21 Vedolizumab [Entyvio] 300 mg IV .Q6W 03/23/21 03/24/21 predniSONE [Deltasone] 20 mg PO [id number] #[id number] tab 03/30/21 - PHYSICAL EXAM AT DISCHARGE General Appearance: positive: No acute distress, Alert. negative: Lethargic Eyes Bilateral: positive: Normal inspection, No lid inflammation ENT: positive: ENT inspection nml, No signs of dehydration. negative: Purulent nasal drainage Neck: positive: Nml inspection, Trachea midline. negative: Tracheal deviation Respiratory: positive: Chest non-tender, No respiratory distress, Breath sounds nml. negative: Wheezes Cardiovascular: positive: Regular rate & rhythm, No murmur. negative: Tachycardia, Bradycardia, Systolic murmur, Diastolic murmur Peripheral Pulses: positive: 2+ Abdomen: positive: Non-tender, Nml bowel sounds, No distention. negative: Tenderness Back: positive: Nml inspection Skin: positive: Color nml, No rash, Warm, Dry. negative: Cyanosis Extremities: positive: Non-tender, Nml appearance Neurologic/Psychiatric: positive: Oriented x3, Motor nml, Sensation nml, Mood/affect nml. negative: Weakness, Sensory loss, Facial droop, Slurred/abnml speech, Depressed mood/affect - LABS Result Diagrams: 03/30/21 06:34 03/30/21 06:34 - SEPSIS Current Stage of Sepsis: Ruled out - FOLLOW UP Follow Up: You tolerated regular diet without nausea, vomiting or abdominal pain. Xray reveals no bowel obstruction pattern. Your small bowel obstruction is resolved. You report you will have Entyvio injection on tomorrow and you will see your GI doctor on tomorrow. You have taper down Prednisone for total 4 days. You may follow-up with your GI physician on tomorrow. Should the symptoms return or worse, you may present to the ER or call 911 for help - TIME SPENT Time Spent in Discharge (Minutes): 30
[2021-03-30 16:28] VITALS: BP 130/84
[2021-03-31] MEDS ORDERED: PANTOPRAZOLE 40 MG TABLET PO SCH (07:00)
== END 2021-03-30 16:28 | disposition home or self-care (01) | DRG 389 ==
LOC: ED 08:15 → MS2 12:49
PROVIDERS: ADMIT Nurse Practitioner Gerontology; ATTEND Nurse Practitioner Gerontology
DX: K56.601 Complete intestinal obstruction, unspecified as to cause (principal); K50.812 Crohn's disease of both small and large intestine with intestinal obstruction; Z90.49 Acquired absence of other specified parts of digestive tract; Z93.3 Colostomy status; T50.996A Underdosing of other drugs, medicaments and biological substances, initial encounter; Z91.128 Patient's intentional underdosing of medication regimen for other reason; Z20.822 Contact with and (suspected) exposure to COVID-19
CPT/HCPCS: 0202U; 36415; 74018; 74177; 80048; 80053; 81001; 82306; 82607; 83690; 85025; 86140; 93005; 96361; 96374; 96375; 99285; A9270; J1170; J1650; J7040; Q9967; 81003; 87086

== ENCOUNTER 2021-04-15 07:28 | Inpatient (IN) | payer OTHER, BC ==
[2021-04-15] MEDS ORDERED: ONDANSETRON 4 MG/2 ML VIAL IVP STA (07:55)
[2021-04-15] MEDS ORDERED: HYDROmorphone 1 MG/ML CARPUJECT IVP STA ×2 (07:55→09:06)
[2021-04-15] MEDS ORDERED: SODIUM CHLORIDE 0.9% 1,000 ML IV STA (07:55)
[2021-04-15 07:58] LABS: BASOPHILS # (AUTO) 0.1 10^3/uL (0.0-0.1); BASOPHILS % (AUTO) 0.3 %; EOSINOPHILS % (AUTO) 0.2 %; HCT - HEMATOCRIT 45.1 % (42.0-52.0); HGB - HEMOGLOBIN 15.3 g/dL (14.0-18.0); LYMPHOCYTES # (AUTO) 1.1 10^3/uL (1.5-3.5); LYMPHOCYTES % (AUTO) 6.3 %; MEAN CORPUSCULAR HEMOGLOBIN 28.2 pg (27.0-31.0); MEAN CORPUSCULAR HGB CONC 33.9 g/dL (32.0-36.0); MEAN CORPUSCULAR VOLUME 83.2 fL (80.0-94.0); MEAN PLATELET VOLUME 9.3 fL (7.4-11.4); MONOCYTES # (AUTO) 0.6 10^3/uL (0.0-1.0); MONOCYTES % (AUTO) 3.1 %; NEUTROPHILS % (AUTO) 89.8 %; PLT - PLATELET COUNT 231 10^3/uL (130-450); RED BLOOD COUNT 5.42 10^6/uL (4.70-6.10); RED CELL DISTRIBUTION WIDTH 13.9 % (12.0-15.0); WHITE BLOOD COUNT 17.8 x10^3/uL (4.8-10.8)
--- NOTE | 2021-04-15 08:00 | ED Physician Documentation ---
PD HPI ABD PAIN - Stated complaint Stated Complaint: VOMITING/ABD PX - Chief complaint Chief Complaint: Abd Pain - History obtained from History obtained from: Patient - Additional information Additional information: 25yo male with long hx Crohn's dz with perforation in 2018 and subsequent colectomy and ileostomy. Hx SBO x several times and SBO x 3 in the last month. Typically resolve with pain meds and bowel rest only. C/O pain since 11am yesterday and vomiting starting at 6am today. Pain is burning/sharp/cramping and general but worse in RLQ. Only 100ml out from ileostomy since 11am yesterday. Review of Systems Ten Systems: 10 systems reviewed and negative Constitutional: denies: Fever, Chills GI: reports: Abdominal Pain, Nausea, Vomiting. denies: Diarrhea, Hematemesis, Bloody / black stool : denies: Dysuria, Frequency PD PAST MEDICAL HISTORY - Past Medical History Cardiovascular: None Respiratory: None Neuro: None Endocrine/Autoimmune: None GI: Crohn's disease : None HEENT: None Psych: Depression, Anxiety Musculoskeletal: None Derm: None - Past Surgical History Past Surgical History: Yes General: Bowel surgery, Other - Present Medications Home Medications: Ambulatory Orders Medication Instructions Recorded Confirmed Multivitamin [Multivitamins] 1 tab.chew PO DAILY 09/06/19 04/15/21 HYDROmorphone [Dilaudid] 2 mg PO Q6HR PRN 09/10/20 04/15/21 Vedolizumab [Entyvio] 300 mg IV .Q6W 03/23/21 04/15/21 - Allergies Allergies/Adverse Reactions: Allergies Allergy/AdvReac Type Severity Reaction Status Date / Time amoxicillin [From Augmentin] Allergy Hives Verified 04/15/21 07:38 clavulanic acid Allergy Hives Verified 04/15/21 07:38 [From Augmentin] - Social History Does the pt smoke?: No Smoking Status: Never smoker Does the pt drink ETOH?: Yes Does the pt have substance abuse?: No - Family History Family history: reports: Non contributory - Immunizations Immunizations are current?: Yes - POLST Patient has POLST: No PD ED PE NORMAL - Vitals Vital signs reviewed: Yes - General General: Alert and oriented X 3, Other (appears uncomfortable/in pain) - HEENT HEENT: PERRL, EOMI - Neck Neck: Supple, no meningeal sign, No bony TTP - Cardiac Cardiac: RRR, No murmur - Respiratory Respiratory: No respiratory distress, Clear bilaterally - Abdomen Abdomen: Other (Occasional but intermittent high-pitched rushes of bowel sounds without tenderness, empty ileostomy bag.) - Back Back: No CVA TTP, No spinal TTP - Derm Derm: Normal color, Warm and dry - Extremities Extremities: No edema, No calf tenderness / cord - Neuro Neuro: Alert and oriented X 3, Normal speech Results - Vitals Vitals: Vital Signs - 24 hr 04/15/21 04/15/21 07:38 09:43 Temperature 37.1 C Heart Rate 82 87 Respiratory 23 16 Rate Blood Pressure 135/84 H 123/71 O2 Saturation 100 100 Oxygen O2 Source Room air - Labs Labs: Laboratory Tests 04/15/21 04/15/21 04/15/21 07:48 07:48 08:09 WBC 17.8 H RBC 5.42 Hgb 15.3 Hct 45.1 MCV 83.2 MCH 28.2 MCHC 33.9 RDW 13.9 Plt Count 231 MPV 9.3 Neut # (Auto) 16.0 H Lymph # (Auto) 1.1 L N[place] # (Auto) 0.6 Eos # (Auto) 0.0 Baso # (Auto) 0.1 Absolute Nucleated RBC 0.00 Nucleated RBC % 0.0 Sodium 136 Potassium 3.6 Chloride 101 Carbon Dioxide 22 Anion Gap 13.0 BUN 15 Creatinine 1.0 Estimated GFR (MDRD) 93 Glucose 131 H Calcium 9.5 Magnesium 1.9 Total Bilirubin 1.7 H AST 18 ALT 20 Alkaline Phosphatase 67 Total Protein 8.1 Albumin 4.5 Globulin 3.6 Albumin/Globulin Ratio 1.3 Lipase 36 SARS-CoV-2 (PCR) NOT DETECTED - Rads (name of study) Ct A/P Radiology: EMP read contemporaneously (S/P near-total colectomy with right lower quadrant ostomy. Mmultiple distended bowel loops up to 3.8 cm in diameter containing internal fecal matter and multiple air-fluid levels concerning for distal SBO with zone of transition in right lower quadrant approximately 3 cm proximal to the ostomy. Smal) PD MEDICAL DECISION MAKING - ED course ED course: 25-year-old gentleman with recurrent bowel obstruction in the setting of known Crohn's disease. CT as shown. Spoke with Dr. Abreu our on-call surgeon who will follow along and defers to the hospitalist for admission. Spoke with Dr. Moses for admission at 10:35 AM. There may be a delay to admission because the hospital is currently at capacity. Departure - Departure Disposition: 66 [facility] DC/Xfer Clinical Impression: SBO (small bowel obstruction) Crohn's disease Qualifiers: Gastrointestinal tract location: small and large intestine Digestive disease complication type: with intestinal obstruction Qualified Code(s): K50.812 - Crohn's disease of both small and large intestine with intestinal obstruction Condition: Serious Discharge Date/Time: 04/15/21 11:53
[2021-04-15] MEDS ORDERED: methylPREDNISolone SUCCINATE 125 MG/2 ML VIAL IVP STA (08:03)
[2021-04-15 08:08] LABS: ALBUMIN 4.5 g/dL (3.2-5.5); ALBUMIN/GLOBULIN RATIO 1.3 (1.0-2.2); BILIRUBIN,TOTAL 1.7 mg/dL (0.2-1.0); CALCIUM 9.5 mg/dL (8.5-10.3); MAGNESIUM 1.9 mg/dL (1.7-2.8); POTASSIUM 3.6 mmol/L (3.5-5.0); TOTAL PROTEIN 8.1 g/dL (6.7-8.2)
[2021-04-15] MEDS ORDERED: IOPAMIDOL-300 50 ML VIAL ONE (08:17)
[2021-04-15] MEDS ORDERED: IOVERSOL 320 100 ML VIAL IVP ONE ×2 (08:17→09:35)
[2021-04-15] MEDS ORDERED: METOCLOPRAMIDE 10 MG/2 ML VIAL IVP STA (09:06)
[2021-04-15] MEDS ORDERED: KETOROLAC 15 MG/ML VIAL IVP STA (09:41)
[2021-04-15] MEDS ORDERED: DROPERIDOL 5 MG/2 ML VIAL IVP STA (09:42)
--- NOTE | 2021-04-15 10:02 | CT Report ---
PROCEDURE: Abdomen/Pelvis W INDICATIONS: IV and PO, abd pain, ?SBO CONTRAST: IV CONTRAST: Optiray 320 ml: 100 PO CONTRAST: Isovue 300 ml50 TECHNIQUE: After the administration of IV and oral contrast, 5 mm thick sections acquired from the diaphragms to the symphysis. 5 mm thick coronal and sagittal reformats were acquired. For radiation dose reducti on, the following was used: automated exposure control, adjustment of mA and/or kV according to gee ent size. COMPARISON: CT of abdomen and pelvis dated 03/23/2021 and abdominal radiograph dated 03/27/2021. FINDINGS: Image quality: Excellent. ABDOMEN: Lung bases: Lung bases are clear. Heart size is normal. Solid organs: Liver and spleen are normal in size and enhancement. Gallbladder is within normal ham its. Biliary system is non dilated. Pancreas enhances normally. No adrenal nodules. Kidneys demon strate normal size and enhancement, without hydronephrosis. Peritoneum and bowel: Small amount of ascites fluid is seen adjacent to the liver. No gross pneumoper itoneum. Again noted is right lower quadrant ostomy with near complete right total colectomy unchange d from prior study. Oral contrast is seen in the stomach lumen. Again noted are fluid and fecal matte r distended bowel loops throughout abdomen with maximum diameter measures up to 3.8 cm series 4 image 30 not significantly changed from prior study. Multiple air-fluid levels are seen. There is decompre ssion of the bowel loops just proximal to the right lower quadrant ostomy concerning for obstruction at this level. Exact zone of transition cannot be definitively determined, possibly in right lower qu adrant approximately 3 cm proximal to the ostomy best seen on series 7 image 14 and series 4 image 44 through 46. Nodes and vessels: No retroperitoneal or mesenteric adenopathy by size criteria. Aorta and inferior vena cava are normal in size. Miscellaneous: No ventral hernias. PELVIS: Genitourinary: Bladder wall thickness is normal. Miscellaneous: No inguinal hernias or adenopathy. Bones: No suspicious bony lesions. No vertebral body compression fractures. IMPRESSION: 1. Patient is status post near-total colectomy with right lower quadrant ostomy unchanged from prior study. Again noted are multiple distended bowel loops up to 3.8 cm in diameter containing internal fe elvira matter and multiple air-fluid levels concerning for distal small bowel obstruction with zone of t ransition in right lower quadrant approximately 3 cm proximal to the ostomy as described above. 2. Small amount of ascites fluid adjacent to the liver. No peritoneal free air. Reviewed by: Sebastien Holman MD on 04/15/2021 10:01 AM [facility] Approved by: Sebastien Holman MD on 04/15/2021 10:01 AM [facility] Station ID: [id number]
[2021-04-15] MEDS ORDERED: ACETAMINOPHEN 325 MG TABLET PO PRN (10:42)
[2021-04-15] MEDS ORDERED: PROCHLORPERAZINE 10 MG/2 ML VIAL IVP PRN (10:42)
[2021-04-15] MEDS ORDERED: SODIUM CHLORIDE FLUSH 0.9% 10 ML SYRINGE IVP PRN ×2 (10:42→22:23)
[2021-04-15] MEDS: LACTATED RINGERS 1,000 ML IV SCH ×3 (11:05→19:08)
--- NOTE | 2021-04-15 11:51 | HISTORY & PHYSICAL EXAMINATION ---
Chief Complaint - Chief Complaint Chief Complaint: Abdominal Pain History of Present Illness - Admitted From Admitted From:: Home - History Obtained From Records Reviewed: [facility] History obtained from: Patient Exam Limitations: None - History of Present Illness HPI Comment/Other: 25 year old male with a history of Chrohn's disease with ileostomy presented to ED today for evaluation of abdominal pain. He reports that the pain began yesterday around 1100 am. He took some of his previously prescribed dilaudid which helped until he began vomiting this morning around 0600 am. His last episode of emesis was about 20 minutes ago. He reports that his ostomy has only put out 100 ccs since 1100 yesterday which is significantly less than usual. The consistency has been more liquid than usual. He denies any blood in his vomit or stool. He denies any fever, chills, weight loss or recent illness. He has not eaten since the pain started. He has a history of small bowel obstructions and has had 3 in the past month. His most recent one was 03/23/2021 where he was admitted for one week. An NG tube was placed and he underwent a 10 day course of steroids with a taper. No surgery. Presently, he reports severe, sharp, crampy abdominal pain and says that this feels similar to episodes he has had in the past. He is afebrile, heart rate 87, respirations 16, blood pressure 123/71, WBC 17.6 in the ED. He reports experiencing GI issues since 8th grade. He has a colonic perforation in 2018 and underwent a total pancolectomy at this time. He had a cdif infection during this admission. He has been on Entyvio since 2019, he gets it every 6 weeks and his last dose was 1.5 weeks ago. He had an ileostomy procedure in August [address] María Arellano. He denies any issues with his ostomy or any infections. He is followed by GI Dr. Maikol Pierson at [place]. His most recent visit with him was last week where he was referred to surgery. He reports that nothing came of this. History - Past Medical History Cardiovascular: reports: None Respiratory: reports: None Neuro: reports: None Endocrine/Autoimmune: reports: None GI: reports: C.difficile (2018), Crohn's disease : reports: None HEENT: reports: None Psych: reports: Depression, Anxiety Musculoskeletal: reports: None Derm: reports: None MRSA Hx?: No - Past Surgical History General: reports: Bowel surgery, Other - Family & Social History Family History: Mother: Alive and Well, Father: Alive and Well, Brother: Alive and Well Family History Comment/Other: Report both his parents is living and healthy. Grandpa recently diagnosed with ulcerative colitis. Living arrangement: At home Living Situation: With family Social History Notes: Patient denies any history of cigarette smoking, alcohol abuse or drug issue. He lives with his grandmother and girlfriend. He feels safe and well supported at home. - Substance History Use: Uses substance without health or social issues: NONE - POLST Patient has POLST: No Meds/Allgy - Home Medications Home Medications: Ambulatory Orders Medication Instructions Recorded Confirmed Multivitamin [Multivitamins] 1 tab.chew PO DAILY 09/06/19 04/15/21 HYDROmorphone [Dilaudid] 2 mg PO Q6HR PRN 09/10/20 04/15/21 Vedolizumab [Entyvio] 300 mg IV .Q6W 03/23/21 04/15/21 - Allergies Allergies/Adverse Reactions: Allergies Allergy/AdvReac Type Severity Reaction Status Date / Time amoxicillin [From Augmentin] Allergy Hives Verified 04/15/21 07:38 clavulanic acid Allergy Hives Verified 04/15/21 07:38 [From Augmentin] Review of Systems - Constitutional Constitutional: denies: Fever, Chills, Weakness, Weight loss - Ears, Nose & Throat Ears, Nose & Throat: denies: Nasal congestion, Sore throat - Cardiovascular Cariovascular: reports: Lightheadedness. denies: Chest pain, Decr. exercise tolerance - Respiratory Respiratory: denies: Cough, SOB at rest, SOB with exertion, Pleuritic pain - Gastrointestinal Gastrointestinal: reports: Abdominal pain, Change in bowel habits (more liquid stool in ostomy), Nausea, Vomiting, Poor appetite (He had not eaten since his abdominal pain began. Reports his appetite is usually good.). denies: Rectal bleeding, Black stools, Bloody stools - Genitourinary Genitourinary: denies: Dysuria, Hematuria - Musculoskeletal Musculoskeletal: denies: Muscle aches - Integumentary Integumentary: denies: Rash - Neurological Neurological: denies: Focal weakness, Dizziness - All Other Systems All Other Systems: reports: Reviewed and negative Prior Level of Functionality: Ambulates, able to care for self and perform ADLs Exam - Vital Signs Reviewed Vital Signs: Yes Vital Signs: Vital Signs x48h Temp Pulse Resp BP Pulse Ox 04/15/21 09:43 87 16 123/71 100 04/15/21 07:38 37.1 C 82 23 135/84 H 100 - Physical Exam General Appearance: positive: Alert, Moderate distress, Other (Left lateral recumbant position in bed, doubled over and cluthcing stomache. Intermitent moan s.) Eyes Bilateral: positive: Normal inspection, PERRL ENT: positive: ENT inspection nml, No signs of dehydration Neck: positive: Nml inspection Respiratory: positive: Chest non-tender, No respiratory distress, Breath sounds nml Cardiovascular: positive: Regular rate & rhythm, No murmur, No gallop. negative: Tachycardia Abdomen: positive: Tenderness (Left upper and lower quadrant), Abnml bowel sounds (Occasional, faint, high pitched bowel sounds), Other (Empty ostomy, right lower quadrant. Left lower quadrant surgical scar.) Neurologic/Psychiatric: positive: Oriented x3 Sepsis Event Note (H) - Evaluation Current Stage of Sepsis: Ruled out Conclusion/Plan - Problem List (1) SBO (small bowel obstruction) Conclusion/Plan: Distended loops of bowel with air fluid levels identified on CT, consistent with a small bowel obstruction. WBC 17.8. Afebrile, no infection suspected at this time but will continue to monitor WBC progression and give antibiotics as necessary. He has an extensive history of SBOs, 3 in the last month. It is unclear if they are due to inflammation from Chron's disease or mechanical from adhesions due to his past surgeries. He has undergone a colectomy and ileostomy. Consulted GI doc concrete mixing plant superintendent at [place], suggested fecal calprotectin to look for bowel inflammation. Agrees with steroids and supportive care at this time. Dr. Abreu, surgeon concrete mixing plant superintendent also consulted. He will follow during his stay. Plan Fecal calprotectin IV Solu-Medrol Bowel rest, NPO Consider NG tube if significant vomiting Dilaudid and Tylenol for pain control Prochlorperazine for nausea (2) Crohn's disease Conclusion/Plan: Start IV steroids for possible Chohn's flair. Follow up outpatient with GI to continue Entyvio on an outpatient basis. Qualifiers: Gastrointestinal tract location: small and large intestine Digestive disease complication type: with intestinal obstruction Qualified Code(s): K50.812 - Crohn's disease of both small and large intestine with intestinal obstruction - Lab Results Lab results reviewed: Yes Fish Bones: 04/15/21 07:48 04/15/21 07:48 - Diagnostic Imaging Results Diagnostic Imaging Results: positive: See rad report Diagnostic Imaging Results Comments: Multiple distended bowel loops up to 3.8 cm in diameter containing internal fecal matter and multiple air-fluid levels. Transition zone in right lower quadrant approximately 3 cm proximal to the ostomy. Core Measures - Anticipated LOS I expect patient to be DC'd or transferred within 96 hours.: Yes - Issues Hospital Issues and Management Plan: 25 year old male presents with abdominal pain, CT shows bowel obstruction. Will be admitted for further management. - DVT/VTE - Prophylaxis VTE/DVT Device ordered at admit?: Yes VTE/DVT Prophylaxis med ordered at admit?: Yes
[2021-04-15] MEDS: SODIUM CHLORIDE FLUSH 0.9% 10 ML SYRINGE IVP SCH (11:59)
[2021-04-15] MEDS: HYDROmorphone 1 MG/ML CARPUJECT IVP PRN ×5 (11:59→23:50)
--- NOTE | 2021-04-15 12:16 | PHARMACY PROGRESS NOTE ---
- Best Possible Medication History Admit Date and Time: 04/15/21 1042 Processed by: Nursing Medication History completed: Yes Patient Interview: Completed Secondary Source(s): Pharmacy records, Insurance records As the person ultimately responsible for medication therapy, providers are able to order a medication from an existing home medication list in [facility] via the "Reconcile Routine" prior to Confirmation of that medication by community support professional. Such practice is discouraged except when the physician, in their clinical judgment, deems that a medical need exists for a medication without regard to previous use.
[2021-04-15] MEDS: KETOROLAC 15 MG/ML VIAL IVP PRN ×2 (13:51→21:44)
--- NOTE | 2021-04-15 15:49 | XRAY Report ---
PROCEDURE: No-Charge 1V Abdomen INDICATIONS: NGT placement TECHNIQUE: 1 view of the abdomen were acquired. COMPARISON: March 27, 2021 FINDINGS: Surgical changes and devices: An enteric tube is seen, which appears looped in the distal esophagus. Bowel: No pneumoperitoneum. Dilatation of the small bowel measuring up to 4 cm, compatible with ileu s or obstruction. Soft tissues: No masses; visualized solid organ contours appear normal in size. No suspicious abdom inal calcifications. Bones: No suspicious bony abnormalities. IMPRESSION: Abnormal positioning of the enteric tube. Findings were discussed with the patient's nurse at the time of dictation. Reviewed by: Danyel Mac MD on 04/15/2021 3:47 PM PST Approved by: Danyel Mac MD on 04/15/2021 3:47 PM PST Station ID: [id number]
[2021-04-15] MEDS: ONDANSETRON 4 MG/2 ML VIAL IVP PRN ×2 (16:15→23:18)
--- NOTE | 2021-04-15 18:04 | XRAY Report ---
PROCEDURE: Chest for Line Placement INDICATIONS: NG tube line placement TECHNIQUE: One view of the chest was acquired. COMPARISON: Abdominal radiograph 04/15/2021 FINDINGS: Surgical changes and devices: Enteric tube has been repositioned, now with tip and sidehole the level of the diaphragm projecting over the left upper quadrant stomach bubble. Lungs and pleura: No pleural effusions or pneumothorax. Lungs are clear. Mediastinum: Mediastinal contours appear normal. Heart size is normal. Bones and chest wall: No suspicious bony lesions. Overlying soft tissues appear unremarkable. Dila jordan air-filled loops of small bowel are seen in the upper abdomen. IMPRESSION: Enteric tube has been repositioned and is now in satisfactory position. Reviewed by: Antony Gonzales MD on 04/15/2021 6:02 PM PST Approved by: Antony Gonzales MD on 04/15/2021 6:02 PM PST Station ID: [id number]
[2021-04-15] MEDS ORDERED: SODIUM CHLORIDE 0.9% 1,000 ML IV ONE ×3 (20:54→23:29)
[2021-04-15] MEDS ORDERED: LACTATED RINGERS 1,000 ML IV SCH (21:11)
--- NOTE | 2021-04-15 21:16 | PROVIDER PROGRESS NOTE ---
Collision Worker Note - Collision Worker Note Collision Worker Note: It was brought to my attention around 9 PM.the patient's blood pressure was in the 70s. Upon presentation to bedside systolic blood pressure was 63 with heart rate about 139. Patient was alert, oriented x4. He did not appear to be in any acute distress. He had also complained of lightheadedness earlier but none currently. 1 L bolus of normal saline was ordered. CBC, lactic acid and blood cultures x2 were ordered. Patient was started on empiric antibiotics of Cipro and Flagyl. He had been on lactated ringer which was increased to 150 mL/h. We'll continue to monitor. In the course of the night he complained of abdominal pain for which he was given a dose of Toradol and Dilaudid. After 2 L of fluid patient's blood pressure was still in the 70s. Anesthesia was called for central line placement. The patient was moved to the ICU. A 3rd liter of fluid was initiated. Patient's CBC showed white blood cell count of 34. Earlier in the day his white count had been 17. His lactic acid was 4.8. His creatinine was 2.8, potassium 5.8. He was given 1/3 L of normal saline bolus and then fluids which comprised of lactated Ringer's was run at 200 mL/h. Levophed was also initiated. He received dextrose 50, 1 amp and regular insulin 10 units IV x1.
[2021-04-15] MEDS ORDERED: SODIUM CHLORIDE 0.9% 500 ML IV ONE ×2 (21:46→22:02)
[2021-04-15] MEDS ORDERED: MAGNESIUM SULFATE 2 GRAM 2 GM/50 ML BAG IV ONE (21:59)
[2021-04-15] MEDS ORDERED: CIPROFLOXACIN 400 MG/200 ML 400 MG/200 ML BAG IV SCH (22:00)
[2021-04-15] MEDS ORDERED: metroNIDAZOLE 500 MG/100 ML 500 MG/100 ML BAG IV SCH (22:00)
[2021-04-15 23:45] LABS: BASOPHILS % (AUTO) 0.3 %; EOSINOPHILS % (AUTO) 0.1 %; HCT - HEMATOCRIT 50.9 % (42.0-52.0); HGB - HEMOGLOBIN 16.7 g/dL (14.0-18.0); LYMPHOCYTES % (AUTO) 5.6 %; MEAN CORPUSCULAR HGB CONC 32.8 g/dL (32.0-36.0); MEAN CORPUSCULAR VOLUME 85.3 fL (80.0-94.0); MEAN PLATELET VOLUME 9.9 fL (7.4-11.4); MONOCYTES % (AUTO) 6.4 %; NEUTROPHILS % (AUTO) 85.8 %; PLT - PLATELET COUNT 257 10^3/uL (130-450); RED BLOOD COUNT 5.97 10^6/uL (4.70-6.10); RED CELL DISTRIBUTION WIDTH 14.3 % (12.0-15.0); WHITE BLOOD COUNT 34.3 x10^3/uL (4.8-10.8)
[2021-04-15 23:54] LABS: ABNORMAL LYMPHS % (MANUAL) 0 %
[2021-04-16 00:05] LABS: BAND NEUTROPHILS % (MANUAL) 8 %; DIFFERENTIAL COMMENT MANUAL DIFFERENTIAL; LYMPHOCYTES # (MANUAL) 4.1 10^3/uL (1.5-3.5); LYMPHOCYTES % (MANUAL) 12 %; MONOCYTES # (MANUAL) 1.4 10^3/uL (0.0-1.0); NEUTROPHILS # (MANUAL) 28.8 10^3/uL (1.5-6.6); PLATELET ESTIMATE, MANUAL NORMAL (130-450,000) (NORMAL); PLATELET MORPHOLOGY NORMAL APPEARANCE (NORMAL); RBC MORPHOLOGY (MULTIPLE) NORMAL APPEARANCE (NORMAL); WBC MORPHOLOGY (MULTIPLE) NORMAL APPEARANCE (NORMAL)
[2021-04-16] MEDS: methylPREDNISolone SUCCINATE 40 MG/ML VIAL IVP SCH ×2 (00:20→08:48)
--- NOTE | 2021-04-16 00:26 | ANESTHESIA PROCEDURE NOTE ---
Anesth Central Line Template - Central Line Central Line Preparation: Consent Obtained, Time out completed, Ultrasound used, Sterile prep and drape Central line location: Right IJ Central line type: Triple lumen Central line catheter tip site resides: Superior vena cava (SVC) Central line aftercare: Chlorhexidine disc placed, Secured, Placement confirmed, No complications, Bundle checklist complete, Pt tolerated well
[2021-04-16 00:43] LABS: ALBUMIN 2.6 g/dL (3.2-5.5); BILIRUBIN,TOTAL 0.9 mg/dL (0.2-1.0); CALCIUM 7.2 mg/dL (8.5-10.3); CREATININE 2.7 mg/dL (0.6-1.2); POTASSIUM 5.9 mmol/L (3.5-5.0); TOTAL PROTEIN 5.2 g/dL (6.7-8.2)
--- NOTE | 2021-04-16 00:45 | XRAY Report ---
PROCEDURE: Chest for Line Placement INDICATIONS: Line and tube placement. TECHNIQUE: One view of the chest was acquired. COMPARISON: Chest x-ray, one view, 04/15/2021. FINDINGS: Surgical changes and devices: There is a right-sided central line with the tip projecting to the area of SVC. There is a nasogastric tube with the tip in the stomach. Lungs and pleura: No pleural effusions or pneumothorax. Lungs are clear. Mediastinum: Mediastinal contours appear normal. Heart size is normal. Bones and chest wall: No suspicious bony lesions. Overlying soft tissues appear unremarkable. IMPRESSION: 1. The central line tip projects to the area of SVC. 2. A nasogastric tube in the stomach. Reviewed by: Eduardo Kauffman MD on 04/16/2021 12:45 AM PST Approved by: Eduardo Kauffman MD on 04/16/2021 12:45 AM PST Station ID: [id number]
--- NOTE | 2021-04-16 00:48 | XRAY Report ---
PROCEDURE: Abdomen 1 View X-Ray INDICATIONS: abdominal pain TECHNIQUE: One view of the abdomen acquired. COMPARISON: CT abdomen and pelvis with contrast, 04/15/2021. FINDINGS: Surgical changes and devices: There is a nasogastric tube in the stomach. Bowel: Stomach is distended with an air-fluid level. Proximal small bowel loops are mildly dilated. N o colonic gas is visible Soft tissues: No suspicious abdominal calcifications. Visualized solid organ contours appear normal in size. Bones: No suspicious bony lesions. IMPRESSION: 1. There is a nasogastric tube in the stomach. 2. Suspect small bowel obstruction. Reviewed by: Eduardo Kauffman MD on 04/16/2021 12:47 AM PST Approved by: Eduardo Kauffman MD on 04/16/2021 12:47 AM PST Station ID: [id number]
[2021-04-16] MEDS: LACTATED RINGERS 1,000 ML IV SCH ×4 (01:07→17:26)
[2021-04-16] MEDS: SODIUM CHLORIDE FLUSH 0.9% 10 ML SYRINGE IVP SCH ×4 (01:07→09:32)
[2021-04-16] MEDS: HYDROmorphone 1 MG/ML CARPUJECT IVP PRN ×6 (02:00→12:58)
[2021-04-16 04:59] LABS: BASOPHILS % (AUTO) 0.3 %; EOSINOPHILS % (AUTO) 0.3 %; HCT - HEMATOCRIT 51.3 % (42.0-52.0); HGB - HEMOGLOBIN 16.9 g/dL (14.0-18.0); LYMPHOCYTES % (AUTO) 6.7 %; MEAN CORPUSCULAR HEMOGLOBIN 28.1 pg (27.0-31.0); MEAN CORPUSCULAR HGB CONC 32.9 g/dL (32.0-36.0); MEAN CORPUSCULAR VOLUME 85.2 fL (80.0-94.0); MEAN PLATELET VOLUME 9.9 fL (7.4-11.4); NEUTROPHILS % (AUTO) 86.2 %; PLT - PLATELET COUNT 291 10^3/uL (130-450); RED BLOOD COUNT 6.02 10^6/uL (4.70-6.10); RED CELL DISTRIBUTION WIDTH 14.6 % (12.0-15.0); WHITE BLOOD COUNT 32.3 x10^3/uL (4.8-10.8)
[2021-04-16 05:04] LABS: CALCIUM 7.9 mg/dL (8.5-10.3); CREATININE 2.8 mg/dL (0.6-1.2); MAGNESIUM 2.7 mg/dL (1.7-2.8); POTASSIUM 5.8 mmol/L (3.5-5.0)
[2021-04-16 05:05] LABS: ABNORMAL LYMPHS % (MANUAL) 0 %
[2021-04-16 05:09] LABS: BAND NEUTROPHILS % (MANUAL) 15 %; DIFFERENTIAL COMMENT MANUAL DIFFERENTIAL; LYMPHOCYTES # (MANUAL) 3.2 10^3/uL (1.5-3.5); LYMPHOCYTES % (MANUAL) 10 %; MONOCYTES # (MANUAL) 2.3 10^3/uL (0.0-1.0); NEUTROPHILS # (MANUAL) 26.8 10^3/uL (1.5-6.6); PLATELET ESTIMATE, MANUAL NORMAL (130-450,000) (NORMAL); PLATELET MORPHOLOGY NORMAL APPEARANCE (NORMAL); RBC MORPHOLOGY (MULTIPLE) NORMAL APPEARANCE (NORMAL); WBC MORPHOLOGY (MULTIPLE) NORMAL APPEARANCE (NORMAL)
[2021-04-16] MEDS ORDERED: INSULIN REGULAR HUMAN 300 UNIT/3 ML VIAL IVP ONE (06:38)
[2021-04-16] MEDS ORDERED: DEXTROSE 50% ABBOJECT 25 GM/50 ML SYRINGE IVP ONE (06:39)
[2021-04-16] MEDS ORDERED: metroNIDAZOLE 500 MG/100 ML 500 MG/100 ML BAG IV SCH (08:00)
--- NOTE | 2021-04-16 08:41 | CT Report ---
PROCEDURE: Abdomen/Pelvis WO INDICATIONS: SBO. Worsening pain. Septic shock. TECHNIQUE: Noncontrast 5 mm thick sections acquired from the diaphragms to the symphysis. 5 mm coronal and sagi ttal reformats were then performed. For radiation dose reduction, the following was used: automated exposure control, adjustment of mA and/or kV according to patient size. COMPARISON: 04/16/2021, 03/23/2021, 07/31/2020 FINDINGS: Image quality: Excellent. ABDOMEN: Lung bases: Small bilateral pleural effusions are seen. Heart size is normal. Solid organs: Liver and spleen are normal in size. Gallbladder demonstrates vicarious excretion of contrast. Pancreas is normal in contours. No adrenal nodules. Kidneys are normal in size, without hydronephrosis or nephrolithiasis. Peritoneum and bowel: A gastric tube is seen, with the tip within the mid stomach. Abnormal dilatation of the small bowel can be seen, with loops measuring up to 5.1 cm. Several loops of small bowel demonstrate forming stool, which is consistent with stagnant small bowel contents. A f ew decompressed loops of distal small bowel can be seen. A transition point is not identified. This patient is status post subtotal colectomy, with a right lower quadrant ostomy. No obstruction is seen at the ostomy site. There is a mild to moderate amount of ascites, which is increased in volume compared to the prior exa mination. No free air is detected. Nodes and vessels: No retroperitoneal or mesenteric adenopathy by size criteria. Aorta and inferior vena cava are normal in caliber. Miscellaneous: No ventral hernias. PELVIS: Genitourinary: A Contreras catheter seen, which decompresses the bladder. Miscellaneous: No inguinal hernias or adenopathy. Bones: No suspicious bony lesions. No vertebral body compression fractures. IMPRESSION: These imaging findings are most compatible with continued high-grade small bowel obstruc tion. The degree of small bowel dilatation is worse on the current study than on the examination on t he previous day. A transition point is not identified. Increased volume of ascites compared to the prior. No free air is seen. Small bilateral pleural effusions are now seen. Status post subtotal colectomy, with a right lower quadrant ostomy. Incidental note is made of: Vicarious excretion of contrast within the gallbladder Contreras catheter Reviewed by: Ismael Olmos MD on 04/16/2021 7:40 AM [place] Approved by: Ismael Olmos MD on 04/16/2021 7:40 AM [place] Station ID: [id number]
[2021-04-16 08:55] LABS: INR 1.6 (0.8-1.2); PT - PROTHROMBIN TIME 17.6 secs (9.9-12.6)
[2021-04-16 09:00] LABS: ALBUMIN 2.5 g/dL (3.2-5.5); BILIRUBIN,DIRECT 0.2 mg/dL (0.1-0.5); BILIRUBIN,TOTAL 0.8 mg/dL (0.2-1.0); CALCIUM 7.7 mg/dL (8.5-10.3); CREATININE 3.1 mg/dL (0.6-1.2)
[2021-04-16] MEDS ORDERED: ENOXAPARIN 40 MG/0.4 ML SYRINGE SUBQ SCH (09:00)
[2021-04-16 09:25] LABS: BILIRUBIN,URINE NEGATIVE (NEGATIVE); GLUCOSE, URINE (UA) NEGATIVE (NEGATIVE); KETONES,URINE (UA) TRACE mg/dL (NEGATIVE); LEUKOCYTE ESTERASE, URINE NEGATIVE (NEGATIVE); NITRITE,URINE NEGATIVE (NEGATIVE); OCCULT BLOOD,URINE MODERATE (NEGATIVE); PROTEIN,URINE 30 mg/dL (NEGATIVE); UROBILINOGEN,URINE 0.2 (NORMAL) E.U./dL (NORMAL)
[2021-04-16 09:30] LABS: CLARITY,URINE HAZY (CLEAR)
[2021-04-16 09:50] LABS: BACTERIA,URINE Few /HPF (None Seen); SQUAMOUS EPITHELIAL CELL,UR FEW Squamous (<= Few); WBC CLUMPS,URINE PRESENT
[2021-04-16] MEDS ORDERED: PHENOL THROAT SPRAY 177 ML MM PRN (09:57)
[2021-04-16] MEDS ORDERED: CEFEPIME 1 GM in SODIUM CHLORIDE 0.9% MINIBAG 100 ML IV SCH (10:00)
--- NOTE | 2021-04-16 12:33 | PROVIDER PROGRESS NOTE ---
Subjective - Prog Note Date Prog Note Date: 04/16/21 - Subjective Pt reports feeling: Worse Subjective: No stoma out put for nearly 2 days and progressive abdominal pain for 2 days. history 3 surgeries for crohns with subtotal colectomy ileostomy and lysis of adhesions and last exploration for obstruction. Objective - Vital Signs/Intake & Output Reviewed Vital Signs: Yes Vital Signs: Vital Signs x48h Temp Pulse Resp BP Pulse Ox 04/16/21 12:00 119 H 11 L 103/63 97 04/16/21 11:45 118 H 20 110/83 H 97 04/16/21 11:30 120 H 14 114/74 97 04/16/21 11:15 122 H 11 L 116/78 98 04/16/21 11:00 123 H 14 126/77 97 04/16/21 10:30 117 H 15 120/77 99 04/16/21 10:15 115 H 14 121/71 98 04/16/21 10:00 137 H 17 103/60 97 04/16/21 09:45 114 H 11 L 116/73 97 04/16/21 09:30 110 H 13 106/84 H 97 04/16/21 09:15 114 H 13 114/76 96 04/16/21 09:00 115 H 18 108/77 98 04/16/21 08:45 105 H 11 L 117/73 98 04/16/21 08:30 125 H 24 104/61 98 04/16/21 08:20 106 H 14 118/73 98 04/16/21 08:15 108 H 99 H 115/77 18 L 04/16/21 08:00 105 H 11 L 117/73 98 04/16/21 07:45 115 H 16 126/103 H 98 04/16/21 07:30 120 H 17 109/71 99 04/16/21 07:15 113 H 13 106/66 98 04/16/21 07:00 110 H 13 100/67 96 04/16/21 06:00 36.6 C 106 H 15 88/62 L 98 04/16/21 05:00 117 H 13 86/45 L 97 Intake & Output: Intake & Output 04/13/21 04/14/21 04/15/21 04/16/21 23:59 23:59 23:59 23:59 Intake Total 3785.5 3277.813 Output Total 750 340 Balance 3035.5 2937.813 - Objective General Appearance: positive: Alert, Mild distress Eyes Bilateral: positive: PERRL, EOMI ENT: positive: No signs of dehydration Neck: positive: No JVD Respiratory: positive: No respiratory distress Abdomen: positive: Other (mild distension and mild diffuse tenderness stoma swollen, dusky; however warm) Neurologic/Psychiatric: positive: Oriented x3 - Lab Results Fish Bones: 04/16/21 04:40 04/16/21 08:30 Other Labs: Lab Results x24hrs 04/16/21 04/16/21 04/16/21 Range/Units Unknown 11:50 11:20 WBC (4.8-10.8) x10^3/uL RBC (4.70-6.10) 10^6/uL Hgb (14.0-18.0) g/dL Hct (42.0-52.0) % MCV (80.0-94.0) fL MCH (27.0-31.0) pg MCHC (32.0-36.0) g/dL RDW (12.0-15.0) % Plt Count (130-450) 10^3/uL MPV (7.4-11.4) fL Neut # (Auto) Lymph # (Auto) [place] # (Auto) Eos # (Auto) Baso # (Auto) Absolute Nucleated RBC Total Counted Band Neuts % (Manual) (0 - 10) % Abnorm Lymph % (Manual) % Nucleated RBC % Neutrophils # (Manual) (1.5-6.6) 10^3/uL Lymphocytes # (Manual) (1.5-3.5) 10^3/uL Monocytes # (Manual) (0.0-1.0) 10^3/uL Eosinophils # (Manual) (0-0.7) 10^3/uL Basophils # (Manual) (0-0.1) 10^3/uL Differential Comment WBC Morphology (NORMAL) Platelet Estimate (NORMAL) Platelet Morphology (NORMAL) RBC Morph Micro Appear (NORMAL) PT (9.9-12.6) secs INR (0.8-1.2) Sodium (135-145) mmol/L Potassium (3.5-5.0) mmol/L Chloride (101-111) mmol/L Carbon Dioxide (21-32) mmol/L Anion Gap (6-13) BUN (6-20) mg/dL Creatinine (0.6-1.2) mg/dL Estimated GFR (MDRD) (>89) Glucose (70-100) mg/dL POC Whole Bld Glucose 132 H (70 - 100) mg/dL Lactic Acid 3.3 H* (0.5-2.2) mmol/L Calcium (8.5-10.3) mg/dL Magnesium (1.7-2.8) mg/dL Total Bilirubin (0.2-1.0) mg/dL Direct Bilirubin (0.1-0.5) mg/dL AST (10-42) IU/L ALT (10-60) IU/L Alkaline Phosphatase (42-121) IU/L Total Protein (6.7-8.2) g/dL Albumin (3.2-5.5) g/dL Globulin (2.1-4.2) g/dL Albumin/Globulin Ratio (1.0-2.2) Urine Color YELLOW Urine Clarity HAZY (CLEAR) Urine pH 5.0 (5.0-7.5) PH Ur Specific [place] >=1.030 H (1.002-1.030) Urine Protein 30 H (NEGATIVE) mg/dL Urine Glucose (UA) NEGATIVE (NEGATIVE) mg/dL Urine Ketones TRACE (NEGATIVE) mg/dL Urine Occult Blood MODERATE H (NEGATIVE) Urine Nitrite NEGATIVE (NEGATIVE) Urine Bilirubin NEGATIVE (NEGATIVE) Urine Urobilinogen 0.2 (NORMAL) (NORMAL) E.U./dL Ur Leukocyte Esterase NEGATIVE (NEGATIVE) Urine RBC 6-10 H (0-5) /HPF Urine WBC 6-10 H (0-3) /HPF Urine WBC Clumps PRESENT Ur Squamous Epith Cells FEW Squamous (<= Few) Urine Bacteria Few (None Seen) /HPF Nasal Screen MRSA (PCR) (NEGATIVE) 04/16/21 04/16/21 04/16/21 Range/Units 08:30 08:30 08:30 WBC (4.8-10.8) x10^3/uL RBC (4.70-6.10) 10^6/uL Hgb (14.0-18.0) g/dL Hct (42.0-52.0) % MCV (80.0-94.0) fL MCH (27.0-31.0) pg MCHC (32.0-36.0) g/dL RDW (12.0-15.0) % Plt Count (130-450) 10^3/uL MPV (7.4-11.4) fL Neut # (Auto) Lymph # (Auto) [place] # (Auto) Eos # (Auto) Baso # (Auto) Absolute Nucleated RBC Total Counted Band Neuts % (Manual) (0 - 10) % Abnorm Lymph % (Manual) % Nucleated RBC % Neutrophils # (Manual) (1.5-6.6) 10^3/uL Lymphocytes # (Manual) (1.5-3.5) 10^3/uL Monocytes # (Manual) (0.0-1.0) 10^3/uL Eosinophils # (Manual) (0-0.7) 10^3/uL Basophils # (Manual) (0-0.1) 10^3/uL Differential Comment WBC Morphology (NORMAL) Platelet Estimate (NORMAL) Platelet Morphology (NORMAL) RBC Morph Micro Appear (NORMAL) PT 17.6 H (9.9-12.6) secs INR 1.6 H (0.8-1.2) Sodium 136 (135-145) mmol/L Potassium 5.0 (3.5-5.0) mmol/L Chloride 107 (101-111) mmol/L Carbon Dioxide 16 L (21-32) mmol/L Anion Gap 13.0 (6-13) BUN 41 H (6-20) mg/dL Creatinine 3.1 H (0.6-1.2) mg/dL Estimated GFR (MDRD) 25 L (>89) Glucose 213 H (70-100) mg/dL POC Whole Bld Glucose (70 - 100) mg/dL Lactic Acid 4.4 H* (0.5-2.2) mmol/L Calcium 7.7 L (8.5-10.3) mg/dL Magnesium (1.7-2.8) mg/dL Total Bilirubin 0.8 (0.2-1.0) mg/dL Direct Bilirubin 0.2 (0.1-0.5) mg/dL AST 230 H (10-42) IU/L ALT 311 H (10-60) IU/L Alkaline Phosphatase 45 (42-121) IU/L Total Protein 5.0 L (6.7-8.2) g/dL Albumin 2.5 L (3.2-5.5) g/dL Globulin 2.5 (2.1-4.2) g/dL Albumin/Globulin Ratio (1.0-2.2) Urine Color Urine Clarity (CLEAR) Urine pH (5.0-7.5) PH Ur Specific [place] (1.002-1.030) Urine Protein (NEGATIVE) mg/dL Urine Glucose (UA) (NEGATIVE) mg/dL Urine Ketones (NEGATIVE) mg/dL Urine Occult Blood (NEGATIVE) Urine Nitrite (NEGATIVE) Urine Bilirubin (NEGATIVE) Urine Urobilinogen (NORMAL) E.U./dL Ur Leukocyte Esterase (NEGATIVE) Urine RBC (0-5) /HPF Urine WBC (0-3) /HPF Urine WBC Clumps Ur Squamous Epith Cells (<= Few) Urine Bacteria (None Seen) /HPF Nasal Screen MRSA (PCR) (NEGATIVE) 04/16/21 04/16/21 04/16/21 Range/Units 04:40 04:40 04:40 WBC 32.3 H (4.8-10.8) x10^3/uL RBC 6.02 (4.70-6.10) 10^6/uL Hgb 16.9 (14.0-18.0) g/dL Hct 51.3 (42.0-52.0) % MCV 85.2 (80.0-94.0) fL MCH 28.1 (27.0-31.0) pg MCHC 32.9 (32.0-36.0) g/dL RDW 14.6 (12.0-15.0) % Plt Count 291 (130-450) 10^3/uL MPV 9.9 (7.4-11.4) fL Neut # (Auto) Not Reportable Lymph # (Auto) Not Reportable [place] # (Auto) Not Reportable Eos # (Auto) Not Reportable Baso # (Auto) Not Reportable Absolute Nucleated RBC Not Reportable Total Counted 100 Band Neuts % (Manual) 15 H (0 - 10) % Abnorm Lymph % (Manual) 0 % Nucleated RBC % Not Reportable Neutrophils # (Manual) 26.8 H (1.5-6.6) 10^3/uL Lymphocytes # (Manual) 3.2 (1.5-3.5) 10^3/uL Monocytes # (Manual) 2.3 H (0.0-1.0) 10^3/uL Eosinophils # (Manual) 0.0 (0-0.7) 10^3/uL Basophils # (Manual) 0.0 (0-0.1) 10^3/uL Differential Comment MANUAL DIFFERENTIAL WBC Morphology NORMAL APPEARANCE (NORMAL) Platelet Estimate NORMAL (130-450,000) (NORMAL) Platelet Morphology NORMAL APPEARANCE (NORMAL) RBC Morph Micro Appear NORMAL APPEARANCE (NORMAL) PT (9.9-12.6) secs INR (0.8-1.2) Sodium 136 (135-145) mmol/L Potassium 5.8 H (3.5-5.0) mmol/L Chloride 110 (101-111) mmol/L Carbon Dioxide 16 L (21-32) mmol/L Anion Gap 10.0 (6-13) BUN 37 H (6-20) mg/dL Creatinine 2.8 H (0.6-1.2) mg/dL Estimated GFR (MDRD) 28 L (>89) Glucose 158 H (70-100) mg/dL POC Whole Bld Glucose (70 - 100) mg/dL Lactic Acid 3.6 H* (0.5-2.2) mmol/L Calcium 7.9 L (8.5-10.3) mg/dL Magnesium 2.7 (1.7-2.8) mg/dL Total Bilirubin (0.2-1.0) mg/dL Direct Bilirubin (0.1-0.5) mg/dL AST (10-42) IU/L ALT (10-60) IU/L Alkaline Phosphatase (42-121) IU/L Total Protein (6.7-8.2) g/dL Albumin (3.2-5.5) g/dL Globulin (2.1-4.2) g/dL Albumin/Globulin Ratio (1.0-2.2) Urine Color Urine Clarity (CLEAR) Urine pH (5.0-7.5) PH Ur Specific [place] (1.002-1.030) Urine Protein (NEGATIVE) mg/dL Urine Glucose (UA) (NEGATIVE) mg/dL Urine Ketones (NEGATIVE) mg/dL Urine Occult Blood (NEGATIVE) Urine Nitrite (NEGATIVE) Urine Bilirubin (NEGATIVE) Urine Urobilinogen (NORMAL) E.U./dL Ur Leukocyte Esterase (NEGATIVE) Urine RBC (0-5) /HPF Urine WBC (0-3) /HPF Urine WBC Clumps Ur Squamous Epith Cells (<= Few) Urine Bacteria (None Seen) /HPF Nasal Screen MRSA (PCR) (NEGATIVE) 04/16/21 04/15/21 04/15/21 Range/Units 00:25 23:57 23:38 WBC 34.3 H (4.8-10.8) x10^3/uL RBC 5.97 (4.70-6.10) 10^6/uL Hgb 16.7 (14.0-18.0) g/dL Hct 50.9 (42.0-52.0) % MCV 85.3 (80.0-94.0) fL MCH 28.0 (27.0-31.0) pg MCHC 32.8 (32.0-36.0) g/dL RDW 14.3 (12.0-15.0) % Plt Count 257 (130-450) 10^3/uL MPV 9.9 (7.4-11.4) fL Neut # (Auto) Not Reportable Lymph # (Auto) Not Reportable [place] # (Auto) Not Reportable Eos # (Auto) Not Reportable Baso # (Auto) Not Reportable Absolute Nucleated RBC Not Reportable Total Counted 100 Band Neuts % (Manual) 8 (0 - 10) % Abnorm Lymph % (Manual) 0 % Nucleated RBC % Not Reportable Neutrophils # (Manual) 28.8 H (1.5-6.6) 10^3/uL Lymphocytes # (Manual) 4.1 H (1.5-3.5) 10^3/uL Monocytes # (Manual) 1.4 H (0.0-1.0) 10^3/uL Eosinophils # (Manual) 0.0 (0-0.7) 10^3/uL Basophils # (Manual) 0.0 (0-0.1) 10^3/uL Differential Comment MANUAL DIFFERENTIAL WBC Morphology NORMAL APPEARANCE (NORMAL) Platelet Estimate NORMAL (130-450,000) (NORMAL) Platelet Morphology NORMAL APPEARANCE (NORMAL) RBC Morph Micro Appear NORMAL APPEARANCE (NORMAL) PT (9.9-12.6) secs INR (0.8-1.2) Sodium 136 (135-145) mmol/L Potassium 5.9 H (3.5-5.0) mmol/L Chloride 112 H (101-111) mmol/L Carbon Dioxide 15 L (21-32) mmol/L Anion Gap 9.0 (6-13) BUN 33 H (6-20) mg/dL Creatinine 2.7 H (0.6-1.2) mg/dL Estimated GFR (MDRD) 29 L (>89) Glucose 151 H (70-100) mg/dL POC Whole Bld Glucose 144 H (70 - 100) mg/dL Lactic Acid (0.5-2.2) mmol/L Calcium 7.2 L (8.5-10.3) mg/dL Magnesium (1.7-2.8) mg/dL Total Bilirubin 0.9 (0.2-1.0) mg/dL Direct Bilirubin (0.1-0.5) mg/dL AST 67 H (10-42) IU/L ALT 88 H (10-60) IU/L Alkaline Phosphatase 49 (42-121) IU/L Total Protein 5.2 L (6.7-8.2) g/dL Albumin 2.6 L (3.2-5.5) g/dL Globulin 2.6 (2.1-4.2) g/dL Albumin/Globulin Ratio 1.0 (1.0-2.2) Urine Color Urine Clarity (CLEAR) Urine pH (5.0-7.5) PH Ur Specific [place] (1.002-1.030) Urine Protein (NEGATIVE) mg/dL Urine Glucose (UA) (NEGATIVE) mg/dL Urine Ketones (NEGATIVE) mg/dL Urine Occult Blood (NEGATIVE) Urine Nitrite (NEGATIVE) Urine Bilirubin (NEGATIVE) Urine Urobilinogen (NORMAL) E.U./dL Ur Leukocyte Esterase (NEGATIVE) Urine RBC (0-5) /HPF Urine WBC (0-3) /HPF Urine WBC Clumps Ur Squamous Epith Cells (<= Few) Urine Bacteria (None Seen) /HPF Nasal Screen MRSA (PCR) (NEGATIVE) 04/15/21 04/15/21 Range/Units 23:38 22:56 WBC (4.8-10.8) x10^3/uL RBC (4.70-6.10) 10^6/uL Hgb (14.0-18.0) g/dL Hct (42.0-52.0) % MCV (80.0-94.0) fL MCH (27.0-31.0) pg MCHC (32.0-36.0) g/dL RDW (12.0-15.0) % Plt Count (130-450) 10^3/uL MPV (7.4-11.4) fL Neut # (Auto) Lymph # (Auto) [place] # (Auto) Eos # (Auto) Baso # (Auto) Absolute Nucleated RBC Total Counted Band Neuts % (Manual) (0 - 10) % Abnorm Lymph % (Manual) % Nucleated RBC % Neutrophils # (Manual) (1.5-6.6) 10^3/uL Lymphocytes # (Manual) (1.5-3.5) 10^3/uL Monocytes # (Manual) (0.0-1.0) 10^3/uL Eosinophils # (Manual) (0-0.7) 10^3/uL Basophils # (Manual) (0-0.1) 10^3/uL Differential Comment WBC Morphology (NORMAL) Platelet Estimate (NORMAL) Platelet Morphology (NORMAL) RBC Morph Micro Appear (NORMAL) PT (9.9-12.6) secs INR (0.8-1.2) Sodium (135-145) mmol/L Potassium (3.5-5.0) mmol/L Chloride (101-111) mmol/L Carbon Dioxide (21-32) mmol/L Anion Gap (6-13) BUN (6-20) mg/dL Creatinine (0.6-1.2) mg/dL Estimated GFR (MDRD) (>89) Glucose (70-100) mg/dL POC Whole Bld Glucose (70 - 100) mg/dL Lactic Acid 4.8 H* (0.5-2.2) mmol/L Calcium (8.5-10.3) mg/dL Magnesium (1.7-2.8) mg/dL Total Bilirubin (0.2-1.0) mg/dL Direct Bilirubin (0.1-0.5) mg/dL AST (10-42) IU/L ALT (10-60) IU/L Alkaline Phosphatase (42-121) IU/L Total Protein (6.7-8.2) g/dL Albumin (3.2-5.5) g/dL Globulin (2.1-4.2) g/dL Albumin/Globulin Ratio (1.0-2.2) Urine Color Urine Clarity (CLEAR) Urine pH (5.0-7.5) PH Ur Specific [place] (1.002-1.030) Urine Protein (NEGATIVE) mg/dL Urine Glucose (UA) (NEGATIVE) mg/dL Urine Ketones (NEGATIVE) mg/dL Urine Occult Blood (NEGATIVE) Urine Nitrite (NEGATIVE) Urine Bilirubin (NEGATIVE) Urine Urobilinogen (NORMAL) E.U./dL Ur Leukocyte Esterase (NEGATIVE) Urine RBC (0-5) /HPF Urine WBC (0-3) /HPF Urine WBC Clumps Ur Squamous Epith Cells (<= Few) Urine Bacteria (None Seen) /HPF Nasal Screen MRSA (PCR) NEGATIVE (NEGATIVE) Sepsis Event Note (H) - Evaluation Current Stage of Sepsis: Ruled out Assessment/Plan - Problem List (1) Crohn's disease Impression: history 3 surgeries for crohns. no stoma output for 2 days and progressive abdominal pain for 2 days. stoma is swollen and dusky; however currently warm, not history, exam, vitals, labs all concerning additional surgery, exploration, bowel resection may be needed very soon, ie today. ideally he should be transferred to a hospital that offers a higher level of care and has surgeons/ a team experienced in caring for patients with inflammatory bowel disease. this is discussed with him and his medical doctor here. the medical team has been working on transfer since early am today. if transfer is not possible and he is getting progressively more ill plan surgery today on [place] discussed with [facility] surgery resident who will discuss this with attending IBD surgeon. Qualifiers: Gastrointestinal tract location: small and large intestine Digestive d isease complication type: with intestinal obstruction Qualified Code(s): K50.812 - Crohn's disease of both small and large intestine with intestinal obstruction
--- NOTE | 2021-04-16 13:07 | DISCHARGE SUMMARY ---
"Discharge Summary Admit Date: 04/15/21 Discharge Date: 04/16/21 Discharging Provider: Omi Moses Primary Care Provider: Sabina Pennington Code Status: Attempt Resuscitation Condition at Discharge: Critical Discharge Disposition: 02 Transfer Acute Care Hosp Discharge Facility Name: [facility] - DIAGNOSES Admission Diagnoses: Small bowel obstruction Crohn's disease Discharge Diagnoses with Status of Each Condition: Septic shock - ongoing. Small bowel obstruction - ongoing. Suspected ischemic bowel - ongoing. Acute kidney injury - ongoing. Metabolic acidosis - ongoing. Crohn's disease - stable. - HPI History of Present Illness: 25 year old male with a history of Chrohn's disease with ileostomy presented to ED today for evaluation of abdominal pain. He reports that the pain began yesterday around 1100 am. He took some of his previously prescribed dilaudid which helped until he began vomiting this morning around 0600 am. His last episode of emesis was about 20 minutes ago. He reports that his ostomy has only put out 100 ccs since 1100 yesterday which is significantly less than usual. The consistency has been more liquid than usual. He denies any blood in his vomit or stool. He denies any fever, chills, weight loss or recent illness. He has not ea ten since the pain started. He has a history of small bowel obstructions and has had 3 in the past month. His most recent one was 03/23/2021 where he was admitted for one week. An NG tube was placed and he underwent a 10 day course of steroids with a taper. No surgery. Presently, he reports severe, sharp, crampy abdominal pain and says that this feels similar to episodes he has had in the past. He is afebrile, heart rate 87, respirations 16, blood pressure 123/71, WBC 17.6 in the ED. He reports experiencing GI issues since 8th grade. He has a colonic perforation in 2018 and underwent a total pancolectomy at this time. He had a cdif infection during this admission. He has been on Entyvio since 2019, he gets it every 6 weeks and his last dose was 1.5 weeks ago. He had an ileostomy procedure in August [address] María Arellano. He denies any issues with his ostomy or any infections. He is followed by GI Dr. Maikol Pierson at [facility]. His most recent visit with him was last week where he was referred to surgery. He reports that nothing came of this. - CONSULTS | PROCEDURES Consultations: General Surgery - HOSPITAL COURSE Hospital Course: Patient was initially admitted to the floor for a small bowel obstruction. He was previously admitted 2 weeks ago for similar presentation which was managed conservatively. We spoke with GI on-call at [facility] who recommended steroids and to check a fecal calprotectin to evaluate for potential failure of the Entyvio. The patient was started on Solu-Medrol 60 mg IV twice daily. He was made n.p.o. and NG tube was placed. His pain was managed with Dilaudid and Toradol which was later discontinued due to the acute kidney injury. Later that evening, he became hypotensive with systolic in the 70s. Repeat labs were obtained which showed acute kidney injury as his creatinine was now nearly 3 when it was 1.0 on admission. His lactic acid is also elevated at 4.8. He was also hyperkalemic which was treated with insulin and dextrose. He was given further IV fluids with multiple boluses of normal saline. He has received a total of 7 L of fluid since admission. He was started on cefepime and Flagyl IV empirically. He was transferred to the ICU as he required norepinephrine to maintain mean arterial pressure greater than [address] scan was obtained the following morning given the patient had worsening abdominal pain. This continued to show persistent small bowel obstruction with increased ascites but no evidence of perforation. General surgery was asked to evaluate the patient again as the concern was for ischemic bowel given the elevated lactic acid and his ongoing pain. General surgery felt he would be best suited at a higher level of care and that he would require surgical intervention and felt given his history of Crohn's and subtotal colectomy with ileostomy that this would be best done at another facility. I called [facility] in [place] where the patient's logger is but unfortunately not have any ICU beds. He was placed on the wait list there. I also called [facility] in [place] but they had no beds. [facility] also had no beds. I initially called [facility] but there was no answer and so I left a message. I spoke with [facility] who had no beds. I then called [facility] who found a potential bed at [facility] although this would not be guaranteed and would not be available for a few hours. I spoke with the database administration project manager there who asked me to call [facility] as he felt the patient would likely benefit from their facility. I spoke with [facility] again and I spoke with the on-call resident to discuss the patient's clinical condition. They then spoke with our general surgeon on-call, Dr. Abreu, and after their discussion, the patient was lillian clements accepted in transfer by Dr. Amparo Olmos. I also spoke with the database administration project manager, Dr. Ham Goodman. Although there is concern for ischemic bowel, general surgery felt that the patient will be able to tolerate the transfer and that it would be best for him to have surgical intervention at [facility] rather than intervention here followed by transfer later on. The patient and his grandmother were updated on the plan and course of treatment and they are both in agreement with it. The patient is currently seeing cefepime 1 g IV twice daily as well as Flagyl 500 mg IV every 8. He is also receiving lactated Ringer's at 150 mL an hour. He is on norepinephrine at 10 mcg a minute which is down from 18 mcg a minute as we have been titrating this down. The latest lactic acid 11:30 AM is down to 3 .3 from 4.4 at 8:30 AM. - ALLERGIES Allergies/Adverse Reactions: Allergies Allergy/AdvReac Type Severity Reaction Status Date / Time amoxicillin [From Augmentin] Allergy Hives Verified 04/15/21 07:38 clavulanic acid Allergy Hives Verified 04/15/21 07:38 [From Augmentin] - MEDICATIONS Home Medications: Ambulatory Orders Medication Instructions Recorded Confirmed Multivitamin [Multivitamins] 1 tab.chew PO DAILY 09/06/19 04/15/21 HYDROmorphone [Dilaudid] 2 mg PO Q6HR PRN 09/10/20 04/15/21 Vedolizumab [Entyvio] 300 mg IV .Q6W 03/23/21 04/15/21 - PHYSICAL EXAM AT DISCHARGE General Appearance: positive: Moderate distress Eyes Bilateral: positive: Conjunctivae nml ENT: positive: ENT inspection nml, Other (NG tube in place.) Neck: positive: Nml inspection Respiratory: positive: No respiratory distress, Other (Tachypnic.). negative: Wheezes, Rales Cardiovascular: positive: Tachycardia. negative: Irregularly irregular, Systolic murmur Abdomen: positive: No distention, Tenderness, Guarding, Rebound, Abnml bowel sounds (Hypoactive.), Other (Prior ex lap incision noted. Stoma appears dusky) Skin: positive: Warm, Dry Extremities: positive: No pedal edema Neurologic/Psychiatric: positive: Motor nml. negative: Disoriented to person, Disoriented to place Physical Exam Other/Comments: Vital Signs - 24 hr 04/15/21 04/15/21 04/15/21 16:27 21:00 21:40 Temperature 36.3 C L 36.8 C 36.3 C L Heart Rate [ 135 H 139 H 120 H Brachial] Heart Rate [ Monitoring electrodes] Respiratory 22 19 18 Rate Blood Pressure 117/73 [Left Brachial artery] Blood Pressure 71/35 L 67/50 L [right brachial ] O2 Saturation 98 98 04/15/21 04/15/21 04/15/21 21:46 22:52 23:00 Temperature 37.4 C Heart Rate [ 119 H 139 H 137 H Brachial] Heart Rate [ Monitoring electrodes] Respiratory 13 18 Rate Blood Pressure [Left Brachial artery] Blood Pressure 77/52 L 82/48 L 70/51 L [right brachial ] O2 Saturation 96 97 04/15/21 04/16/21 04/16/21 23:51 00:00 00:05 Temperature Heart Rate [ 121 H 121 H Brachial] Heart Rate [ 121 H 121 H Monitoring electrodes] Respiratory 13 18 Rate Blood Pressure [Left Brachial artery] Blood Pressure 87/68 L 82/57 L 86/48 L [right brachial ] O2 Saturation 97 97 04/16/21 04/16/21 04/16/21 00:10 00:15 00:20 Temperature Heart Rate [ 125 H Brachial] Heart Rate [ 125 H 123 H 117 H Monitoring electrodes] Respiratory 16 13 14 Rate Blood Pressure [Left Brachial artery] Blood Pressure 99/67 95/54 L 95/65 [right brachial ] O2 Saturation 98 100 99 04/16/21 04/16/21 04/16/21 01:00 02:00 03:00 Temperature Heart Rate [ Brachial] Heart Rate [ 98 110 H 108 H Monitoring electrodes] Respiratory 12 10 L 10 L Rate Blood Pressure 107/61 [Left Brachial artery] Blood Pressure 96/57 L 87/58 L [right brachial ] O2 Saturation 99 96 97 04/16/21 04/16/21 04/16/21 04:00 05:00 06:00 Temperature 36.6 C Heart Rate [ Brachial] Heart Rate [ 112 H 117 H 106 H Monitoring electrodes] Respiratory 13 13 15 Rate Blood Pressure [Left Brachial artery] Blood Pressure 87/72 L 86/45 L 88/62 L [right brachial ] O2 Saturation 98 97 98 04/16/21 04/16/21 04/16/21 07:00 07:15 07:30 Temperature Heart Rate [ Brachial] Heart Rate [ 110 H 113 H 120 H Monitoring electrodes] Respiratory 13 13 17 Rate Blood Pressure [Left Brachial artery] Blood Pressure 100/67 106/66 109/71 [right brachial ] O2 Saturation 96 98 99 04/16/21 04/16/21 04/16/21 07:45 08:00 08:15 Temperature Heart Rate [ Brachial] Heart Rate [ 115 H 105 H 108 H Monitoring electrodes] Respiratory 16 11 L 99 H Rate Blood Pressure [Left Brachial artery] Blood Pressure 126/103 H 117/73 115/77 [right brachial ] O2 Saturation 98 98 18 L 04/16/21 04/16/21 04/16/21 08:20 08:30 08:45 Temperature Heart Rate [ Brachial] Heart Rate [ 106 H 125 H 105 H Monitoring electrodes] Respiratory 14 24 11 L Rate Blood Pressure [Left Brachial artery] Blood Pressure 118/73 104/61 117/73 [right brachial ] O2 Saturation 98 98 98 04/16/21 04/16/21 04/16/21 09:00 09:15 09:30 Temperature Heart Rate [ Brachial] Heart Rate [ 115 H 114 H 110 H Monitoring electrodes] Respiratory 18 13 13 Rate Blood Pressure [Left Brachial artery] Blood Pressure 108/77 114/76 106/84 H [right brachial ] O2 Saturation 98 96 97 04/16/21 04/16/21 04/16/21 09:45 10:00 10:15 Temperature Heart Rate [ Brachial] Heart Rate [ 114 H 137 H 115 H Monitoring electrodes] Respiratory 11 L 17 14 Rate Blood Pressure [Left Brachial artery] Blood Pressure 116/73 103/60 121/71 [right brachial ] O2 Saturation 97 97 98 04/16/21 04/16/21 04/16/21 10:30 11:00 11:15 Temperature Heart Rate [ Brachial] Heart Rate [ 117 H 123 H 122 H Monitoring electrodes] Respiratory 15 14 11 L Rate Blood Pressure [Left Brachial artery] Blood Pressure 120/77 126/77 116/78 [right brachial ] O2 Saturation 99 97 98 04/16/21 04/16/21 04/16/21 11:30 11:45 12:00 Temperature Heart Rate [ Brachial] Heart Rate [ 120 H 118 H 119 H Monitoring electrodes] Respiratory 14 20 11 L Rate Blood Pressure [Left Brachial artery] Blood Pressure 114/74 110/83 H 103/63 [right brachial ] O2 Saturation 97 97 97 04/16/21 04/16/21 04/16/21 12:15 12:30 12:45 Temperature Heart Rate [ Brachial] Heart Rate [ 135 H 127 H 136 H Monitoring electrodes] Respiratory 19 26 H 31 H Rate Blood Pressure [Left Brachial artery] Blood Pressure 124/72 114/74 135/99 H [right brachial ] O2 Saturation 98 18 L 98 04/16/21 04/16/21 04/16/21 13:00 13:15 13:30 Temperature Heart Rate [ Brachial] Heart Rate [ 122 H 120 H 128 H Monitoring electrodes] Respiratory 20 10 L 21 Rate Blood Pressure [Left Brachial artery] Blood Pressure 111/64 110/85 H 101/75 [right brachial ] O2 Saturation 99 96 98 04/16/21 14:04 Temperature Heart Rate [ Brachial] Heart Rate [ 121 H Monitoring electrodes] Respiratory 13 Rate Blood Pressure [Left Brachial artery] Blood Pressure 108/80 [right brachial ] O2 Saturation 96 Oxygen O2 Source Room air - LABS Result Diagrams: 04/16/21 04:40 04/16/21 08:30 Other Lab Results: Laboratory Tests 04/15/21 04/15/21 04/15/21 07:48 07:48 08:09 WBC 17.8 H RBC 5.42 Hgb 15.3 Hct 45.1 MCV 83.2 MCH 28.2 MCHC 33.9 RDW 13.9 Plt Count 231 MPV 9.3 Neut # (Auto) 16.0 H Lymph # (Auto) 1.1 L [place] # (Auto) 0.6 Eos # (Auto) 0.0 Baso # (Auto) 0.1 Absolute Nucleated RBC 0.00 Total Counted Band Neuts % (Manual) Abnorm Lymph % (Manual) Nucleated RBC % 0.0 Neutrophils # (Manual) Lymphocytes # (Manual) Monocytes # (Manual) Eosinophils # (Manual) Basophils # (Manual) Differential Comment WBC Morphology Platelet Estimate Platelet Morphology RBC Morph Micro Appear PT INR Sodium 136 Potassium 3.6 Chloride 101 Carbon Dioxide 22 Anion Gap 13.0 BUN 15 Creatinine 1.0 Estimated GFR (MDRD) 93 Glucose 131 H POC Whole Bld Glucose Lactic Acid Calcium 9.5 Magnesium 1.9 Total Bilirubin 1.7 H Direct Bilirubin AST 18 ALT 20 Alkaline Phosphatase 67 Total Protein 8.1 Albumin 4.5 Globulin 3.6 Albumin/Globulin Ratio 1.3 Lipase 36 Urine Color Urine Clarity Urine pH Ur Specific [place] Urine Protein Urine Glucose (UA) Urine Ketones Urine Occult Blood Urine Nitrite Urine Bilirubin Urine Urobilinogen Ur Leukocyte Esterase Urine RBC Urine WBC Urine WBC Clumps Ur Squamous Epith Cells Urine Bacteria Nasal Screen MRSA (PCR) SARS-CoV-2 (PCR) NOT DETECTED 04/15/21 04/15/21 04/15/21 22:56 23:38 23:38 WBC 34.3 H RBC 5.97 Hgb 16.7 Hct 50.9 MCV 85.3 MCH 28.0 MCHC 32.8 RDW 14.3 Plt Count 257 MPV 9.9 Neut # (Auto) Not Reportable Lymph # (Auto) Not Reportable [place] # (Auto) Not Reportable Eos # (Auto) Not Reportable Baso # (Auto) Not Reportable Absolute Nucleated RBC Not Reportable Total Counted 100 Band Neuts % (Manual) 8 Abnorm Lymph % (Manual) 0 Nucleated RBC % Not Reportable Neutrophils # (Manual) 28.8 H Lymphocytes # (Manual) 4.1 H Monocytes # (Manual) 1.4 H Eosinophils # (Manual) 0.0 Basophils # (Manual) 0.0 Differential Comment MANUAL DIFFERENTIAL WBC Morphology NORMAL APPEARANCE Platelet Estimate NORMAL (130-450,000) Platelet Morphology NORMAL APPEARANCE RBC Morph Micro Appear NORMAL APPEARANCE PT INR Sodium Potassium Chloride Carbon Dioxide Anion Gap BUN Creatinine Estimated GFR (MDRD) Glucose POC Whole Bld Glucose Lactic Acid 4.8 H* Calcium Magnesium Total Bilirubin Direct Bilirubin AST ALT Alkaline Phosphatase Total Protein Albumin Globulin Albumin/Globulin Ratio Lipase Urine Color Urine Clarity Urine pH Ur Specific [place] Urine Protein Urine Glucose (UA) Urine Ketones Urine Occult Blood Urine Nitrite Urine Bilirubin Urine Urobilinogen Ur Leukocyte Esterase Urine RBC Urine WBC Urine WBC Clumps Ur Squamous Epith Cells Urine Bacteria Nasal Screen MRSA (PCR) NEGATIVE SARS-CoV-2 (PCR) 04/15/21 04/16/21 04/16/21 23:57 00:25 04:40 WBC 32.3 H RBC 6.02 Hgb 16.9 Hct 51.3 MCV 85.2 MCH 28.1 MCHC 32.9 RDW 14.6 Plt Count 291 MPV 9.9 Neut # (Auto) Not Reportable Lymph # (Auto) Not Reportable [place] # (Auto) Not Reportable Eos # (Auto) Not Reportable Baso # (Auto) Not Reportable Absolute Nucleated RBC Not Reportable Total Counted 100 Band Neuts % (Manual) 15 H Abnorm Lymph % (Manual) 0 Nucleated RBC % Not Reportable Neutrophils # (Manual) 26.8 H Lymphocytes # (Manual) 3.2 Monocytes # (Manual) 2.3 H Eosinophils # (Manual) 0.0 Basophils # (Manual) 0.0 Differential Comment MANUAL DIFFERENTIAL WBC Morphology NORMAL APPEARANCE Platelet Estimate NORMAL (130-450,000) Platelet Morphology NORMAL APPEARANCE RBC Morph Micro Appear NORMAL APPEARANCE PT INR Sodium 136 Potassium 5.9 H Chloride 112 H Carbon Dioxide 15 L Anion Gap 9.0 BUN 33 H Creatinine 2.7 H Estimated GFR (MDRD) 29 L Glucose 151 H POC Whole Bld Glucose 144 H Lactic Acid Calcium 7.2 L Magnesium Total Bilirubin 0.9 Direct Bilirubin AST 67 H ALT 88 H Alkaline Phosphatase 49 Total Protein 5.2 L Albumin 2.6 L Globulin 2.6 Albumin/Globulin Ratio 1.0 Lipase Urine Color Urine Clarity Urine pH Ur Specific [place] Urine Protein Urine Glucose (UA) Urine Ketones Urine Occult Blood Urine Nitrite Urine Bilirubin Urine Urobilinogen Ur Leukocyte Esterase Urine RBC Urine WBC Urine WBC Clumps Ur Squamous Epith Cells Urine Bacteria Nasal Screen MRSA (PCR) SARS-CoV-2 (PCR) 04/16/21 04/16/21 04/16/21 04:40 04:40 08:30 WBC RBC Hgb Hct MCV MCH MCHC RDW Plt Count MPV Neut # (Auto) Lymph # (Auto) [place] # (Auto) Eos # (Auto) Baso # (Auto) Absolute Nucleated RBC Total Counted Band Neuts % (Manual) Abnorm Lymph % (Manual) Nucleated RBC % Neutrophils # (Manual) Lymphocytes # (Manual) Monocytes # (Manual) Eosinophils # (Manual) Basophils # (Manual) Differential Comment WBC Morphology Platelet Estimate Platelet Morphology RBC Morph Micro Appear PT INR Sodium 136 Potassium 5.8 H Chloride 110 Carbon Dioxide 16 L Anion Gap 10.0 BUN 37 H Creatinine 2.8 H Estimated GFR (MDRD) 28 L Glucose 158 H POC Whole Bld Glucose Lactic Acid 3.6 H* 4.4 H* Calcium 7.9 L Magnesium 2.7 Total Bilirubin Direct Bilirubin AST ALT Alkaline Phosphatase Total Protein Albumin Globulin Albumin/Globulin Ratio Lipase Urine Color Urine Clarity Urine pH Ur Specific [place] Urine Protein Urine Glucose (UA) Urine Ketones Urine Occult Blood Urine Nitrite Urine Bilirubin Urine Urobilinogen Ur Leukocyte Esterase Urine RBC Urine WBC Urine WBC Clumps Ur Squamous Epith Cells Urine Bacteria Nasal Screen MRSA (PCR) SARS-CoV-2 (PCR) 04/16/21 04/16/21 04/16/21 08:30 08:30 11:20 WBC RBC Hgb Hct MCV MCH MCHC RDW Plt Count MPV Neut # (Auto) Lymph # (Auto) [place] # (Auto) Eos # (Auto) Baso # (Auto) Absolute Nucleated RBC Total Counted Band Neuts % (Manual) Abnorm Lymph % (Manual) Nucleated RBC % Neutrophils # (Manual) Lymphocytes # (Manual) Monocytes # (Manual) Eosinophils # (Manual) Basophils # (Manual) Differential Comment WBC Morphology Platelet Estimate Platelet Morphology RBC Morph Micro Appear PT 17.6 H INR 1.6 H Sodium 136 Potassium 5.0 Chloride 107 Carbon Dioxide 16 L Anion Gap 13.0 BUN 41 H Creatinine 3.1 H Estimated GFR (MDRD) 25 L Glucose 213 H POC Whole Bld Glucose Lactic Acid 3.3 H* Calcium 7.7 L Magnesium Total Bilirubin 0.8 Direct Bilirubin 0.2 AST 230 H ALT 311 H Alkaline Phosphatase 45 Total Protein 5.0 L Albumin 2.5 L Globulin 2.5 Albumin/Globulin Ratio Lipase Urine Color Urine Clarity Urine pH Ur Specific [place] Urine Protein Urine Glucose (UA) Urine Ketones Urine Occult Blood Urine Nitrite Urine Bilirubin Urine Urobilinogen Ur Leukocyte Esterase Urine RBC Urine WBC Urine WBC Clumps Ur Squamous Epith Cells Urine Bacteria Nasal Screen MRSA (PCR) SARS-CoV-2 (PCR) 04/16/21 04/16/21 11:50 Unknown WBC RBC Hgb Hct MCV MCH MCHC RDW Plt Count MPV Neut # (Auto) Lymph # (Auto) [place] # (Auto) Eos # (Auto) Baso # (Auto) Absolute Nucleated RBC Total Counted Band Neuts % (Manual) Abnorm Lymph % (Manual) Nucleated RBC % Neutrophils # (Manual) Lymphocytes # (Manual) Monocytes # (Manual) Eosinophils # (Manual) Basophils # (Manual) Differential Comment WBC Morphology Platelet Estimate Platelet Morphology RBC Morph Micro Appear PT INR Sodium Potassium Chloride Carbon Dioxide Anion Gap BUN Creatinine Estimated GFR (MDRD) Glucose POC Whole Bld Glucose 132 H Lactic Acid Calcium Magnesium Total Bilirubin Direct Bilirubin AST ALT Alkaline Phosphatase Total Protein Albumin Globulin Albumin/Globulin Ratio Lipase Urine Color YELLOW Urine Clarity HAZY Urine pH 5.0 Ur Specific [place] >=1.030 H Urine Protein 30 H Urine Glucose (UA) NEGATIVE Urine Ketones TRACE Urine Occult Blood MODERATE H Urine Nitrite NEGATIVE Urine Bilirubin NEGATIVE Urine Urobilinogen 0.2 (NORMAL) Ur Leukocyte Esterase NEGATIVE Urine RBC 6-10 H Urine WBC 6-10 H Urine WBC Clumps PRESENT Ur Squamous Epith Cells FEW Squamous Urine Bacteria Few Nasal Screen MRSA (PCR) SARS-CoV-2 (PCR) - DIAGNOSTIC IMAGING Diagnostic Imaging Results: Final report reviewed Diagnostic Imaging Results Comments: CT of the abdomen pelvis without contrast on April 16 showed continued high- grade small bowel obstruction. The degree of small bowel dilatation is worse on the current study than on the examination on the previous day. Transition point is not identified. Increased phlegm of ascites compared to the prior. No free air is seen. Small bilateral pleural effusions are now seen. Status post subtotal colectomy, with a right lower quadrant ostomy. - SEPSIS Current Stage of Sepsis: Septic shock Possible source of Sepsis: GI tract/intra-abdominal Sepsis Criteria: Recorded Heart Rate greater than 90 bpm, Recorded Respiratory Rate greater than 20, WBC count greater than 10% bands, WBC count greater than 12,000 or less than 4000, SBP drop more than 40mHg, MAP less than 65 mmHg, SBP less than 90 mmHg, Renal: urine output less than 0.5ml/kg/hr for 2 hours or creatinine gr, Metabolic: lactate > 2 mmol/L - TIME SPENT Time Spent in Discharge (Minutes): 88"
[2021-04-16] MEDS ORDERED: LORazepam 2 MG/ML VIAL IVP STA (13:57)
[2021-04-16] MEDS ORDERED: HYDROmorphone 2 MG/ML VIAL IVP PRN (14:00)
[2021-04-16 14:22] VITALS: BP 113/78
[2021-04-16] MEDS: ONDANSETRON 4 MG/2 ML VIAL IVP PRN (14:27)
== END 2021-04-16 15:00 | disposition short-term general hospital (02) | DRG 385 ==
LOC: ED 07:28 → MS2 10:42 → ICU 22:35
PROVIDERS: ADMIT Internal Medicine; ATTEND Internal Medicine
PROC: 02HV33Z Insertion of Infusion Device into Superior Vena Cava, Percutaneous Approach (ICD-10-PCS; principal; 2021-04-16)
DX: K50.812 Crohn's disease of both small and large intestine with intestinal obstruction (principal); A41.9 Sepsis, unspecified organism; R65.21 Severe sepsis with septic shock; N17.9 Acute kidney failure, unspecified; K55.9 Vascular disorder of intestine, unspecified; E87.2 Acidosis; E87.5 Hyperkalemia; F32.A Depression, unspecified; F41.9 Anxiety disorder, unspecified; Z20.822 Contact with and (suspected) exposure to COVID-19; Z83.79 Family history of other diseases of the digestive system; Z88.0 Allergy status to penicillin; Z88.8 Allergy status to other drugs, medicaments and biological substances; Z90.49 Acquired absence of other specified parts of digestive tract; Z93.2 Ileostomy status
CPT/HCPCS: 36415; 74018; 74176; 74177; 80048; 80053; 80076; 81001; 83605; 83690; 83735; 85025; 85610; 87040; 87150; 87635; A9270; J1170; J1650; J1815; J2060; J2765; J7120; Q9967; 83993; 96374; 96375; 96376; 99285

== ENCOUNTER 2021-05-04 15:50 | Outpatient (CLI) | payer OTHER, BC ==
[2021-05-04 17:29] LABS: BASOPHILS # (AUTO) 0.1 10^3/uL (0.0-0.1); BASOPHILS % (AUTO) 0.7 %; EOSINOPHILS # (AUTO) 0.1 10^3/uL (0.0-0.7); EOSINOPHILS % (AUTO) 0.7 %; HCT - HEMATOCRIT 30.4 % (42.0-52.0); HGB - HEMOGLOBIN 9.6 g/dL (14.0-18.0); LYMPHOCYTES # (AUTO) 2.2 10^3/uL (1.5-3.5); LYMPHOCYTES % (AUTO) 19.5 %; MEAN CORPUSCULAR HEMOGLOBIN 27.2 pg (27.0-31.0); MEAN CORPUSCULAR HGB CONC 31.6 g/dL (32.0-36.0); MEAN CORPUSCULAR VOLUME 86.1 fL (80.0-94.0); MEAN PLATELET VOLUME 8.8 fL (7.4-11.4); MONOCYTES # (AUTO) 0.9 10^3/uL (0.0-1.0); MONOCYTES % (AUTO) 7.7 %; NEUTROPHILS % (AUTO) 70.3 %; PLT - PLATELET COUNT 630 10^3/uL (130-450); RED BLOOD COUNT 3.53 10^6/uL (4.70-6.10); RED CELL DISTRIBUTION WIDTH 14.8 % (12.0-15.0); WHITE BLOOD COUNT 11.4 x10^3/uL (4.8-10.8)
[2021-05-04 17:45] LABS: ALBUMIN 3.1 g/dL (3.2-5.5); ALBUMIN/GLOBULIN RATIO 0.7 (1.0-2.2); ALKALINE PHOSPHATASE 232 IU/L (42-121); ALT ALANINE AMINOTRANSFERASE 31 IU/L (10-60); AST ASPARTATE AMINOTRANSFERASE 24 IU/L (10-42); BILIRUBIN,TOTAL 0.4 mg/dL (0.2-1.0); BUN - BLOOD UREA NITROGEN 31 mg/dL (6-20); CALCIUM 8.9 mg/dL (8.5-10.3); CARBON DIOXIDE - CO2 22 mmol/L (21-32); CHLORIDE 97 mmol/L (101-111); CREATININE 0.8 mg/dL (0.6-1.2); GFR - MDRD 120 (>89); GLUCOSE 88 mg/dL (70-100); MAGNESIUM 1.8 mg/dL (1.7-2.8); POTASSIUM 4.1 mmol/L (3.5-5.0); SODIUM 130 mmol/L (135-145); TOTAL PROTEIN 7.5 g/dL (6.7-8.2); TRIGLYCERIDES 86 mg/dL
[2021-05-04 18:06] LABS: CRP - C-REACTIVE PROTEIN < 1.0 mg/dL (0-1.0)
== END 2021-05-04 23:59 | disposition home or self-care (01) ==
LOC: LAB.R 15:50
PROVIDERS: ATTEND Surgery
DX: K50.90 Crohn's disease, unspecified, without complications (principal); K91.2 Postsurgical malabsorption, not elsewhere classified
CPT/HCPCS: 80053; 83735; 84100; 84478; 85025; 86140

== ENCOUNTER 2021-05-10 15:41 | Outpatient (CLI) | payer OTHER, BC ==
[2021-05-10 16:32] LABS: BASOPHILS # (AUTO) 0.1 10^3/uL (0.0-0.1); EOSINOPHILS # (AUTO) 0.3 10^3/uL (0.0-0.7); EOSINOPHILS % (AUTO) 3.8 %; HCT - HEMATOCRIT 31.7 % (42.0-52.0); HGB - HEMOGLOBIN 10.1 g/dL (14.0-18.0); LYMPHOCYTES % (AUTO) 25.1 %; MEAN CORPUSCULAR HEMOGLOBIN 27.2 pg (27.0-31.0); MEAN CORPUSCULAR HGB CONC 31.9 g/dL (32.0-36.0); MEAN CORPUSCULAR VOLUME 85.2 fL (80.0-94.0); MEAN PLATELET VOLUME 9.4 fL (7.4-11.4); MONOCYTES # (AUTO) 0.5 10^3/uL (0.0-1.0); MONOCYTES % (AUTO) 5.9 %; NEUTROPHILS % (AUTO) 63.4 %; PLT - PLATELET COUNT 416 10^3/uL (130-450); RED BLOOD COUNT 3.72 10^6/uL (4.70-6.10); RED CELL DISTRIBUTION WIDTH 14.6 % (12.0-15.0); WHITE BLOOD COUNT 7.9 x10^3/uL (4.8-10.8)
[2021-05-10 16:46] LABS: ALBUMIN 3.6 g/dL (3.2-5.5); BILIRUBIN,TOTAL 0.3 mg/dL (0.2-1.0); CALCIUM 9.1 mg/dL (8.5-10.3); CREATININE 0.8 mg/dL (0.6-1.2); MAGNESIUM 1.9 mg/dL (1.7-2.8); POTASSIUM 3.8 mmol/L (3.5-5.0); TOTAL PROTEIN 7.3 g/dL (6.7-8.2)
== END 2021-05-10 15:42 | disposition home or self-care (01) ==
LOC: LAB.R 15:41
PROVIDERS: ATTEND Surgery
DX: K50.90 Crohn's disease, unspecified, without complications (principal); K91.2 Postsurgical malabsorption, not elsewhere classified
CPT/HCPCS: 80053; 83735; 84100; 85025

== ENCOUNTER 2021-05-17 15:23 | Outpatient (CLI) | payer OTHER, BC ==
[2021-05-17 15:38] LABS: BASOPHILS % (AUTO) 0.5 %; EOSINOPHILS # (AUTO) 0.2 10^3/uL (0.0-0.7); EOSINOPHILS % (AUTO) 3.7 %; HCT - HEMATOCRIT 33.9 % (42.0-52.0); HGB - HEMOGLOBIN 10.8 g/dL (14.0-18.0); LYMPHOCYTES # (AUTO) 1.5 10^3/uL (1.5-3.5); LYMPHOCYTES % (AUTO) 24.3 %; MEAN CORPUSCULAR HEMOGLOBIN 26.9 pg (27.0-31.0); MEAN CORPUSCULAR HGB CONC 31.9 g/dL (32.0-36.0); MEAN CORPUSCULAR VOLUME 84.5 fL (80.0-94.0); MEAN PLATELET VOLUME 10.3 fL (7.4-11.4); MONOCYTES # (AUTO) 0.4 10^3/uL (0.0-1.0); PLT - PLATELET COUNT 283 10^3/uL (130-450); RED BLOOD COUNT 4.01 10^6/uL (4.70-6.10); WHITE BLOOD COUNT 6.2 x10^3/uL (4.8-10.8)
[2021-05-17 16:00] LABS: ALBUMIN 3.6 g/dL (3.2-5.5); ALBUMIN/GLOBULIN RATIO 0.9 (1.0-2.2); BILIRUBIN,TOTAL 0.4 mg/dL (0.2-1.0); CALCIUM 9.1 mg/dL (8.5-10.3); CREATININE 0.8 mg/dL (0.6-1.2); MAGNESIUM 1.8 mg/dL (1.7-2.8); PHOSPHORUS 4.4 mg/dL (2.5-4.6); POTASSIUM 4.1 mmol/L (3.5-5.0); TOTAL PROTEIN 7.4 g/dL (6.7-8.2)
== END 2021-05-17 15:24 | disposition home or self-care (01) ==
LOC: LAB.R 15:23
PROVIDERS: ATTEND Surgery
DX: K50.90 Crohn's disease, unspecified, without complications (principal); K91.2 Postsurgical malabsorption, not elsewhere classified
CPT/HCPCS: 80053; 83735; 84100; 85025

== ENCOUNTER 2021-05-31 14:57 | Outpatient (CLI) | payer OTHER, BC ==
[2021-05-31 15:26] LABS: BASOPHILS % (AUTO) 0.5 %; EOSINOPHILS # (AUTO) 0.1 10^3/uL (0.0-0.7); EOSINOPHILS % (AUTO) 1.4 %; HCT - HEMATOCRIT 34.5 % (42.0-52.0); HGB - HEMOGLOBIN 11.2 g/dL (14.0-18.0); LYMPHOCYTES # (AUTO) 1.5 10^3/uL (1.5-3.5); LYMPHOCYTES % (AUTO) 22.9 %; MEAN CORPUSCULAR HEMOGLOBIN 27.3 pg (27.0-31.0); MEAN CORPUSCULAR HGB CONC 32.5 g/dL (32.0-36.0); MEAN CORPUSCULAR VOLUME 83.9 fL (80.0-94.0); MEAN PLATELET VOLUME 10.8 fL (7.4-11.4); MONOCYTES # (AUTO) 0.6 10^3/uL (0.0-1.0); MONOCYTES % (AUTO) 8.4 %; NEUTROPHILS # (AUTO) 4.3 10^3/uL (1.5-6.6); NEUTROPHILS % (AUTO) 66.6 %; PLT - PLATELET COUNT 243 10^3/uL (130-450); RED BLOOD COUNT 4.11 10^6/uL (4.70-6.10); RED CELL DISTRIBUTION WIDTH 12.8 % (12.0-15.0); WHITE BLOOD COUNT 6.5 x10^3/uL (4.8-10.8)
[2021-05-31 16:10] LABS: ALBUMIN 3.7 g/dL (3.2-5.5); ALBUMIN/GLOBULIN RATIO 1.1 (1.0-2.2); ALKALINE PHOSPHATASE 129 IU/L (42-121); ALT ALANINE AMINOTRANSFERASE 112 IU/L (10-60); AST ASPARTATE AMINOTRANSFERASE 47 IU/L (10-42); BILIRUBIN,TOTAL 0.8 mg/dL (0.2-1.0); BUN - BLOOD UREA NITROGEN 22 mg/dL (6-20); CALCIUM 8.9 mg/dL (8.5-10.3); CARBON DIOXIDE - CO2 24 mmol/L (21-32); CHLORIDE 104 mmol/L (101-111); CREATININE 0.8 mg/dL (0.6-1.2); CRP - C-REACTIVE PROTEIN < 1.0 mg/dL (0-1.0); GFR - MDRD 120 (>89); GLUCOSE 90 mg/dL (70-100); MAGNESIUM 1.7 mg/dL (1.7-2.8); PHOSPHORUS 4.2 mg/dL (2.5-4.6); POTASSIUM 3.7 mmol/L (3.5-5.0); SODIUM 136 mmol/L (135-145); TOTAL PROTEIN 7.1 g/dL (6.7-8.2); TRIGLYCERIDES 53 mg/dL
== END 2021-05-31 14:58 | disposition home or self-care (01) ==
LOC: LAB.R 14:57
PROVIDERS: ATTEND Surgery
DX: K50.90 Crohn's disease, unspecified, without complications (principal); K91.2 Postsurgical malabsorption, not elsewhere classified
CPT/HCPCS: 80053; 83735; 84100; 84478; 85025; 86140

== ENCOUNTER 2021-06-07 08:00 | Outpatient (CLI) | payer OTHER, BC ==
[2021-06-07 16:39] LABS: BASOPHILS # (AUTO) 0.1 10^3/uL (0.0-0.1); BASOPHILS % (AUTO) 0.9 %; EOSINOPHILS # (AUTO) 0.1 10^3/uL (0.0-0.7); EOSINOPHILS % (AUTO) 1.5 %; HCT - HEMATOCRIT 37.5 % (42.0-52.0); HGB - HEMOGLOBIN 11.7 g/dL (14.0-18.0); LYMPHOCYTES # (AUTO) 1.8 10^3/uL (1.5-3.5); MEAN CORPUSCULAR HEMOGLOBIN 26.5 pg (27.0-31.0); MEAN CORPUSCULAR HGB CONC 31.2 g/dL (32.0-36.0); MEAN CORPUSCULAR VOLUME 84.8 fL (80.0-94.0); MEAN PLATELET VOLUME 11.4 fL (7.4-11.4); MONOCYTES # (AUTO) 0.5 10^3/uL (0.0-1.0); MONOCYTES % (AUTO) 8.2 %; NEUTROPHILS # (AUTO) 3.5 10^3/uL (1.5-6.6); NEUTROPHILS % (AUTO) 59.2 %; PLT - PLATELET COUNT 277 10^3/uL (130-450); RED BLOOD COUNT 4.42 10^6/uL (4.70-6.10); RED CELL DISTRIBUTION WIDTH 12.9 % (12.0-15.0); WHITE BLOOD COUNT 5.9 x10^3/uL (4.8-10.8)
[2021-06-07 16:48] LABS: ALBUMIN 3.8 g/dL (3.2-5.5); ALBUMIN/GLOBULIN RATIO 1.1 (1.0-2.2); BILIRUBIN,TOTAL 0.7 mg/dL (0.2-1.0); CALCIUM 9.1 mg/dL (8.5-10.3); CREATININE 0.8 mg/dL (0.6-1.2); MAGNESIUM 1.6 mg/dL (1.7-2.8); PHOSPHORUS 3.7 mg/dL (2.5-4.6); POTASSIUM 3.9 mmol/L (3.5-5.0); TOTAL PROTEIN 7.2 g/dL (6.7-8.2)
== END 2021-06-07 23:59 | disposition home or self-care (01) ==
LOC: LAB.R 08:00
PROVIDERS: ATTEND Surgery
DX: K50.90 Crohn's disease, unspecified, without complications (principal); K91.2 Postsurgical malabsorption, not elsewhere classified
CPT/HCPCS: 80053; 83735; 84100; 85025

== ENCOUNTER 2021-06-13 11:45 | Outpatient (CLI) | payer OTHER, BC ==
[2021-06-14 17:11] LABS: BASOPHILS % (AUTO) 0.4 %; EOSINOPHILS # (AUTO) 0.1 10^3/uL (0.0-0.7); EOSINOPHILS % (AUTO) 1.9 %; HCT - HEMATOCRIT 37.2 % (42.0-52.0); HGB - HEMOGLOBIN 11.5 g/dL (14.0-18.0); LYMPHOCYTES # (AUTO) 1.6 10^3/uL (1.5-3.5); LYMPHOCYTES % (AUTO) 23.7 %; MEAN CORPUSCULAR HEMOGLOBIN 26.2 pg (27.0-31.0); MEAN CORPUSCULAR HGB CONC 30.9 g/dL (32.0-36.0); MEAN CORPUSCULAR VOLUME 84.7 fL (80.0-94.0); MEAN PLATELET VOLUME 10.9 fL (7.4-11.4); MONOCYTES # (AUTO) 0.6 10^3/uL (0.0-1.0); MONOCYTES % (AUTO) 8.2 %; NEUTROPHILS # (AUTO) 4.5 10^3/uL (1.5-6.6); NEUTROPHILS % (AUTO) 65.5 %; PLT - PLATELET COUNT 277 10^3/uL (130-450); RED BLOOD COUNT 4.39 10^6/uL (4.70-6.10); WHITE BLOOD COUNT 6.9 x10^3/uL (4.8-10.8)
[2021-06-14 17:18] LABS: ALBUMIN 3.8 g/dL (3.2-5.5); ALBUMIN/GLOBULIN RATIO 1.1 (1.0-2.2); BILIRUBIN,TOTAL 0.7 mg/dL (0.2-1.0); CALCIUM 9.1 mg/dL (8.5-10.3); MAGNESIUM 1.6 mg/dL (1.7-2.8); PHOSPHORUS 4.1 mg/dL (2.5-4.6); POTASSIUM 3.9 mmol/L (3.5-5.0); TOTAL PROTEIN 7.2 g/dL (6.7-8.2)
== END 2021-06-13 23:59 | disposition home or self-care (01) ==
LOC: LAB.R 11:45
PROVIDERS: ATTEND Surgery
DX: K50.90 Crohn's disease, unspecified, without complications (principal); K91.2 Postsurgical malabsorption, not elsewhere classified
CPT/HCPCS: 80053; 83735; 84100; 85025

== ENCOUNTER 2021-07-20 11:24 | Outpatient (CLI) | payer OTHER, BC ==
[2021-07-20 14:23] LABS: BASOPHILS % (AUTO) 0.6 %; EOSINOPHILS # (AUTO) 0.2 10^3/uL (0.0-0.7); EOSINOPHILS % (AUTO) 2.5 %; HCT - HEMATOCRIT 42.9 % (42.0-52.0); HGB - HEMOGLOBIN 13.2 g/dL (14.0-18.0); LYMPHOCYTES # (AUTO) 1.5 10^3/uL (1.5-3.5); LYMPHOCYTES % (AUTO) 21.6 %; MEAN CORPUSCULAR HEMOGLOBIN 25.2 pg (27.0-31.0); MEAN CORPUSCULAR HGB CONC 30.8 g/dL (32.0-36.0); MEAN PLATELET VOLUME 10.3 fL (7.4-11.4); MONOCYTES # (AUTO) 0.5 10^3/uL (0.0-1.0); MONOCYTES % (AUTO) 7.1 %; NEUTROPHILS # (AUTO) 4.6 10^3/uL (1.5-6.6); NEUTROPHILS % (AUTO) 67.9 %; PLT - PLATELET COUNT 286 10^3/uL (130-450); RED BLOOD COUNT 5.23 10^6/uL (4.70-6.10); RED CELL DISTRIBUTION WIDTH 12.8 % (12.0-15.0); WHITE BLOOD COUNT 6.8 x10^3/uL (4.8-10.8)
[2021-07-20 15:10] LABS: ALBUMIN 4.2 g/dL (3.2-5.5); BILIRUBIN,TOTAL 0.7 mg/dL (0.2-1.0); CALCIUM 9.6 mg/dL (8.5-10.3); CREATININE 1.1 mg/dL (0.6-1.2); POTASSIUM 3.9 mmol/L (3.5-5.0); TOTAL PROTEIN 8.4 g/dL (6.7-8.2)
[2021-07-20 15:12] LABS: FERRITIN 21.5 ng/mL (23.9-336.2)
[2021-07-20 15:53] LABS: FOLATE > 49.60 ng/mL (5.90 - >24.8)
== END 2021-07-20 11:25 | disposition home or self-care (01) ==
LOC: LAB.S 11:24
PROVIDERS: ATTEND Registered Nurse
DX: Z13.21 Encounter for screening for nutritional disorder (principal)
CPT/HCPCS: 36415; 80053; 82306; 82607; 82728; 82746; 83540; 83735; 84134; 84443; 84466; 85025

== ENCOUNTER 2021-09-22 08:37 | Emergency (ER) | payer OTHER, BC ==
[2021-09-22 08:51] VITALS: BP 122/71
[2021-09-22] MEDS ORDERED: lidocaine 1% 20 ML MDV SUBQ ONE (09:45)
[2021-09-22] MEDS ORDERED: BACITRACIN ZINC OINT 1 PACKET TOP STA (11:00)
--- NOTE | 2021-09-22 11:03 | ED Physician Documentation ---
PD HPI SKIN - Stated complaint Stated Complaint: L MIDDLE FINGERS - Chief complaint Chief Complaint: Laceration - History obtained from History obtained from: Patient - Additional information Additional information: The patient comes to the emergency department chief complaint of left middle finger laceration with a knife at work. He states he was putting some knives away and one of them slipped and sliced down the tip of his left middle finger. He is not sure when his last tetanus shot was, though our records indicate it was in 1999. No other complaints at this time. He has been able to move his finger without difficulty. Review of Systems Ten Systems: 10 systems reviewed and negative Constitutional: reports: Reviewed and negative Eyes: reports: Reviewed and negative Ears: reports: Reviewed and negative Nose: reports: Reviewed and negative Throat: reports: Reviewed and negative Cardiac: reports: Reviewed and negative Respiratory: reports: Reviewed and negative GI: reports: Reviewed and negative : reports: Reviewed and negative Skin: reports: Laceration (s) Musculoskeletal: reports: Reviewed and negative Neurologic: reports: Reviewed and negative Psychiatric: reports: Reviewed and negative Endocrine: reports: Reviewed and negative Immunocompromised: reports: Reviewed and negative PD PAST MEDICAL HISTORY - Past Medical History Cardiovascular: None Respiratory: None Neuro: None Endocrine/Autoimmune: None GI: C.difficile (2018), Crohn's disease : None HEENT: None Psych: Depression, Anxiety Musculoskeletal: None Derm: None - Past Surgical History Past Surgical History: Yes General: Bowel surgery, Other - Present Medications Home Medications: Ambulatory Orders Medication Instructions Recorded Confirmed Multivitamin [Multivitamins] 1 tab.chew PO DAILY 09/06/19 04/15/21 HYDROmorphone [Dilaudid] 2 mg PO Q6HR PRN 09/10/20 04/15/21 Vedolizumab [Entyvio] 300 mg IV .Q6W 03/23/21 04/15/21 - Allergies Allergies/Adverse Reactions: Allergies Allergy/AdvReac Type Severity Reaction Status Date / Time amoxicillin [From Augmentin] Allergy Hives Verified 09/22/21 08:51 clavulanic acid Allergy Hives Verified 09/22/21 08:51 [From Augmentin] - Social History Does the pt smoke?: No Smoking Status: Never smoker Does the pt drink ETOH?: Yes Does the pt have substance abuse?: No - Immunizations Immunizations are current?: Yes - POLST Patient has POLST: No PD ED PE NORMAL - Vitals Vital signs reviewed: Yes - General General: Alert and oriented X 3, No acute distress, Well developed/nourished - HEENT HEENT: Atraumatic, PERRL, EOMI, Moist mucous membranes - Neck Neck: Supple, no meningeal sign - Cardiac Cardiac: Strong equal pulses - Respiratory Respiratory: No respiratory distress - Derm Derm: Normal color, Warm and dry, No rash, Other (3 cm laceration vertically to the midline of the left middle fingertip extending to the DIP joint. No tendon noted in floor of wound. 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, No motor deficit, No sensory deficit, Normal speech - Psych Psych: Normal mood, Normal affect Results - Vitals Vitals: Vital Signs - 24 hr 09/22/21 08:47 Temperature 36.7 C Heart Rate 80 Respiratory 14 Rate Blood Pressure 122/71 O2 Saturation 100 Oxygen O2 Source Room air Procedures - Laceration (location) Left middle finger Length in cm: 3 Wound type: Linear, Into subcut fat, Clean Neurovascular status: Sensory intact, Motor intact, Vascular intact Tendon involvement: Tendon intact Anesthesia: Lidocaine 1% Wound preparation: Hibiclens, Irrigated copiously NS, Wound explored, To the base Skin layer closure: Nylon, Interrupted, Size #-0 - enter number (4.0), Sutures - enter # PD MEDICAL DECISION MAKING - ED course Complexity details: considered differential, d/w patient ED course: The patient was counseled regarding wound care. We have discussed the timeline for wound check and suture removal, as well as the usual indications for return. Departure - Departure Disposition: 01 Home, Self Care Clinical Impression: Laceration Condition: Stable Instructions: ED Laceration Hand Comments: We have placed 8 sutures in your finger today. These are nylon sutures and will need to be removed in approximately 7 days. You should see a medical professional for wound check at that time. You may be seen by your primary care physician or an urgent care/walk-in. If you cannot be seen in either these venues, you may return to the emergency department. You actually according to our records had a tetanus shot 2 years ago so you are actually up-to-date. You will be due for your next tetanus shot in the year 2030. Your wound has been repaired sterilely and in general, these wounds have a very low rate of infection. However, if you begin to notice redness and swelling spreading progressively away from the wound, or you notice a red streak going up your hand, or if you notice that the wound was formally dry but has now become "mushy" and split open, you should have it rechecked immediately.
== END 2021-09-22 11:18 | disposition home or self-care (01) ==
LOC: ED 08:37
DX: S61.213A Laceration without foreign body of left middle finger without damage to nail, initial encounter (principal); W26.0XXA Contact with knife, initial encounter; Y93.G9 Activity, other involving cooking and grilling; Y99.0 Civilian activity done for income or pay
CPT/HCPCS: 12002; 99282; A9270